=== PATIENT | male | born 1945 | race Caucasian/White ===

== ENCOUNTER 2019-06-22 05:24 | Emergency (ER) | payer MEDICARE, SELFPAY ==
--- NOTE | ~2019-06-22 | XR_ITS ---
EXAMINATION: XR chest 2V DATE: 06/22/2019 06:15 INDICATION: Shortness of breath TECHNIQUE: PA and lateral views of the chest were obtained. COMPARISON: Chest radiograph dated 02/07/2019 FINDINGS: The lungs remain clear with no focal airspace opacities, pulmonary edema, pleural effusion or pneumot horax. The cardiomediastinal silhouette is normal. Thoracic kyphosis with moderate spondylosis and ch ronic mild anterior wedging of a few mid thoracic vertebral bodies. There are bridging osteophytes at multiple levels in the spine, consistent with diffuse idiopathic skeletal hyperostosis (DISH). Sever e osteoarthritis at the left acromioclavicular joint. IMPRESSION: 1. No acute cardiopulmonary disease. Reviewed, dictated and finalized at location A. XML DEVELOPER
[2019-06-22 05:20] VITALS: BP 190/79; PULSE 44; RESP 13; TEMP 36.7; O2SAT 95
--- NOTE | 2019-06-22 05:46 | ECG_ITS ---
Measurements Intervals [place] Rate: 48 P: 40 PA: 218 QRS: 19 QRSD: 178 T: 8 QT: 493 QTc: 443 Interpretive Statements SINUS BRADYCARDIA WITH FIRST DEGREE AV BLOCK ATRIAL PREMATURE COMPLEX RIGHT BUNDLE BRANCH BLOCK ABNORMAL ECG Electronically Signed On 06-22-2019 7:06:24 INTEGRATED MARKETING SPECIALIST by Eric Sanders D.O.
[2019-06-22 05:58] LABS: Basophils Percent Auto 0.3 % (0.2-1.2); Eosinophils Absolute Auto 0.1 K/mm3 (0-0.3); Eosinophils Percent Auto 1.8 % (0-4.4); Hematocrit 45.2 % (42.0-52.0); Hemoglobin 14.3 g/dL (14.0-18.0); Immature Granulocyte Absolute 0.03 K/mm3 (0.00-0.031); Immature Granulocyte Percent A 0.4 % (0-0.5); Lymphocytes Absolute Auto 0.84 K/mm3 (0.9-3.2); Lymphocytes Percent Auto 10.8 % (18.3-44.2); Mean Corpuscular HGB Conc 31.6 g/dl (32-36); Mean Corpuscular Hemoglobin 29.5 pg (26-34); Mean Corpuscular Volume 93.4 fl (80-100); Mean Platelet Volume 10.7 fl (7.4-10.4); Monocytes Absolute Auto 0.6 K/mm3 (0.1-0.6); Monocytes Percent Auto 7.7 % (2.6-8.5); Neutrophils Absolute Auto 6.2 K/mm3 (1.3-6.7); Platelet Count Result 145 k/mm3 (150-375); Red Blood Count 4.84 M/mm3 (4.6-6.20); Red Cell Distribution Width 14.6 % (11.5-14.5); White Blood Count 7.8 K/mm3 (4.5-10.0)
[2019-06-22 06:10] LABS: Blood Urea Nitrogen 11 mg/dL (9-20); Carbon Dioxide 34 mmol/L (22-30); Chloride 99 mmol/L (98-107); Estimated Glomerular Filt Rate > 60; Glucose 90 mg/dL (75-110); Potassium 3.2 mmol/L (3.4-5.0); Sodium 142 mmol/L (137-145)
[2019-06-22] MEDS: ALBUTEROL SULFATE NEB 2.5 MG/0.5 ML INH 5 MG INHALATION (06:46)
[2019-06-22] MEDS: IPRATROPIUM BR 0.02% INH SOLN 0.5 MG/2.5 ML VIAL INHALATION (06:46)
[2019-06-22 06:51] VITALS: PULSE 41; RESP 16
--- NOTE | 2019-06-22 06:52 | ED.SOB ---
HPI - SOB/Dyspnea General Chief Complaint: Shortness of Breath/Dyspnea Stated Complaint: not feeling right Time Seen by Provider: 06/22/19 06:12 History of Present Illness HPI Narrative: Shortness of breath and high blood pressure since about 0430 this morning. Awoke from sleep this morning and wasn't feeling right, so he checked his blood pressure. It was elevated at abot 190/90. He then began checking it obsessively and it was consistently elevated. During this time he also began to feel mildly SOB. He said that this may have just been in his head. Additionally he did feel dizzy. He has significant h/o CAD with multiple stents, most recent last month. He is a long time smoker and reports quitting yesterday. No fever, cough, congestion, nausea. Related Data Home Medications Medication Instructions Recorded Confirmed atorvastatin 20 mg PO HS 06/20/19 06/20/19 budesonide 9 mg PO QAM 06/20/19 06/20/19 bupropion HCl 150 mg PO BID 06/20/19 06/20/19 clopidogrel 75 mg PO DAILY 06/20/19 06/20/19 colestipol 1 g PO BID 06/20/19 06/20/19 dicyclomine 10 mg PO QID 06/20/19 06/20/19 etodolac 300 mg PO TID 06/20/19 06/20/19 famotidine 40 mg PO DAILY 06/20/19 06/20/19 ferrous sulfate 325 mg PO DAILY 06/20/19 06/20/19 furosemide 80 mg PO DAILY 06/20/19 06/20/19 gabapentin 600 mg PO QID 06/20/19 06/20/19 isosorbide mononitrate 60 mg PO DAILY 06/20/19 06/20/19 losartan 100 mg PO DAILY 06/20/19 06/20/19 modafinil 300 mg PO QAM 06/20/19 06/20/19 omega-3 fatty acids 1,000 mg PO DAILY 06/20/19 06/20/19 oxycodone-acetaminophen 1 tablet PO Q4H PRN 06/20/19 06/20/19 pantoprazole 40 mg PO QAM 06/20/19 06/20/19 trazodone 100 mg PO HS 06/20/19 06/20/19 zinc sulfate 220 mg PO DAILY 06/20/19 06/20/19 Allergies Allergy/AdvReac Type Severity Reaction Status Date / Time No Known Allergies Allergy Unknown Unverified 02/07/19 06:38 No Known Allergies Allergy Uncoded 02/07/19 06:38 Review of Systems Review of Systems: All systems reviewed & are unremarkable except as noted in HPI and below Constitutional: Constitutional: Denies chills, Denies fever(s) and Denies weakness Eyes: Eyes: Denies change in vision ENT: Reports dizziness Cardiovascular: Cardiovascular: Denies chest pain and Reports slow heart rate Respiratory: Respiratory: Denies chest congestion, Denies cough and Reports dyspnea Gastrointestinal: Gastrointestinal: Denies abdominal pain and Denies nausea Musculoskeletal: Musculoskeletal: Denies myalgias Neurologic: Denies numbness and Denies weakness Psychiatric: Psychiatric: Reports anxiety PMFSH Past Medical History Medical History (Updated 06/22/19 @ 08:33 by Pradeep Ignacio MD) CAD (coronary artery disease) Surgical History Surgical History Stented coronary artery Family History Family History Father Family history of liver disease Family history of heart disease in male family member before age 55 Sibling Family history of malignant neoplasm Family history of heart disease in male family member before age 55 Other Hypertension Social History Social History Smoking packs per day: 1.5 Smoking cigarettes per day: 30.0 Years smoked: 55 Smoking pack-years: 82.50 Smoking status: Current every day smoker Tobacco type: cigarettes Second hand tobacco smoke exposure: Yes Alcohol intake: current Gender identity (if verbalized by the patient): Female Exam Const: General: healthy appearing and alert Nutritional Appearance: well nourished Orientation/consciousness: patient oriented x3 HENMT: Head: normal to inspection Neck: Neck: normal visual inspection and no lymphadenopathy Chest: Chest palpation & inspection: normal inspection of the chest Resp: Effort & Inspection: normal respiratory effort Auscultation: rhonchi
[2019-06-22 06:56] VITALS: PULSE 43; RESP 14
[2019-06-22] MEDS: hydrALAZINE HCL 20 MG/ML VIAL 10 MG IV PUSH (07:07)
--- NOTE | 2019-06-22 07:50 | PC.NURSE ---
PT REPORTS CHEST PAIN, DR WHITLOCK MADE AWARE AND WILL GO SPEAK WITH PT
[2019-06-22 08:30] VITALS: BP 155/69; PULSE 55; RESP 18; O2SAT 97
[2019-06-22 09:30] LABS: Troponin I < 0.012 ng/mL (0.000-0.034)
[2019-06-22 10:00] VITALS: BP 167/75; PULSE 55; RESP 16; O2SAT 98
== END 2019-06-22 10:00 | disposition home or self-care (01) ==
PROVIDERS: Emergency Medicine; Emergency Provider Emergency Medicine; PCP Family Medicine Adolescent Medicine
DX: R06.02 Shortness of breath (principal); I10 Essential (primary) hypertension; I25.10 Atherosclerotic heart disease of native coronary artery without angina pectoris; Z95.5 Presence of coronary angioplasty implant and graft; F17.210 Nicotine dependence, cigarettes, uncomplicated; R00.1 Bradycardia, unspecified; I44.0 Atrioventricular block, first degree; I45.10 Unspecified right bundle-branch block
CPT/HCPCS: 36415; 71046; 80048; 84484; 85025; 93005; 94640; 96374; 99284; J0360

== ENCOUNTER 2019-06-28 13:33 | Outpatient (CLI) | payer MEDICARE, SELFPAY ==
[2019-06-28 14:47] LABS: Basophils Percent Auto 0.2 % (0.2-1.2); Eosinophils Absolute Auto 0.1 K/mm3 (0-0.3); Eosinophils Percent Auto 1.5 % (0-4.4); Hematocrit 44.5 % (42.0-52.0); Immature Granulocyte Absolute 0.03 K/mm3 (0.00-0.031); Immature Granulocyte Percent A 0.4 % (0-0.5); Immature Platelet Fraction Pct 4.2 % (0.9-11.2); Lymphocytes Absolute Auto 0.75 K/mm3 (0.9-3.2); Lymphocytes Percent Auto 9.2 % (18.3-44.2); Mean Corpuscular HGB Conc 31.5 g/dl (32-36); Mean Corpuscular Hemoglobin 29.5 pg (26-34); Mean Corpuscular Volume 93.9 fl (80-100); Mean Platelet Volume 10.9 fl (7.4-10.4); Monocytes Absolute Auto 0.5 K/mm3 (0.1-0.6); Monocytes Percent Auto 6.3 % (2.6-8.5); Neutrophils Absolute Auto 6.7 K/mm3 (1.3-6.7); Neutrophils Percent Auto 82.4 % (45.5-73.1); Platelet Count Result 132 k/mm3 (150-375); Red Blood Count 4.74 M/mm3 (4.6-6.20); Red Cell Distribution Width 14.1 % (11.5-14.5); White Blood Count 8.1 K/mm3 (4.5-10.0)
[2019-06-28 15:01] LABS: Alanine Aminotransferase 15 U/L (4-50); Albumin Level 3.6 g/dL (3.5-5.1); Alkaline Phosphatase 81 U/L (38-126); Aspartate Amino Transferase 19 U/L (17-59); Bilirubin,Total 0.8 mg/dL (0.2-1.3); Blood Urea Nitrogen 13 mg/dL (9-20); Calcium 9.1 mg/dL (8.4-10.2); Carbon Dioxide 35 mmol/L (22-30); Chloride 98 mmol/L (98-107); Estimated Glomerular Filt Rate > 60; Glucose 88 mg/dL (75-110); Potassium 3.9 mmol/L (3.4-5.0); Sodium 142 mmol/L (137-145)
[2019-07-02 23:22] LABS: Abnormal Protein Band 1 0.6 g/dL; Albumin 3.4 g/dL (3.8-4.8); Alpha 1 Globulin 0.3 g/dL (0.2-0.3); Alpha 2 Globulin 0.7 g/dL (0.5-0.9); Beta 1 Globulin 0.4 g/dL (0.4-0.6); Gamma Globulin 0.8 g/dL (0.8-1.7); Protein, Total 5.7 g/dL (6.1-8.1)
== END 2019-06-28 13:34 | disposition home or self-care (01) ==
PROVIDERS: PCP Family Medicine Adolescent Medicine
DX: K27.9 Peptic ulcer, site unspecified, unspecified as acute or chronic, without hemorrhage or perforation (principal); K52.838 Other microscopic colitis
CPT/HCPCS: 36415; 80053; 84155; 84165; 85025; 85055

== ENCOUNTER 2019-06-30 11:07 | Outpatient (CLI) | payer MEDICARE, SELFPAY ==
[2019-07-03 19:23] LABS: Albumin 24 Hr Urine 100 %; Creatinine, 24 Hr Urine 1.95 g/24 h (0.50-2.15); Total Protein/Creatinine Ratio 115 mg/g creat (<115)
[2019-07-13 10:37] LABS: Kappa & Lambda Quant. Not Indicated
== END 2019-06-30 11:08 | disposition home or self-care (01) ==
PROVIDERS: PCP Family Medicine Adolescent Medicine
DX: K27.9 Peptic ulcer, site unspecified, unspecified as acute or chronic, without hemorrhage or perforation (principal); K52.838 Other microscopic colitis; I25.10 Atherosclerotic heart disease of native coronary artery without angina pectoris
CPT/HCPCS: 36415; 81050; 82570; 83883; 84156; 84166; 86335

== ENCOUNTER 2019-07-03 07:00 | Outpatient (RCR) | payer MEDICARE, SELFPAY ==
[2019-06-20 09:59] VITALS: PULSE 50
--- NOTE | 2019-06-22 13:25 | PCCPR ---
Absent due to ED visit Ivan called states he was not sure if he was eligible to attend today. States he was in the ED last night for high B/P spike. He was taken by ambulance to [facility] ED for x 2 elevated B/P readings and SOB at home during the night. States he was treated and released. Explained he needed to see one of his MD's to obtain a release to resume rehab.
--- NOTE | 2019-06-29 18:29 | PCCPR ---
Called Ivan to check in. Last we heard from he he had went to the ED for elevated BP & SOB. He states he received a release from Dr. Talbot to return but needs to switch class times. He plans to start coming on Wednesday at 0700.
--- NOTE | 2019-07-12 10:00 | PCCPR ---
No call no show-Spoke with Ivan who states he pulled a muscle the last time he was here. He states he went to the doctor and they gave him steroids and told him to use Salonpas patches. He states it is feeling better and he hopes to come back next week.
--- NOTE | 2019-07-19 15:13 | PCCPR ---
Ivan has not returned, called him today and he stated that he did not think that he would be able to exercise anytime soon due to leg pain so will discharge from program.
== END 2019-07-19 18:38 | disposition home or self-care (01) ==
LOC: ANHCPREHAB 07:00
PROVIDERS: PCP Family Medicine Adolescent Medicine
DX: Z95.5 Presence of coronary angioplasty implant and graft (principal)
CPT/HCPCS: 93798

== ENCOUNTER 2020-06-26 13:20 | Emergency (ER) | payer MEDICARE, SELFPAY ==
--- NOTE | ~2020-06-26 | XR_ITS ---
EXAMINATION: XR knee RT 3V DATE: 06/26/2020 14:37 INDICATION: Anterior right knee pain post fall TECHNIQUE: Anteroposterior, oblique and crosstable lateral views of the right knee were obtained COMPARISON: None. FINDINGS: Linear lucency at the medial side of the patella with subtle cortical discontinuity at the articular surface of the medial facet consistent with nondisplaced fracture. Alignment remains essentially gris omic. No other lesions suspicious for acute fracture. Likely old healed fracture at the proximal meta diaphyseal region of the right fibula. At least mild joint space narrowing the medial compartment and tiny marginal osteophytes in the medial and patellofemoral compartments consistent with mild tricomp artmental osteoarthritis. Subtle chondrocalcinosis at the medial and lateral compartments. Enthesophy birgit at the anterior proximal pole of the patella. Very small right knee joint effusion. IMPRESSION: 1. Nondisplaced intra-articular fracture at the medial side of the patella. Reviewed, dictated and finalized at location A. ENT SEWING MACHINE OPERATOR
--- NOTE | ~2020-06-26 | XR_ITS ---
EXAMINATION: XR hand LT min 3V INDICATION: Left hand pain, initial encounter TECHNIQUE: Three views of the left hand are obtained. COMPARISON: None available FINDINGS: There appears to be a nondisplaced oblique fracture of the proximal aspect of the first dis giuseppe phalanx extending into the interphalangeal joint. There is soft tissue swelling of the first fing er. Moderate to severe osteoarthritis is present at the first carpometacarpal joint as well as at the first metacarpophalangeal joint. There is also moderate osteoarthritis in multiple interphalangeal j oints. IMPRESSION: 1. Likely nondisplaced intra-articular fracture at the base of the first distal phalanx. Reviewed, dictated and finalized at location A. T PROMOTER
--- NOTE | ~2020-06-26 | XR_ITS ---
EXAMINATION: XR shoulder RT min 2V INDICATION: Right shoulder pain TECHNIQUE: Four views of the right shoulder are submitted. COMPARISON: 06/22/2019 FINDINGS: The bones are osteopenic which limits the sensitivity for fracture however none is seen. Th ere is advanced osteoarthritis of the acromioclavicular and glenohumeral joints. Soft tissues are unr emarkable. IMPRESSION: 1. No acute osseous abnormality, sensitivity limited by osteopenia. Reviewed, dictated and finalized at location A. NSTONE POLISHER OPERATOR
[2020-06-26 13:33] VITALS: BP 182/75; PULSE 55; RESP 22; TEMP 36.1; O2SAT 97
--- NOTE | 2020-06-26 14:13 | ED.GENADULT ---
HPI - General Adult General Chief complaint: Fall Stated complaint: fall Time Seen by Provider: 06/26/20 13:33 Source: patient Mode of arrival: ambulatory Limitations: no limitations History of Present Illness HPI narrative: Patient is a 74-year-old male who presents to emergency department for evaluation of injuries related to a ground-level fall from 3 days ago patient was ambulating when he tripped over a dog toy falling backwards striking the right shoulder and injuring the right knee as well as the left hand patient notes aching pain of the thumb with bruising and swelling with difficulty with range of motion patient notes mild aching pain to the right shoulder and right knee patient denies other injuries or complaints presents per private vehicle in no distress has been taking his chronic pain medication with some improvement Related Data Home Medications Medication Instructions Recorded Confirmed atorvastatin 20 mg PO HS 06/20/19 06/20/19 budesonide 9 mg PO QAM 06/20/19 06/20/19 bupropion HCl 150 mg PO BID 06/20/19 06/20/19 clopidogrel 75 mg PO DAILY 06/20/19 06/20/19 colestipol 1 g PO BID 06/20/19 06/20/19 dicyclomine 10 mg PO QID 06/20/19 06/20/19 etodolac 300 mg PO TID 06/20/19 06/20/19 famotidine 40 mg PO DAILY 06/20/19 06/20/19 ferrous sulfate 325 mg PO DAILY 06/20/19 06/20/19 furosemide 80 mg PO DAILY 06/20/19 06/20/19 gabapentin 600 mg PO QID 06/20/19 06/20/19 isosorbide mononitrate 60 mg PO DAILY 06/20/19 06/20/19 losartan 100 mg PO DAILY 06/20/19 06/20/19 modafinil 300 mg PO QAM 06/20/19 06/20/19 omega-3 fatty acids 1,000 mg PO DAILY 06/20/19 06/20/19 oxycodone-acetaminophen 1 tablet PO Q4H PRN 06/20/19 06/20/19 pantoprazole 40 mg PO QAM 06/20/19 06/20/19 trazodone 100 mg PO HS 06/20/19 06/20/19 zinc sulfate 220 mg PO DAILY 06/20/19 06/20/19 Allergies Allergy/AdvReac Type Severity Reaction Status Date / Time ticagrelor [From Brilinta] Allergy Anxiety Verified 06/26/20 13:45 Review of Systems Review of Systems: All systems reviewed & are unremarkable except as noted in HPI and below PMFSH Past Medical History Medical History CAD (coronary artery disease) Surgical History Surgical History Stented coronary artery Family History Family History Father Family history of liver disease Family history of heart disease in male family member before age 55 Sibling Family history of malignant neoplasm Family history of heart disease in male family member before age 55 Other Hypertension Social History Social History Smoking packs per day: 1.5 Smoking cigarettes per day: 30.0 Years smoked: 55 Smoking pack-years: 82.50 Smoking status: Current every day smoker Tobacco type: cigarettes Second hand tobacco smoke exposure: Yes Alcohol intake: current Gender identity (if verbalized by the patient): Female Exam Narrative: Exam Narrative: GENERAL: Well-appearing, well-nourished, and in no acute distress. HEAD: Normocephalic, atraumatic. EYES: PERRLA and EOMI. ENT: Nares clear, no rhinorrhea or epistaxis. Mucous membranes moist. CHEST: Clear to auscultation. No respiratory distress. No wheezes rales or rhonchi HEART: Regular rate and rhythm. No murmur heard. Normal peripheral pulses. EXTREMITIES: Tenderness of the right thumb with some bruising. Tenderness to the anterior right knee. Tenderness of the right shoulder. No cervical thoracic or lumbar tenderness SKIN: Warm, dry, no rash. NEURO: No focal deficits. Alert and oriented x3. Neurovascularly intact. Cranial nerves II through XII grossly intact. Normal speech and gait PSYCH: Normal mood and affect. Course Course Emergency Course: Patient in the room no distress aware of case findings treatment plan
== END 2020-06-26 15:41 | disposition home or self-care (01) ==
PROVIDERS: Emergency Provider Emergency Medicine; PCP Family Medicine Adolescent Medicine
DX: S82.091A Other fracture of right patella, initial encounter for closed fracture (principal); S62.525A Nondisplaced fracture of distal phalanx of left thumb, initial encounter for closed fracture; I25.10 Atherosclerotic heart disease of native coronary artery without angina pectoris; Z95.5 Presence of coronary angioplasty implant and graft; F17.210 Nicotine dependence, cigarettes, uncomplicated; M85.811 Other specified disorders of bone density and structure, right shoulder; W18.09XA Striking against other object with subsequent fall, initial encounter
CPT/HCPCS: 29130; 73030; 73130; 73562; 99284

== ENCOUNTER 2021-09-02 10:17 | Outpatient (CLI) | payer MEDICARE, SELFPAY ==
[2021-09-02 11:03] LABS: Basophils Percent Auto 0.5 % (0.2-1.2); Eosinophils Absolute Auto 0.2 K/mm3 (0-0.3); Eosinophils Percent Auto 3.8 % (0-4.4); Hematocrit 38.9 % (42.0-52.0); Hemoglobin 12.1 g/dL (14.0-18.0); Immature Granulocyte Absolute 0.02 K/mm3 (0.00-0.031); Immature Granulocyte Percent A 0.3 % (0-0.5); Immature Platelet Fraction Pct 4.3 % (0.9-11.2); Lymphocytes Absolute Auto 0.96 K/mm3 (0.9-3.2); Lymphocytes Percent Auto 15.9 % (18.3-44.2); Mean Corpuscular HGB Conc 31.1 g/dl (32-36); Mean Corpuscular Hemoglobin 29.4 pg (26-34); Mean Corpuscular Volume 94.6 fl (80-100); Mean Platelet Volume 10.4 fl (7.4-10.4); Monocytes Absolute Auto 0.5 K/mm3 (0.1-0.6); Monocytes Percent Auto 8.9 % (2.6-8.5); Neutrophils Absolute Auto 4.3 K/mm3 (1.3-6.7); Neutrophils Percent Auto 70.6 % (45.5-73.1); Platelet Count Result 142 k/mm3 (150-375); Red Blood Count 4.11 M/mm3 (4.6-6.20); Red Cell Distribution Width 14.2 % (11.5-14.5)
[2021-09-02 11:16] LABS: Creatinine Urine 61.7 mg/dL; Total Protein Urine Random 10 mg/dL; Ur Ttl Prot Creatinine Ratio 0.16 mg/mg (0-0.20)
[2021-09-02 11:19] LABS: Albumin Level 3.7 g/dL (3.5-5.1); Anion Gap 6 mmol/L (8-16); Blood Urea Nitrogen 15 mg/dL (9-20); Calcium 8.8 mg/dL (8.4-10.2); Carbon Dioxide 29 mmol/L (22-30); Chloride 104 mmol/L (98-107); Estimated Glomerular Filt Rate > 60; Glucose 100 mg/dL (65-110); Potassium 3.8 mmol/L (3.4-5.0); Sodium 139 mmol/L (137-145)
[2021-09-02 11:30] LABS: Add Urine Microscopic? YES; Appearance Urine Clear (Clear); Bilirubin Urine Negative (Negative); Blood Urine Negative (Negative); Color Urine Yellow (Yellow); Glucose Urine UA Negative (Negative); Ketones Urine Negative (Negative); Leukocyte Esterase Ur Negative LEU/UL (NEGATIVE); Nitrate Urine Negative (Negative); Protein Urine Negative (Negative); RBC Urine 0-2 /hpf (0-2); Specific Grav Ur 1.012 (1.001-1.035); WBC Urine 0-3 /hpf (0-3)
== END 2021-09-02 10:18 | disposition home or self-care (01) ==
PROVIDERS: PCP Family Medicine Adolescent Medicine
DX: N18.30 Chronic kidney disease, stage 3 unspecified (principal); D63.1 Anemia in chronic kidney disease; R80.0 Isolated proteinuria; N25.0 Renal osteodystrophy
CPT/HCPCS: 36415; 80069; 81001; 82570; 84156; 85025; 85055

== ENCOUNTER → 2021-12-15 15:36 | Outpatient (CLI) | payer MEDICARE, SELFPAY ==
--- NOTE | ~2021-12-15 | MR_ITS ---
EXAMINATION: MR lumbar spine wo con DATE: 12/15/2021 16:19 INDICATION: Back pain. Radiculopathy. TECHNIQUE: Magnetic resonance imaging (MRI) of the lumbar spine was performed without intravenous con trast. Sequences included sagittal T2-weighted FSE, sagittal T2-weighted FS FSE, sagittal T1-weighted FSE, and axial T2-weighted FSE. COMPARISON: CT lumbar spine 02/07/2019 FINDINGS: There is 11 degrees levoscoliosis of thoracolumbar spine. There is 5 mm anterolisthesis of L4 on L5. There is mild chronic height loss of L5 vertebral body posteriorly. There is mildly decreas ed disc height at L4-L5 and moderately decreased disc height at L5-S1. The distal spinal cord signal intensity is normal. The conus medullaris is at T12-L1. There are cysts in left kidney measuring up t o 2.3 cm. There is a 3.7 cm fusiform infrarenal aortic aneurysm. The following disc levels are specif ically discussed: L1-L2: There is a left foraminal protrusion. There is mild bilateral facet joint osteoarthritis. Ther e is mild left neural foraminal stenosis. There is no central canal stenosis. L2-L3: The disc is bulging. There is moderate bilateral facet joint osteoarthritis. There is mild rodriguez ateral neural foraminal stenosis. There is mild central canal stenosis. L3-L4: The disc is bulging and has an annular fissure. There is severe bilateral facet joint osteoart hritis. There is hypertrophy of the ligamentum flavum. There is moderate bilateral neural foraminal s tenosis. There is severe central canal stenosis. L4-L5: The disc is bulging and has an annular fissure. There is severe bilateral facet joint osteoart hritis. There is hypertrophy of the ligamentum flavum. There is moderate right and mild left neural f oraminal stenosis. There is moderate central canal stenosis. L5-S1: The disc is bulging and has an annular fissure. There is severe bilateral facet joint osteoart hritis. There is mild right and moderate left neural foraminal stenosis. There is mild central canal stenosis. IMPRESSION: 1. Severe lumbar spondylosis. 2. 3.7 cm fusiform infrarenal aortic aneurysm. Reviewed, dictated and finalized at location A.
== END ==
PROVIDERS: Visit Provider Nurse Practitioner Family
DX: M54.50 Low back pain, unspecified (principal); M47.816 Spondylosis without myelopathy or radiculopathy, lumbar region; I71.4 Abdominal aortic aneurysm, without rupture
CPT/HCPCS: 72148

== ENCOUNTER 2022-02-04 17:08 | Emergency (ER) | payer MEDICARE, SELFPAY ==
--- NOTE | ~2022-02-04 | XR_ITS ---
EXAMINATION: XR pelvis 1-2V DATE: 02/04/2022 18:56 INDICATION: Fall with bruising to the right hip TECHNIQUE: An anteroposterior view of the pelvis was obtained. COMPARISON: Pelvis radiograph dated 02/07/2019 and abdomen and pelvis CT dated 05/06/2015 FINDINGS: Bone alignment is normal. No fracture. Mild to moderate osteoarthritis at the bilateral hips. Moderat e to severe lumbar spondylosis. Moderate bilateral sacroiliac osteoarthritis. Scattered enthesophytes . Atherosclerotic calcification along the abdominal aorta delineating and approximately 4.8 cm fusifo rm aneurysm. IMPRESSION: 1. Degenerative skeletal changes. No acute osseous abnormality. 2. Abdominal aortic aneurysm. Reviewed, dictated and finalized at location A.
--- NOTE | ~2022-02-04 | XR_ITS ---
EXAMINATION: XR shoulder RT min 2V, XR chest 2V DATE: 02/04/2022 18:56 INDICATION: Right shoulder and chest pain post fall TECHNIQUE: 1. AP internally and externally rotated, AP oblique externally rotated and transscapular Y views of t he right shoulder were obtained. 2. PA and lateral views of the chest were obtained. COMPARISON: Right shoulder radiograph dated 06/26/2020 and chest radiograph dated 06/22/2019 FINDINGS: CHEST: Lungs are clear with no focal airspace opacities, pulmonary edema, pleural effusion or pneumothorax. Cardiomediastinal silhouette is normal. Mild thoracic kyphosis with chronic mild anterior wedging of a couple mid thoracic vertebral bodies. There are bridging osteophytes at multiple levels in the spin e, consistent with diffuse idiopathic skeletal hyperostosis (DISH). Right shoulder: Normal alignment. No fracture. Moderate right glenohumeral osteoarthritis. Severe right acromioclavi cular osteoarthritis. Acromioclavicular joint is normal. Soft tissues are unremarkable. IMPRESSION: 1. No acute cardiopulmonary disease. 2. Moderate right glenohumeral and severe acromioclavicular osteoarthritis. No acute osseous abnormal ity. Reviewed, dictated and finalized at location A. IMPRESSION: 1. No acute cardiopulmonary disease. 2. Moderate right glenohumeral and severe acromioclavicular osteoarthritis. No acute osseous abnormality.
--- NOTE | ~2022-02-04 | CT_ITS ---
EXAMINATION: CTA chest abdomen pelvis DATE: 02/04/2022 20:57 INDICATION: Abdominal aortic aneurysm. Back pain radiating to the groin post fall down stairs 10 days prior. TECHNIQUE: Computed tomographic angiography (CTA) of the chest and abdomen and pelvis was performed w ith 100 cc of Omnipaque-350 intravenous contrast. Additional 3D reconstructions utilizing rotating ma ximum intensity projection (MIP) were performed. Automated exposure control and iterative reconstruct ion technique were employed. The dose-length product was 1271.80 mGy-cm. COMPARISON: 05/06/2015 FINDINGS: Chest: Mild emphysema at the apices of the lungs. Mild discoid atelectasis at the lingula and mild dependent atelectasis in the bilateral lower lobes. No pneumonia, pulmonary edema, pleural effusion or pneumot horax. Mild cardiomegaly. Atherosclerotic coronary artery calcification. No pericardial effusion. Tho racic aorta is normal in caliber with no dissection. No pathologically enlarged thoracic lymphadenopa thy. Mild thoracic kyphosis with chronic mild anterior wedging of a couple mid thoracic vertebral bod ies. Abdomen and pelvis: Cholecystectomy clips the gallbladder fossa. Liver, spleen, pancreas, bilateral adrenal glands are no rmal. Multiple left renal cysts measuring up to 3.5 cm. 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 Bladder is normal. Extensive colonic diverticulosis w ithout adjacent inflammatory change to suggest diverticulitis. No bowel obstruction. The appendix is not visualized and also reportedly surgically absent. Fusiform infrarenal abdominal aortic aneurysm m easuring up to 4.4 cm in maximal diameter. No free intraperitoneal gas or fluid. No pathologically en larged abdominal or pelvic lymphadenopathy. Mild lumbar spondylosis with multilevel severe facet oste oarthritis. 5 mm anterolisthesis L4 on L5. No acute osseous abnormality. IMPRESSION: 1. No evident fracture or acute intrathoracic, abdominal or pelvic process. 2. 4.4 cm fusiform infrarenal abdominal aortic aneurysm. 3. Cardiomegaly. Reviewed, dictated and finalized at location A.
[2022-02-04 17:10] VITALS: BP 161/67; PULSE 62; RESP 16; TEMP 36.8; O2SAT 100
[2022-02-04 18:17] VITALS: BP 156/71; PULSE 57; RESP 21; O2SAT 99
--- NOTE | 2022-02-04 19:19 | ED.GENADULT ---
HPI - General Adult General Chief complaint: Fall Stated complaint: pain r/t fall Time Seen by Provider: 02/04/22 17:36 History of Present Illness HPI narrative: This is a 76-year-old man presenting to the ED with after a fall 10 days ago. Patient says that he was going down some stairs when he lost balance. He hit his shoulder, middle of his back and his hip on the way down. Patient says he also struck the side of his face but he did not lose consciousness, he is not on blood thinners, he is not complaining of headache at this time. He denies any neck pain. He denies numbness tingling or weakness to any extremity. He has been ambulatory since the incident and been taking his oxycodone 10 mg q.4 as instructed. Patient is currently complaining of right shoulder pain, pain in the middle of his back, and right hip pain. Related Data Home Medications Medication Instructions Recorded Confirmed colestipol 1 gram tablet 1 g PO BID 06/20/19 10/08/21 famotidine 40 mg tablet 40 mg PO DAILY 06/20/19 10/08/21 ferrous sulfate 325 mg (65 mg 325 mg PO DAILY 06/20/19 10/08/21 iron) tablet Allergies Allergy/AdvReac Type Severity Reaction Status Date / Time ticagrelor [From Brilinta] Allergy Anxiety Verified 02/04/22 18:19 Review of Systems Review of Systems: CONSTITUTIONAL: Denies night sweats. EYES: No eye pain ENT: Denies rhinorrhea CARDIOVASCULAR: Denies palpitations RESPIRATORY: Denies hemoptysis GASTROINTESTINAL: Denies hematemesis GENITOURINARY: Denies hematuria. SKIN: Denies rash MUSCULOSKELETAL: Denies myalgia. NEUROLOGIC: Denies weakness. PSYCHIATRIC: Denies delusions [facility] Past Medical History Medical History (Updated 02/04/22 @ 21:56 by Edward Moeller MD) Chronic back pain Normal colonoscopy 08/24 Surgical History Surgical History History of cholecystectomy History of foot surgery Left 2005; Right 2010 History of right nephrectomy 2010 History of rotator cuff surgery Left Stented coronary artery Family History Family History Father Hypertension Acute myocardial infarction Sibling Family history of malignant neoplasm Family history of heart disease in male family member before age 55 Social History Social History Smoking packs per day: 1.5 Smoking cigarettes per day: 30.0 Years smoked: 55 Smoking pack-years: 82.50 Smoking status: Current every day smoker Tobacco type: cigarettes Second hand tobacco smoke exposure: Yes Alcohol intake: never Substance use: never Substance use type: marijuana Gender identity (if verbalized by the patient): Female Sexual Orientation (if Verbalized by the Patient): Straight or Heterosexual Spiritual care concerns: No Agree to blood products: Yes Exam Narrative: APPEARANCE: No apparent distress. Head atraumatic. EYES: PERRLA/EOMI, NOSE: Normal no drainage NECK: Supple, Trachea midline RESPIRATORY: CTAB, No increased work of breathing. CARDIOVASCULAR: S1S2 appreciated ABDOMINAL: Soft, nontender, nondistended, MUSCULOSKELETAl: focal exam of the right upper extremity revealed no obvious deformities of the right shoulder. Patient has pain with active range of motion but not passive range of motion. Median ulnar and radial nerve distributions are intact with 5/5 motor strength pulses are +2 in the radial ulnar distribution cap refills less than 2 seconds. Back exam: No ecchymosis, step-offs or midline tenderness. There is some tenderness to the parathoracic muscles at T10-T12. Patient's right knee is essentially locked at 180? all of this is chronic. Patient has no pain in the hips with ranging of the lower extremities. NEURO: Alert. Cranial nerves 2-12 grossly intact. Sensation light touch, motor function cerebellar function intact for 4 extremities. Gai
[2022-02-04] MEDS: methocarbamoL 750 MG TABLET PO (19:47)
[2022-02-04 20:20] LABS: Basophils Percent Auto 0.4 % (0.2-1.2); Eosinophils Absolute Auto 0.2 K/mm3 (0-0.3); Eosinophils Percent Auto 2.2 % (0-4.4); Immature Granulocyte Absolute 0.02 K/mm3 (0.00-0.031); Immature Granulocyte Percent A 0.3 % (0-0.5); Lymphocytes Absolute Auto 1.03 K/mm3 (0.9-3.2); Lymphocytes Percent Auto 14.8 % (18.3-44.2); Mean Corpuscular HGB Conc 31.6 g/dl (32-36); Mean Platelet Volume 10.4 fl (7.4-10.4); Monocytes Absolute Auto 0.5 K/mm3 (0.1-0.6); Monocytes Percent Auto 6.5 % (2.6-8.5); Neutrophils Absolute Auto 5.3 K/mm3 (1.3-6.7); Neutrophils Percent Auto 75.8 % (45.5-73.1); Platelet Count Result 162 k/mm3 (150-375); Red Cell Distribution Width 14.1 % (11.5-14.5)
[2022-02-04 20:33] LABS: Prothrombin Time 13.1 Seconds (11.1-14.7)
[2022-02-04 20:34] LABS: Alanine Aminotransferase 16 U/L (6-50); Albumin Level 3.6 g/dL (3.5-5.1); Alkaline Phosphatase 89 U/L (38-126); Anion Gap 6 mmol/L (8-16); Aspartate Amino Transferase 23 U/L (17-59); Bilirubin,Total 0.4 mg/dL (0.2-1.3); Blood Urea Nitrogen 14 mg/dL (9-20); Calcium 8.9 mg/dL (8.4-10.2); Carbon Dioxide 32 mmol/L (22-30); Chloride 104 mmol/L (98-107); Estimated CRCL calculation 50 ml/min; Estimated Glomerular Filt Rate 59; Glucose 97 mg/dL (65-110); Potassium 3.8 mmol/L (3.4-5.0); Sodium 142 mmol/L (137-145)
[2022-02-04 21:00] VITALS: BP 161/86; PULSE 58; RESP 16; O2SAT 97
[2022-02-04 22:46] VITALS: BP 148/86; PULSE 66; RESP 16; O2SAT 99
== END 2022-02-04 22:15 | disposition home or self-care (01) ==
PROVIDERS: Emergency Provider Emergency Medicine; PCP Family Medicine Adolescent Medicine
DX: M54.50 Low back pain, unspecified (principal); I71.4 Abdominal aortic aneurysm, without rupture; M25.511 Pain in right shoulder; M54.6 Pain in thoracic spine; R07.9 Chest pain, unspecified; F17.210 Nicotine dependence, cigarettes, uncomplicated; Z90.5 Acquired absence of kidney
CPT/HCPCS: 36415; 71046; 71275; 72170; 73030; 74174; 80053; 83735; 85025; 85610; 85730; 99284; A9270; Q9967

== ENCOUNTER 2022-03-15 15:07 | Inpatient (IN) | payer MEDICARE, SELFPAY ==
[2022-03-15] VITALS (15 sets, daily range): BP systolic 100–133; BP diastolic 43–75; PULSE 57–84; RESP 14–24; TEMP 36.8–38; O2SAT 93–100
--- NOTE | ~2022-03-15 | MR_ITS ---
EXAMINATION: MR brain/brain stem wo/w con DATE: 03/17/2022 16:10 INDICATION: Altered mental status. TECHNIQUE: Magnetic resonance imaging (MRI) of the brain and brainstem was performed without and with 19 mL MultiHance intravenous contrast. COMPARISON: Head CT 03/15/2022 FINDINGS: There are scattered areas of nonspecific increased T2-weighted signal intensity in the cere bral white matter and jovon. 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 There is no intracranial hemorrhage, acute infarction, or abnormal intracranial mass lesion. The ventricles are n ormal in size. There are likely changes of ocular lens replacement surgeries. There is mild mucosal t hickening in the paranasal sinuses. The mastoid air cells are normal. IMPRESSION: 1. 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 2. Mild nonspecific cerebral white matter disease and pontine disease, which likely represents chroni c small vessel ischemic disease. Reviewed, dictated and finalized at location A. CIATE PROFESSOR OF SOCIOLOGY IMPRESSION: 1. 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 2. Mild nonspecific cerebral white matter disease and pontine disease, which hector coleman represents chronic small vessel ischemic disease.
--- NOTE | ~2022-03-15 | XR_ITS ---
EXAMINATION: XR chest 1V portable DATE: 03/17/2022 07:20 INDICATION: Shortness of breath TECHNIQUE: frontal view of the chest was obtained. COMPARISON: Chest radiograph dated 03/17/2022 at 6:05 AM FINDINGS: No significant interval change in patchy airspace opacities throughout the left lung sparing the apex and in the right midlung zone. More streaky atelectasis at the right lung base. No pneumothorax. No pneumothorax or right-sided pleural effusion. Left pleural effusion not excludable. Cardiomegaly. IMPRESSION: 1. No significant interval change in patchy airspace opacities throughout the left lung relatively sp aring the apex and in the right midlung zone which could represent multifocal pneumonia, asymmetric p ulmonary edema and left pleural effusion not excludable. 2. Cardiomegaly. Reviewed, dictated and finalized at location A. NTIFIC WRITER IMPRESSION: 1. No significant interval change in patchy airspace opacities throughout the l eft lung relatively sparing the apex and in the right midlung zone which could represent multifocal pneumonia, asymmetric pulmonary edema and left pleural eff usion not excludable. 2. Cardiomegaly.
--- NOTE | ~2022-03-15 | XR_ITS ---
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 RESULT: Lines, tubes, and devices: None. Lungs and pleura: Diffuse left and patchy right lung groundglass opacities. Left mid and lower lung consolidation. Moderate left costophrenic angle blunting. Cardiomediastinal silhouette: Stable. Other: No acute osseous or upper abdominal finding. IMPRESSION: Pulmonary opacities may reflect pneumonia or asymmetric edema. Small-moderate left pleural effusion. Reviewed, dictated and finalized at location K. INE CHAIN MAKER IMPRESSION: Pulmonary opacities may reflect pneumonia or asymmetric edema. Small-moderate l eft pleural effusion.
--- NOTE | ~2022-03-15 | XR_ITS ---
EXAMINATION: XR chest 1V portable DATE: 03/24/2022 09:40 INDICATION: Pneumonia. TECHNIQUE: A single frontal view of the chest was obtained. COMPARISON: Chest 2 views 03/21/2022, chest CT 02/04/2022 FINDINGS: There are airspace opacities in left mid and lower lung zones. There is a small left pleura l effusion. No pneumothorax. The heart size is normal. IMPRESSION: 1. Airspace opacities in left mid and lower lung zones with interval improvement, consistent with ate lectasis versus pneumonia. 2. Stable small left pleural effusion. Reviewed, dictated and finalized at location A. IALIST PHYSICIANS IMPRESSION: 1. Airspace opacities in left mid and lower lung zones with interval improvemen t, consistent with atelectasis versus pneumonia. 2. Stable small left pleural effusion.
--- NOTE | ~2022-03-15 | CT_ITS ---
EXAMINATION: CT brain wo con DATE: 03/15/2022 17:49 INDICATION: AMS, confusion . TECHNIQUE: Computed tomography (CT) of the head was performed without intravenous contrast. The mA wa s adjusted according to patient size. Iterative reconstruction technique was employed. The dose-lengt h product was 605.33 mGy-cm. COMPARISON: 02/07/2019 FINDINGS: No acute intracranial hemorrhage or extra-axial fluid collection. No hydrocephalus, mass, or herniation. No acute ischemic infarct. Unremarkable dural venous sinus attenuation. No acute osseous abnormality. The aerated spaces are clear. Mild atrophy and chronic white matter change. Atherosclerotic intracranial calcification. Bilateral l ens replacements. IMPRESSION: No acute intracranial process. Reviewed, dictated and finalized at location K. NICAL IMPLEMENTATION LEAD
--- NOTE | ~2022-03-15 | XR_ITS ---
EXAMINATION: XR chest 1V portable INDICATION: Shortness of breath, pneumonia TECHNIQUE: Portable AP chest at 0534 hours COMPARISON: 03/17/2022 FINDINGS: Diffuse opacities persist throughout all lung zones with interval worsening. There is no pn eumothorax. Cardiomegaly is noted. There appears to be a small left pleural effusion. IMPRESSION: 1. Diffuse lung disease with interval worsening, consistent with pneumonia and/or pulmonary edema. 2. Cardiomegaly. Reviewed, dictated and finalized at location B. ATOR DISPATCHER IMPRESSION: 1. Diffuse lung disease with interval worsening, consistent with pneumonia and/ or pulmonary edema. 2. Cardiomegaly.
--- NOTE | ~2022-03-15 | XR_ITS ---
EXAMINATION: XR lumbar puncture diagnostic DATE: 03/19/2022 14:44 INDICATION: Altered mental status. Concern for encephalitis/meningitis TECHNIQUE: Prior lumbar spine MRI dated 12/15/[address] abdomen and pelvis dated 01/27/2022 were revie wed. The tip of the conus was noted to be at the level of T12-L1. Given the severe facet osteoarthrit is and hypertrophic change along the spinous processes in the mid to lower lumbar spine and the sever e central canal stenosis at L3-L4 and L4-L5 was elected to access the central canal at the level of L 1-L2. The procedure including the risks and benefits was discussed with the patient's . Risks dis cussed included spinal headache, cerebrospinal fluid leak, bleeding, and infection. She understood th e risks and agreed to proceed. A timeout was performed to verify the patient's name, date of , and procedure to be performed. The skin overlying the L1-L2 level was prepped and draped in usual sterile fashion. Subcutaneous 1% lidocaine was used for local anesthesia. A 20 gauge spinal needle was advanced under fluoroscopic guidance. The needle was removed and the entry site was cleaned and d ressed. There were no immediate complications. A total of 2 AP fluoroscopic image(s) 1 lateral radio graph were obtained. The amount of fluoroscopy time used during this procedure was 0.2 minutes. The p atient was taken to return to the floor in the company of his nurse. FINDINGS: Real-time fluoroscopy demonstrates the needle at the L1-L2 level. Opening pressure was 13 c m water. (Normal range is variably defined as 6-20 cm water and up to 25 cm water in obese patients. Pressure >25 cm water is one of the modified Dandy criteria for idiopathic intracranial hypertension) . 14 mL of clear, colorless fluid was collected in 4 tubes. IMPRESSION: 1. Successful fluoro-guided lumbar puncture. Reviewed, dictated and finalized at location A. OR RUBY DEVELOPER
--- NOTE | ~2022-03-15 | XR_ITS ---
EXAMINATION: XR chest 1V portable DATE: 03/17/2022 06:20 INDICATION: Hypoxia TECHNIQUE: frontal view of the chest was obtained. COMPARISON: Chest radiograph dated 03/16/2022 FINDINGS: Airspace opacities in the left mid to lower lung zone in the right midlung zone. No pneumothorax or d efinitive pleural effusion. Mild cardiomegaly. Moderate degenerative skeletal changes in the spine an d both shoulders. Chronic midthoracic compression fracture. IMPRESSION: 1. Airspace opacities in the left mid to lower and right mid lung zones most consistent with multifoc al pneumonia with differential including asymmetric pulmonary edema. 2. Cardiomegaly. Reviewed, dictated and finalized at location A. FABRIC CUTTER IMPRESSION: 1. Airspace opacities in the left mid to lower and right mid lung zones most co nsistent with multifocal pneumonia with differential including asymmetric pulmo nary edema. 2. Cardiomegaly.
--- NOTE | ~2022-03-15 | XR_ITS ---
EXAMINATION: XR chest 2V DATE: 03/21/2022 09:32 INDICATION: Pneumonia and shortness of breath TECHNIQUE: AP and lateral views of the chest are obtained. COMPARISON: 03/19/2022 FINDINGS: Previously described airspace opacities on the right have nearly completely resolved with m inimal persistent airspace opacity seen in the right lung base. Diffuse opacities of the left lung martinez ve improved but persist in the mid and lower lung zones. There are small pleural effusions. No pneumo thorax is identified. The cardiomediastinal silhouette is normal. There is severe thoracic spondylosi s. IMPRESSION: 1. Diffuse lung disease with interval improvement, consistent with resolving pneumonia and/or pulmona ry edema. 2. Small pleural effusions. Reviewed, dictated and finalized at location A. ING PRINTER IMPRESSION: 1. Diffuse lung disease with interval improvement, consistent with resolving pn eumonia and/or pulmonary edema. 2. Small pleural effusions.
--- NOTE | ~2022-03-15 | XR_ITS ---
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 RESULT: Lines, tubes, and devices: None. Lungs and pleura: Ill-defined subsegmental and peripheral opacities in the left mid and lower lung. Mild left costophrenic angle blunting. Senescent change. Cardiomediastinal silhouette: Stable. Other: No acute osseous or upper abdominal finding. IMPRESSION: Findings suspicious for left lower lobe pneumonia. Reviewed, dictated and finalized at location K. WORKER
--- NOTE | ~2022-03-15 | CT_ITS ---
EXAMINATION: CTA brain carotid DATE: 03/18/2022 14:14 INDICATION: Aphasia. Altered mental status. TECHNIQUE: Computed tomographic angiography (CTA) of the head was performed without and with 100 mL O mnipaque-350 intravenous contrast. CTA of the neck was performed with intravenous contrast. Automated exposure control and iterative reconstruction technique were employed. The dose-length product was 2 126.98 mGy-cm. Maximum intensity projection and volume rendered 3D-reconstructions were created by britney quigley technologist on a separate workstation. COMPARISON: Head CT 03/15/2022, brain MRI 03/17/2022 FINDINGS: HEAD CTA: There are scattered areas of low attenuation in the cerebral white matter. There is no intr acranial hemorrhage, acute infarction, or abnormal intracranial mass lesion. The ventricles are bj l in size. There are likely changes of ocular lens replacement surgeries. The mastoid air cells are n ormal. There is mild mucosal thickening in the paranasal sinuses. There is cerumen in left external a uditory canal. Left vertebral artery is dominant. There is no significant stenosis of basilar artery or the posterior cerebral arteries. There is no significant stenosis of the intracranial internal car otid arteries or anterior or middle cerebral arteries. Anterior communicating artery is normal. Poste rior communicating arteries are not identified. There is no aneurysm. NECK CTA: There is mild emphysema. There are airspace opacities in left upper lobe, consistent with p neumonia. There are no pathologically enlarged lymph nodes. There is no significant stenosis of the v ertebral arteries. There is plaque in the proximal internal carotid arteries. There is 0% stenosis of the proximal right internal carotid artery relative to normal distal artery lumen diameter (NASCET c riteria). There is 0% stenosis of the proximal left internal carotid artery relative to normal distal artery lumen diameter. There is moderate cervical spondylosis. IMPRESSION: 1. Mild nonspecific cerebral white matter disease, which likely represents chronic small vessel ische jsaon disease. 2. No aneurysm or significant intracranial arterial stenosis. 3. 0% stenosis of the proximal internal carotid arteries relative to normal distal artery lumen diame ters (NASCET criteria). 4. Left upper lobe pneumonia. 5. Mild emphysema. Reviewed, dictated and finalized at location A. ERY INTERN IMPRESSION: 1. Mild nonspecific cerebral white matter disease, which likely represents chronic care nurse julian small vessel ischemic disease. 2. No aneurysm or significant intracranial arterial stenosis. 3. 0% stenosis of the proximal internal carotid arteries relative to normal dis giuseppe artery lumen diameters (NASCET criteria). 4. Left upper lobe pneumonia. 5. Mild emphysema.
--- NOTE | 2022-03-15 15:16 | ECG_ITS ---
Measurements Intervals [place] Rate: 57 P: -51 [place]: 160 QRS: 32 QRSD: 177 T: 35 QT: 468 QTc: 456 Interpretive Statements SINUS BRADYCARDIA BORDERLINE AV CONDUCTION DELAY RIGHT BUNDLE BRANCH BLOCK MINIMAL Q WAVES- INFERIOR LEADS ABNORMAL ECG COMPARED TO ECG 06/22/2019 05:31:24 NO SIGNIFICANT CHANGES Electronically Signed On 03-15-2022 17:32:57 DIRECTOR EXECUTIVE COMMUNICATIONS by Eric Sanders D.O.
[2022-03-15 15:26] LABS: Basophils Percent Auto 0.1 % (0.2-1.2); Eosinophils Percent Auto 0.1 % (0-4.4); Hemoglobin 10.8 g/dL (14.0-18.0); Immature Granulocyte Absolute 0.15 K/mm3 (0.00-0.031); Immature Granulocyte Percent A 1.3 % (0-0.5); Immature Platelet Fraction Pct 7.8 % (0.9-11.2); Lymphocytes Absolute Auto 0.23 K/mm3 (0.9-3.2); Lymphocytes Percent Auto 2.1 % (18.3-44.2); Mean Corpuscular HGB Conc 31.8 g/dl (32-36); Mean Corpuscular Volume 91.4 fl (80-100); Monocytes Absolute Auto 0.7 K/mm3 (0.1-0.6); Monocytes Percent Auto 5.9 % (2.6-8.5); Neutrophils Absolute Auto 10.1 K/mm3 (1.3-6.7); Neutrophils Percent Auto 90.5 % (45.5-73.1); Platelet Count Result 124 k/mm3 (150-375); Red Blood Count 3.72 M/mm3 (4.6-6.20); Red Cell Distribution Width 13.9 % (11.5-14.5); White Blood Count 11.2 K/mm3 (4.5-10.0)
[2022-03-15 15:35] LABS: Alanine Aminotransferase 18 U/L (6-50); Albumin Level 3.4 g/dL (3.5-5.1); Alkaline Phosphatase 90 U/L (38-126); Anion Gap 9 mmol/L (8-16); Aspartate Amino Transferase 22 U/L (17-59); Blood Urea Nitrogen 23 mg/dL (9-20); Calcium 8.6 mg/dL (8.4-10.2); Carbon Dioxide 27 mmol/L (22-30); Chloride 100 mmol/L (98-107); Estimated CRCL calculation 36 ml/min; Estimated Glomerular Filt Rate 39; Glucose 93 mg/dL (65-110); Potassium 3.6 mmol/L (3.4-5.0); Sodium 136 mmol/L (137-145)
[2022-03-15 15:39] LABS: Ovalocytes 1+ (NORMAL); Platelet Estimate Decreased (Adequate); Schistocytes None Seen (NORMAL)
--- NOTE | 2022-03-15 16:28 | ED.WEAKNESS ---
HPI - Weakness General Chief complaint: Weakness <CATHI Aguilar Last Filed: 03/15/22 18:45> Stated complaint: increased weakness x 1-2 days <CATHI Aguilar Last Filed: 03/15/22 18:45> Time Seen by Provider: 03/15/22 16:24 <CATHI Aguilar Last Filed: 03/15/22 18:45> Source: patient <CATHI Aguilar Last Filed: 03/15/22 18:45> Mode of arrival: EMS <CATHI Aguilar Last Filed: 03/15/22 18:45> Limitations: no limitations <CATHI Aguilar Last Filed: 03/15/22 18:45> History of Present Illness HPI Narrative: Patient is a 76-year-old male who presents the ED via EMS with report of weakness. Patient reports he has felt unwell for the last several days. He reports having generalized weakness, fatigue, fevers, chills, productive cough, decreased appetite, R sided chest pain, occasional SOB. Today, his blood pressure was noted to be 76 over 40s at home. EMS was then called. Upon EMS arrival, BP was 90s systolic. Per patient's at bedside, patient is somewhat confused and having trouble finding words as well. Patient denies have any focal weakness. Denies nausea, vomiting, abdominal pain. <CATHI Aguilar Last Filed: 03/15/22 18:45> Related Data Home medications: Home Medications Medication Instructions Recorded Confirmed colestipol 1 gram tablet 2 g PO BID 06/20/19 03/26/22 famotidine 40 mg tablet 40 mg PO BID 06/20/19 03/26/22 modafinil 200 mg tablet 300 mg PO QAM 03/15/22 03/26/22 omega-3 fatty acids 1,000 mg 1,000 mg PO BID 03/15/22 03/26/22 capsule testosterone 20.25 mg/1.25 gram 1.5 pump topical DAILY 03/15/22 03/26/22 (1.62 %) transdermal gel pump <CATHI Aguliar Last Filed: 03/15/22 18:45> Allergies/Adverse reactions: Allergies Allergy/AdvReac Type Severity Reaction Status Date / Time ticagrelor [From Brilinta] Allergy Anxiety Verified 03/26/22 08:20 <CATHI Aguilar Last Filed: 03/15/22 18:45> Review of Systems Review of Systems: CONSTITUTIONAL: Reports generalized weakness, fever, chills, decreased appetite. CARDIOVASCULAR: Reports right-sided chest pain. RESPIRATORY: Reports cough and dyspnea. GASTROINTESTINAL: Denies abdominal pain, nausea, vomiting. NEUROLOGIC: Denies headache, numbness, or focal weakness. <CATHI Aguilar Last Filed: 03/15/22 18:45> All systems reviewed & are unremarkable except as noted in HPI and below <CATHI Aguilar Last Filed: 03/15/22 18:45> PMFSH Past Medical History Medical History: Medical History Abdominal aortic aneurysm, without rupture Being monitored. Most recent measurement was 5.5 centimeters per patient report. Atherosclerotic heart disease of [place] coronary artery with other forms of angina pectoris Chronic back pain Essential (primary) hypertension Gastro-esophageal reflux disease without esophagitis Normal colonoscopy 08/24 Obstructive sleep apnea (adult) (pediatric) Pure hypercholesterolemia, unspecified Tobacco dependence <CATHI Aguilar Last Filed: 03/15/22 18:45> Surgical History Surgical History: Surgical History History of cholecystectomy History of foot surgery Left 2005; Right 2010 History of right nephrectomy 2010 History of rotator cuff surgery Left Stented coronary artery <CATHI Aguilar Last Filed: 03/15/22 18:45> Family History Family History: Family History Father Hypertension Acute myocardial infarction Sibling Family history of malignant neoplasm Family history of heart disease in male family member before age 55 <CATHI Aguilar Last Filed: 03/15/22 18:45> Social History Social History: Social His
[2022-03-15 16:59] LABS: Appearance Urine Slightly Cloudy (Clear); Bilirubin Urine 3+ (Negative); Blood Urine Negative (Negative); Color Urine Yellow (Yellow); Glucose Urine UA Negative (Negative); Ketones Urine Negative (Negative); Leukocyte Esterase Ur Negative LEU/UL (Negative); Nitrate Urine Negative (Negative); Protein Urine Negative (Negative); Specific Grav Ur 1.015 (1.001-1.035); Urobilinogen Urine 0.2 mg/dL (<2.0)
[2022-03-15 17:05] LABS: Mucus Urine Rare /lpf; RBC Urine 0-2 /hpf (0-2); Squamous Epithelial Cell Urine Moderate /hpf (Few); WBC Urine 0-3 /hpf
[2022-03-15 17:08] LABS: Lactic Acid Reflex 1.5 mmol/L (0.7-2.0)
[2022-03-15 17:12] LABS: Add Urine Microscopic? YES
[2022-03-15 17:30] LABS: Influenza A QL RT-PCR Negative (Negative); Influenza B QL RT-PCR Negative (Negative); SARS-CoV-2 RNA PCR Negative
[2022-03-15 18:11] LABS: Alveolar/Arterial O2 Gradient 45.7 mmHg; Base Excess ABG 2.8 mEq/l (+/-2.0); Carboxyhemoglobin 3.5 % THb (0-2.0); Fractional Inspired Oxygen 21 %; HCO3 ABG 26.8 mEq/l (22.0-26.0); Methemoglobin ABG 0.3 %THb (0-1.5); Oxygen Content ABG 14.5 %vol (16.0-22.0); PCO2 ABG 39.3 mmHg (35.0-45.0); PO2 FiO2 Ratio Arterial Blood 2.71 %; Reduced Hemoglobin 9.7 %THb (0-5.0); Total Hemoglobin 11.9 g/dL (12.0-18.0); pH ABG 7.452 (7.350-7.450)
[2022-03-15 18:12] LABS: Device ROOM AIR; Modified Allen's Test Pass; Oxyhemoglobin 86.5 % THb (90.0-100.0); Site Drawn RIGHT RADIAL
[2022-03-15] MEDS: SODIUM CHLORIDE 0.9% IV 1,000 ML 999 ML IV CONT (18:21)
[2022-03-15 18:50] LABS: Troponin I < 0.012 ng/mL (0.000-0.034)
--- NOTE | 2022-03-15 19:30 | PM.IMHP ---
H&P: HPI History of Present Illness Date/Time: 03/15/22 19:30 Chief Complaint: Weakness. Narrative: This is a pleasant 76-year-old male smoker with history of coronary artery disease, hypertension, abdominal aortic aneurysm, and sleep apnea who presented to the emergency department via EMS from home for evaluation of weakness. He is alert and oriented but seems to be mildly confused and as such some of the following history is supplemented via a review of his electronic medical records as well as discussions with his who was at bedside. He has not been feeling well since Wednesday with symptoms to include subjective fever, cough productive of mostly clear phlegm, mild shortness of breath, decreased appetite with poor oral intake, fatigue, progressive weakness, and myalgias. He has been taking Tylenol at home for his symptoms. notes today that he seemed to be little confused and more weak. This morning he was unsteady on his feet so his checked his blood pressure and EMS was summoned after was found to be 76/40. His blood pressure was 100/52 on arrival to the ER and it has improved with a liter of IV fluids. He has been afebrile since arrival. Workup was significant for white blood cell count of 11.2, normocytic anemia with a hemoglobin and hematocrit a bit lower than baseline, and elevated BUN and creatinine. Brain CT done for reports of confusion showed no acute intracranial process. Chest x-ray showed findings of left lower lobe pneumonia and he is being admitted in this setting for IV antibiotics. [facility] Past Medical History Medical History (Updated 03/15/22 @ 23:30 by Sherry Rodriguez PA-C) Abdominal aortic aneurysm, without rupture Being monitored. Most recent measurement was 5.5 centimeters per patient report. Atherosclerotic heart disease of [place] coronary artery with other forms of angina pectoris Chronic back pain Essential (primary) hypertension Gastro-esophageal reflux disease without esophagitis Normal colonoscopy 08/24 Obstructive sleep apnea (adult) (pediatric) Pure hypercholesterolemia, unspecified Tobacco dependence Surgical History Surgical History History of cholecystectomy History of foot surgery Left 2005; Right 2010 History of right nephrectomy 2009 History of rotator cuff surgery Left Stented coronary artery Family History Family History Father Hypertension Acute myocardial infarction Sibling Family history of malignant neoplasm Family history of heart disease in male family member before age 55 Social History Social History (Updated 03/15/22 @ 23:24 by Sherry Rodriguez PA-C) Social History: Surrogate medical decision maker: Lida Márquez, spouse. Code status: Full code. Smoking packs per day: 2 Smoking cigarettes per day: 40.0 Years smoked: 60 Smoking pack-years: 120.00 Smoking status: Current every day smoker Tobacco type: cigarettes Second hand tobacco smoke exposure: Yes Alcohol intake: never Substance use: never Substance use type: marijuana Has the Lack of Transportation Kept You From Medical Appointments or From Getting Medications?: No Within the Past 12 Months, Were You Worried Whether Your Food Would Run Out Before You Got Money to Buy More?: Never True What is Your Housing Situation Today?: I Have Housing Are You Worried That in the Next 2 Months, You May Not Have Your Own Housing to Live In?: No Do You Have Trouble Paying Your Heating Or Electricity Bill?: No Do You Have Trouble Paying For Medicines?: No Are You Currently Unemployed and Looking for Work?: No Highest Level of Education Completed: High School Diploma/GED Do You Have Trouble With Childcare or the Care of a Family Member?: No Additional living arrangements comments: The patient lives with his in [place]. Additional occupation/education comments: Re
--- NOTE | 2022-03-15 20:01 | PC.NURSE ---
spoke with floor for patient report. Attempting new IV access prior to going to floor.
--- NOTE | 2022-03-15 23:40 | ADMGEN ---
This patient, Ivan Márquez, was admitted to [facility] Surg Room 307-01. Patient/family oriented to hospital policies and general routines including ID bracelet, bed and alarms, visiting hours, pain management, procedures, bathroom and other care routines, personal items, smoking policy, room service/diet, and visiting hours. Information on how to activate the Rapid Response Team has been discussed. Patient/Family are encouraged to report perceived risks to care and to ask questions if they do not understand what they are told or what they should do.
[2022-03-16] VITALS (16 sets, daily range): BP systolic 142–212; BP diastolic 70–128; PULSE 72–93; RESP 18–24; TEMP 36.7–39.6; O2SAT 90–96; BMI 27.9
[2022-03-16] MEDS: SODIUM CHLORIDE 0.9% IV 1,000 ML 100 ML IV CONT (00:15)
[2022-03-16] MEDS: ACETAMINOPHEN 500 MG TABLET 1000 MG PO (06:34)
[2022-03-16 06:37] LABS: Hematocrit 33.1 % (42.0-52.0); Hemoglobin 10.5 g/dL (14.0-18.0); Immature Platelet Fraction Pct 8.4 % (0.9-11.2); Mean Corpuscular HGB Conc 31.7 g/dl (32-36); Mean Corpuscular Hemoglobin 29.7 pg (26-34); Mean Corpuscular Volume 93.5 fl (80-100); Mean Platelet Volume 11.9 fl (7.4-10.4); Platelet Count Result 122 k/mm3 (150-375); Red Blood Count 3.54 M/mm3 (4.6-6.20); White Blood Count 7.2 K/mm3 (4.5-10.0)
[2022-03-16 06:38] LABS: Alanine Aminotransferase 17 U/L (6-50); Albumin Level 3.1 g/dL (3.5-5.1); Alkaline Phosphatase 79 U/L (38-126); Anion Gap 10 mmol/L (8-16); Aspartate Amino Transferase 26 U/L (17-59); Bilirubin,Total 0.7 mg/dL (0.2-1.3); Blood Urea Nitrogen 20 mg/dL (9-20); Calcium 8.3 mg/dL (8.4-10.2); Carbon Dioxide 26 mmol/L (22-30); Chloride 97 mmol/L (98-107); Estimated CRCL calculation 41 ml/min; Estimated Glomerular Filt Rate 45; Glucose 97 mg/dL (65-110); Potassium 3.5 mmol/L (3.4-5.0); Sodium 133 mmol/L (137-145)
[2022-03-16 06:48] LABS: Iron 20 ug/dL (49-181)
[2022-03-16 06:58] LABS: Percent Iron Saturation 11 % (20-50)
[2022-03-16 07:17] LABS: Thyroid Stimulating Hormone Reflex 0.285 uIU/mL (0.465-4.68)
[2022-03-16 07:40] LABS: Folic Acid 14.9 ng/mL (2.76->20)
[2022-03-16 08:05] LABS: Ferritin > 2000.00 ng/mL (11.1-264)
[2022-03-16 08:10] LABS: Free T4 Free Thyroxine Reflex 1.46 ng/dL (0.78-2.19)
[2022-03-16] MEDS: buPROPion HCL SR (12 HR) 150 MG TAB PO (09:01)
[2022-03-16] MEDS: OMEGA 3 POLYUNSAT FATTY ACIDS 1 GM CAP PO ×2 (09:01→16:59)
[2022-03-16] MEDS: BUDESONIDE 3 MG CAP.SR.24H 9 MG PO (09:01)
[2022-03-16] MEDS: GABAPENTIN 300 MG CAPSULE 600 MG PO ×3 (09:01→16:59)
[2022-03-16] MEDS: FAMOTIDINE 20 MG TABLET 40 MG PO (09:01)
[2022-03-16] MEDS: COLESTIPOL HCL 1 GM TABLET 2 GM PO (09:01)
[2022-03-16] MEDS: ENOXAPARIN 40 MG/0.4 ML SYRINGE SUB-Q (09:05)
--- NOTE | 2022-03-16 12:07 | PM.IMPN ---
Progress Note: A&P Assessment and Plan (1) Left lower lobe pneumonia: Qualifiers: Pneumonia type: due to unspecified organism Qualified Code(s): J18.9 - Pneumonia, unspecified organism Code(s): J18.9 - Pneumonia, unspecified organism Status: Acute Assessment and Plan: Patient presented to the emergency room with complaints of increasing weakness. ABG shows PaO2 of 57 an oxyhemoglobin of 86% on room air, WBC 11.2 with left shift, temp 100.8? F max, and chest x-ray consistent with left lower lobe infiltrates. Patient treated with Rocephin 1 g IV and azithromycin 500 mg IV in the ED. Continue IV antibiotics as above. Add DuoNebs scheduled. 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 He may need initiation of IV steroids however we will trial short-acting bronchodilators. P.r.n. acetaminophen for fevers. Influenza a and B negative, SARS-CoV-2 negative, urine Legionella, mycoplasma, and pneumococcal antigen all pending Sputum pending (2) Acute metabolic encephalopathy: Code(s): G93.41 - Metabolic encephalopathy Status: Acute Assessment and Plan: Secondary to acute infection, hypoxemia, and acute dehydration. Reoriented as needed. Continue management with IV fluids and IV antibiotics as above. B12 945 and within normal limits, folate 14.9 and normal, TSH 0.285 with normal free T4 1.46 and total T3 0.60 unlikely cause of acute confusion. Head CT on admission is negative for acute pathology. If no improvement at mental status will obtain MRI brain for further evaluation although no focal deficits are noted at this time (3) Elevated ferritin: Code(s): R79.89 - Other specified abnormal findings of blood chemistry Status: Acute Assessment and Plan: Ferritin level greater than 2000. Transferrin low 114, serum iron 20, TIBC low 175 and iron saturation 11%. Hemoglobin 10.5. Patient is noted to have discoloration to upper chest that is longstanding. Ferritin is an acute phase reactant and may be elevated secondary to acute infection however given that this is a severely elevated we will proceed with hemochromatosis workup Will check hemochromatosis PCR. Echocardiogram ordered for evaluation of cardiomegaly and dyspnea as well. (4) Dehydration: Code(s): E86.0 - Dehydration Status: Acute Assessment and Plan: Upon admission patient noted to have a BUN 23, creatinine 1.7, GFR 39. His renal function was within normal limits in January of this year. Continue IV fluids. Hold furosemide. Monitor strict intake and output (5) Renal insufficiency: Code(s): N28.9 - Disorder of kidney and ureter, unspecified Status: Acute Assessment and Plan: Secondary to acute infection and dehydration as above. Continue IV fluids and monitor renal function daily. Avoid nephrotoxic agents. Hold losartan and furosemide (6) Tobacco dependence: Code(s): F17.200 - Nicotine dependence, unspecified, uncomplicated Status: Chronic Assessment and Plan: Patient is a long-term smoker with 122 pack-year smoking history and is still a current everyday smoker. Patient is confused at this time but smoking cessation counseling to be done prior to discharge when patient returns to baseline cognition. (7) Essential (primary) hypertension: Code(s): I10 - Essential (primary) hypertension Status: Chronic Assessment and Plan: Chronic, stable. A BP 148/73, HR 84. Holding losartan and furosemide due to GREGORIO Continue Imdur. (8) Generalized weakness: Code(s): R53.1 - Weakness Status: Acute Assessment and Plan: Secondary to acute infection. PT OT consulted. (9) Iron deficiency anemia: Qualifiers: Iron deficiency anemia type: unspecified iron deficiency Qualified Code(s): D50.9 - Iron deficiency anemia, unspecified Code(s):
[2022-03-16 12:46] LABS: Transferrin 114 mg/dL (206-381)
[2022-03-16 12:49] LABS: NT Pro B Type Natriuretic Pept 4160 pg/mL (5-100)
[2022-03-16] MEDS: oxyCODONE/ACETAMINOPHEN (*CRX) 10-325 MG TABLET 1 TAB PO (17:03)
[2022-03-16] MEDS: ALBUTEROL SULFATE NEB 2.5 MG/3 ML INH INHALATION (20:35)
[2022-03-16] MEDS: IPRATROPIUM BR 0.02% INH SOLN 0.5 MG/2.5 ML VIAL INHALATION (20:36)
--- NOTE | 2022-03-16 21:17 | ECG_ITS ---
Measurements Intervals [place] Rate: 81 P: -35 TX: 162 QRS: 9 QRSD: 175 T: -3 QT: 389 QTc: 454 Interpretive Statements SINUS RHYTHM ATRIAL PREMATURE COMPLEX RIGHT BUNDLE BRANCH BLOCK MINIMAL Q WAVES- INFERIOR LEADS BASELINE ARTIFACT- II, III, AVR, AVL,A VF ABNORMAL ECG COMPARED TO ECG 03/15/2022 15:12:38 SINUS RHYTHM NOW PRESENT Electronically Signed On 03-17-2022 6:49:06 PRE BILLING SPECIALIST by Eric Sanders D.O.
[2022-03-16 21:24] LABS: Alveolar/Arterial O2 Gradient 483.6 mmHg; Base Excess ABG -0.4 mEq/l (+/-2.0); Carboxyhemoglobin 0.3 % THb (0-2.0); Fractional Inspired Oxygen 100 %; HCO3 ABG 22.7 mEq/l (22.0-26.0); Methemoglobin ABG 0.3 %THb (0-1.5); Modified Allen's Test Pass; Oxygen Content ABG 14.9 %vol (16.0-22.0); Oxygen Saturation ABG 99.4 % (95.0-100.0); Oxyhemoglobin 97.8 % THb (90.0-100.0); PCO2 ABG 31.7 mmHg (35.0-45.0); PO2 ABG 197.7 mmHg (80.0-100.0); PO2 FiO2 Ratio Arterial Blood 1.98 %; Reduced Hemoglobin 1.6 %THb (0-5.0); Site Drawn LEFT RADIAL; Total Hemoglobin 10.5 g/dL (12.0-18.0); pH ABG 7.473 (7.350-7.450)
[2022-03-16 21:25] LABS: Device NON-REBREATHER MASK
--- NOTE | 2022-03-16 21:30 | P.PNCROSS_ITS ---
Event Note Event Note Event Note: Rapid response called at approximately 21:10. Patient had just finished a nebul izer treatment and he appeared short of breath and was reportedly hypoxic into the 70s however nurse tells me that his SpO2 was in the 70s on a finger on his right hand and in the 90s on a finger on his left hand. He was placed on a non- rebreather and stat ABG and chest x-ray were ordered. ABG showed pH of 7.473, pCO2 31.7, PO2 197.7, and bicarb 22.7. Chest x-ray showed pulmonary opacities reflecting pneumonia or asymmetric edema and a small to moderate left pleural effusion. He had been receiving IV fluids in those were discontinued and he was given IV Lasix 20 milligrams x 1. Shortly thereafter the patient spiked a temperature to above 103? Fahrenheit and he became increasingly confused. He was given acetaminophen 1000 milligrams IV times once and cooling packs were placed with improvement in his temperature is and somewhat in his mentation. No gross focal deficits were noted on exam. He was alert and oriented initially but seemed to be confused with the fever. Generally weak without focal findings. He was tachycardic. Lung sounds were coarse throughout and diminished at the left base. No significant edema noted. Stat labs were ordered and his initial troponin was only mildly elevated. Lactic acid level was within normal limits. For now will continue to monitor neurologic checks closely and vital signs. Repeat blood cultures have been ordered and are pending. Continue antibiotics as scheduled. Critical Care Time Critical Care Time: Yes Total Critical Care Time: 35 Attestation: Due to a high probability of clinically significant, life threatening deterioration, the patient required my highest level of preparedness to intervene emergently and I personally spent this critical care time directly and personally managing the patient. This critical care time included obtaining a history; examining the patient; pulse oximetry; ordering and review of studies; arranging urgent treatment with development of a management plan; evaluation of patient's response to treatment; frequent reassessment; and discussions with other providers. It was exclusive of separately billable procedures and treating other patients and teaching time. Please see Assessment and Plan section and the rest of the note for further information on patient assessment and treatment
[2022-03-16 21:48] LABS: Hematocrit 32.4 % (42.0-52.0); Hemoglobin 10.4 g/dL (14.0-18.0); Mean Corpuscular HGB Conc 32.1 g/dl (32-36); Mean Corpuscular Hemoglobin 29.1 pg (26-34); Mean Corpuscular Volume 90.8 fl (80-100); Mean Platelet Volume 11.2 fl (7.4-10.4); Platelet Count Result 114 k/mm3 (150-375); Red Blood Count 3.57 M/mm3 (4.6-6.20); Red Cell Distribution Width 14.3 % (11.5-14.5); White Blood Count 4.2 K/mm3 (4.5-10.0)
[2022-03-16] MEDS: FUROSEMIDE INJ 40 MG/4 ML VIAL (21:53)
[2022-03-16 22:03] LABS: Anion Gap 9 mmol/L (8-16); Blood Urea Nitrogen 20 mg/dL (9-20); Calcium 8.2 mg/dL (8.4-10.2); Carbon Dioxide 27 mmol/L (22-30); Chloride 96 mmol/L (98-107); Estimated CRCL calculation 50 ml/min; Estimated Glomerular Filt Rate 59; Glucose 104 mg/dL (65-110); Lactic Acid Reflex 1.2 mmol/L (0.7-2.0); Potassium 3.5 mmol/L (3.4-5.0); Sodium 132 mmol/L (137-145)
[2022-03-16 22:21] LABS: NT Pro B Type Natriuretic Pept 5540 pg/mL (5-100); Troponin I 0.042 ng/mL (0.000-0.034)
[2022-03-16] MEDS: FUROSEMIDE INJ 40 MG/4 ML VIAL 20 MG IV PUSH (22:52)
[2022-03-16 22:55] LABS: Creatine Kinase 121 U/L (55-170); Lactate Dehydrogenase 173 U/L (120-246)
[2022-03-16 23:02] LABS: Transferrin 102 mg/dL (206-381)
[2022-03-16 23:32] LABS: CRP 37.4 mg/dL (<1.0)
[2022-03-17] VITALS (21 sets, daily range): BP systolic 132–176; BP diastolic 60–119; PULSE 66–89; RESP 12–22; TEMP 36.6–37.9; O2SAT 89–99
--- NOTE | 2022-03-17 | ECHO_ITS ---
Patient Info Name: Ivan Márquez Age: 76 years : 1945 Gender: Male Ht: 72 in Wt: 205 lbs BSA: 2.19 m2 HR: 82 bpm BP: 176 / 82 mmHg Technical Quality: Fair Exam Date: 03/17/2022 10:22 AM Exam Location: [facility] Pulmonary Patient Status: Inpatient Admit Date: 03/16/2022 Staff Ordering Physician: Luz Craven APRN Floor Broker: Nayely Sheldon RDCS Attending Provider: Vishal Garcia MD Referring Physician: Merissa URBINA; Exam Type: CA echo doppler color flow Study Info Indications R06.00 - Dyspnea, unspecified Complete two-dimensional, color flow and Doppler transthoracic echocardiogram is performed. Summary 1. Complete two-dimensional, color flow and Doppler transthoracic echocardiogram is performed. 2. Left ventricular chamber dimension is normal. 3. Left ventricular systolic function is normal, estimated at 55-60%. 4. Left ventricular septal wall motion is abnormal with septal motion related to bundle branch block. 5. The left ventricular diastolic function is grade I diastolic dysfunction. 6. E/e' 9 is minimally elevated. 7. Left atrial chamber dimension is mildly enlarged. 8. There is trace mitral valve regurgitation. Left Ventricle E/e' 9 is minimally elevated. Left ventricular chamber dimension is normal. Left ventricular systolic function is normal, estimated at 55-60%. Left ventricular septal wall motion is abnormal with septal motion related to bundle branch block. The left ventricular diastolic function is grade I diastolic dysfunction. Right Ventricle Right ventricular systolic function is normal and with normal TAPSE 2.2 cm. Right ventricular chamber dimension is normal. Left Atria Left atrial chamber dimension is mildly enlarged. Right Atria Right atrial chamber dimension is normal. Aortic Valve The aortic valve is trileaflet. There is no aortic valve stenosis. There is no aortic valve regurgitation. Pulmonic Valve There is no pulmonic regurgitation. Mitral Valve There is no mitral valve stenosis. There is trace mitral valve regurgitation. Tricuspid Valve There is no tricuspid valve regurgitation. Pericardium/Pleural There is no pericardial effusion. Inferior Vena Cava Normal inferior vena cava with >50% collapse upon inspiration consistent with normal right atrial pressure, 5 mmHg. Aorta The aortic root size at the sinus of Valsalva is normal. Left Ventricular Outflow Tract Name Value Normal LVOT 2D LVOT Diameter 2.0 cm LVOT Doppler LVOT Peak Gradient 5 mmHg LVOT Mean Gradient 3 mmHg LVOT VTI 20 cm LVOT VTI/AV VTI Ratio 0.7 LVOT Stroke Volume 63 ml LVOT CO 5.0 l/min LVOT CI 2.3 l/min/m2 Mitral Valve Name Value Normal DARIEL Hammonds
[2022-03-17 00:20] LABS: Ferritin > 2000.00 ng/mL (11.1-264)
--- NOTE | 2022-03-17 02:17 | PC.NURSE ---
Pt had rapid response called this shift. Pt was desaturating and not making sense when he was talking. Pt had a 102.8 fever that spiked to 103.3. Pt BP was elevated. Pt has elevated troponin of 0.042 that increased to 0.057, provider notified. Provider ordered to have a corrigan placed. Pt seems less agitated since having corrigan placed. Pt fever is coming down. Pt is unable to participate and contribute in plan of care. Pt has no complaints at this time. Will continue to monitor.
[2022-03-17 02:22] LABS: Troponin I 0.057 ng/mL (0.000-0.034)
[2022-03-17] MEDS: IPRATROPIUM BR 0.02% INH SOLN 0.5 MG/2.5 ML VIAL INHALATION ×4 (02:38→19:27)
[2022-03-17] MEDS: ALBUTEROL SULFATE NEB 2.5 MG/3 ML INH INHALATION ×4 (02:38→19:27)
[2022-03-17 05:56] LABS: Anion Gap 8 mmol/L (8-16); Blood Urea Nitrogen 19 mg/dL (9-20); Calcium 8.3 mg/dL (8.4-10.2); Carbon Dioxide 27 mmol/L (22-30); Chloride 98 mmol/L (98-107); Estimated CRCL calculation 50 ml/min; Estimated Glomerular Filt Rate 59; Glucose 100 mg/dL (65-110); Potassium 3.5 mmol/L (3.4-5.0); Sodium 133 mmol/L (137-145)
[2022-03-17 05:57] LABS: Alanine Aminotransferase 21 U/L (6-50); Albumin Level 3.1 g/dL (3.5-5.1); Alkaline Phosphatase 82 U/L (38-126); Anion Gap 10 mmol/L (8-16); Aspartate Amino Transferase 35 U/L (17-59); Bilirubin,Total 0.7 mg/dL (0.2-1.3); Blood Urea Nitrogen 19 mg/dL (9-20); Calcium 8.2 mg/dL (8.4-10.2); Carbon Dioxide 27 mmol/L (22-30); Chloride 98 mmol/L (98-107); Estimated CRCL calculation 50 ml/min; Estimated Glomerular Filt Rate 59; Glucose 100 mg/dL (65-110); Hematocrit 34.2 % (42.0-52.0); Immature Granulocyte Absolute 0.02 K/mm3 (0.00-0.031); Immature Granulocyte Percent A 0.5 % (0-0.5); Lymphocytes Absolute Auto 0.23 K/mm3 (0.9-3.2); Lymphocytes Percent Auto 5.6 % (18.3-44.2); Mean Corpuscular HGB Conc 32.2 g/dl (32-36); Mean Corpuscular Hemoglobin 29.2 pg (26-34); Mean Corpuscular Volume 90.7 fl (80-100); Monocytes Absolute Auto 0.3 K/mm3 (0.1-0.6); Monocytes Percent Auto 7.8 % (2.6-8.5); Neutrophils Absolute Auto 3.5 K/mm3 (1.3-6.7); Neutrophils Percent Auto 86.1 % (45.5-73.1); Platelet Count Result 112 k/mm3 (150-375); Potassium 3.5 mmol/L (3.4-5.0); Red Blood Count 3.77 M/mm3 (4.6-6.20); Red Cell Distribution Width 14.3 % (11.5-14.5); Sodium 135 mmol/L (137-145); White Blood Count 4.1 K/mm3 (4.5-10.0)
[2022-03-17 06:18] LABS: Lactic Acid Reflex 1.6 mmol/L (0.7-2.0)
[2022-03-17 06:45] LABS: Influenza Control Positive
--- NOTE | 2022-03-17 06:45 | PC.NURSE ---
This patient, Ivan Márquez, was received from [facility][note 3] on 03/17/22 at 0645. Patient/family oriented to unit policies and routines.
--- NOTE | 2022-03-17 06:57 | PC.NURSE ---
At 0453 Dr. Groves was notified that pts vitals were getting worse after getting better. Pts vitals were as follows 153/113, O2 89-92 dipping into the 70's, temp of 100.3f, respirations of 21. Dr. Groves said that there were things we could do with the blood pressure if we need to. She ordered labs and a chest Xray, but we werent doing anything else at this time. I reported this to the charge nurse, Stephanie, because I did not agree with this decision. Stephanie called Dr. Groves and discussed this with her and Dr. Groves decided to transfer pt to IMU. Pt was transferred down at 0625.
[2022-03-17] MEDS: FUROSEMIDE INJ 40 MG/4 ML VIAL IV PUSH ×2 (06:59→17:03)
--- NOTE | 2022-03-17 07:10 | PM.IMPN ---
Progress Note: A&P Assessment and Plan (1) Left lower lobe pneumonia: Qualifiers: Pneumonia type: due to unspecified organism Qualified Code(s): J18.9 - Pneumonia, unspecified organism Code(s): J18.9 - Pneumonia, unspecified organism Status: Acute Assessment and Plan: Patient presented to the emergency room with complaints of increasing weakness. ABG shows PaO2 of 57 an oxyhemoglobin of 86% on room air, WBC 11.2 with left shift, temp 100.8? F max, and chest x-ray consistent with left lower lobe infiltrates. Patient treated with Rocephin 1 g IV and azithromycin 500 mg IV in the ED. He was continued on Rocephin and Azithromycin upon admission -03/16/22. 03/17/22 Patient still febrile 100.3-103.3F overnight. HR and BP stable. Repeat chest x-ray with pulmonary opacities suggestive of pneumonia left mid and lower lung, as well as right mid lung, or asymmetric edema and small-moderate pleural effusion. Broaden antibiotic coverage to Cefepime 2 gram IV Q12 hours, Azithromycin 500 mg IV Q24 and Vancomycin IV pharmacy to dose (started 03/17/22) x 7 days. WBC 4.1, neutrophil count 86.1% Blood cultures and sputum cultures pending. Add DuoNebs scheduled. Patient is a fdc smoker of 2 packs per day since the age of 15 and likely has underlying COPD. He may need initiation of IV steroids however we will trial short-acting bronchodilators. P.r.n. acetaminophen for fevers. Influenza a and B negative, SARS-CoV-2 negative, urine Legionella, mycoplasma, and pneumococcal antigen all pending He is currently on 6L NC. (2) Acute metabolic encephalopathy: Code(s): G93.41 - Metabolic encephalopathy Status: Acute Assessment and Plan: Secondary to acute infection, hypoxemia, and acute dehydration. Reoriented as needed. B12 945 and within normal limits, folate 14.9 and normal, TSH 0.285 with normal free T4 1.46 and total T3 0.60 unlikely cause of acute confusion. Head CT on admission is negative for acute pathology. 03/17/22 Patient still confused will order MRI brain to rule out intracranial pathology. check Ammonia level. Repeat ABG shows PaO2 197, PaCO2 31 on non-rebreather (3) Elevated ferritin: Code(s): R79.89 - Other specified abnormal findings of blood chemistry Status: Acute Assessment and Plan: Ferritin level greater than 2000. Transferrin low 114, serum iron 20, TIBC low 175 and iron saturation 11%. Hemoglobin 10.5. Patient is noted to have discoloration to upper chest that is longstanding. Ferritin is an acute phase reactant and may be elevated secondary to acute infection however given that this is a severely elevated we will proceed with hemochromatosis workup hemochromatosis PCR pending (4) Dehydration: Code(s): E86.0 - Dehydration Status: Acute Assessment and Plan: Upon admission patient noted to have a BUN 23, creatinine 1.7, GFR 39. His renal function was within normal limits in January of this year. Continue IV fluids. Hold furosemide. Monitor strict intake and output 03/17/22 CXR with pulmonary edema and left pleural effusion. IV fluids stopped. Lasix started. (5) Renal insufficiency: Code(s): N28.9 - Disorder of kidney and ureter, unspecified Status: Acute Assessment and Plan: Secondary to acute infection and dehydration as above. Continue IV fluids and monitor renal function daily. Avoid nephrotoxic agents. Hold losartan and furosemide Further evaluation of medical records show patient has had Oncology evaluation for MGUS. (6) Pulmonary edema: Qualifiers: Chronicity: acute Qualified Code(s): J81.0 - Acute pulmonary edema Code(s): J81.1 - Chronic pulmonary edema Status: Acute Assessment and Plan: CXR with Airspace opacities in the left mid to lower and right mid lung zones, multifocal pneumonia versus asymmetric pulmonary edema, and Cardiomegaly. Patient with -1600 mL ur
[2022-03-17] MEDS: guaiFENesin 12 HR 600 MG TABCR PO ×2 (09:32→20:36)
[2022-03-17] MEDS: PANTOPRAZOLE 40 MG TABLET PO (09:32)
[2022-03-17] MEDS: OMEGA 3 POLYUNSAT FATTY ACIDS 1 GM CAP PO ×2 (09:32→17:03)
[2022-03-17] MEDS: COLESTIPOL HCL 1 GM TABLET 2 GM PO ×2 (09:33→20:37)
[2022-03-17] MEDS: GABAPENTIN 300 MG CAPSULE 600 MG PO ×2 (09:34→15:21)
[2022-03-17] MEDS: ENOXAPARIN 40 MG/0.4 ML SYRINGE SUB-Q (09:34)
[2022-03-17] MEDS: modafiniL (*CRX) 200 MG TABLET PO (09:34)
[2022-03-17] MEDS: modafiniL (*CRX) 100 MG TABLET PO (09:34)
[2022-03-17] MEDS: ISOSORBIDE MONONITRATE 60 MG TAB.ER.24H PO (09:35)
[2022-03-17] MEDS: buPROPion HCL SR (12 HR) 150 MG TAB PO ×2 (09:35→20:37)
[2022-03-17] MEDS: BUDESONIDE 3 MG CAP.SR.24H 9 MG PO (09:36)
[2022-03-17] MEDS: oxyCODONE/ACETAMINOPHEN (*CRX) 10-325 MG TABLET 1 TAB PO ×3 (09:45→20:40)
[2022-03-17] MEDS: POTASSIUM CHLORIDE 20 MEQ TABLET 60 MEQ PO (11:53)
--- NOTE | 2022-03-17 12:57 | PCOTNOTE ---
Per RN, patient to get MRI. Stated hold therapy until tomorrow. Will continue OT plan of care.
--- NOTE | 2022-03-17 13:01 | PCPTNOTE ---
Attempted to see patient for physical therapy, Per RN: pt is to get a brain MRI. Will see pt once test is completed and results are read. Will Follow.
[2022-03-17 15:17] LABS: Potassium 3.3 mmol/L (3.4-5.0)
[2022-03-17 15:20] LABS: Ammonia 13 umol/L (9-30)
[2022-03-17 15:37] LABS: Troponin I 0.099 ng/mL (0.000-0.034)
[2022-03-17] MEDS: LIDOCAINE 5% PATCH 2 PATCH TRANSDERM (17:04)
[2022-03-17] MEDS: POTASSIUM CHLORIDE 20 MEQ TABLET 40 MEQ PO (17:15)
[2022-03-17] MEDS: FAMOTIDINE 20 MG TABLET 40 MG PO (20:37)
[2022-03-17] MEDS: traZODone HCL 50 MG TABLET 100 MG PO (20:38)
[2022-03-17] MEDS: ATORVASTATIN 20 MG TABLET PO (20:38)
[2022-03-18] VITALS (23 sets, daily range): BP systolic 128–174; BP diastolic 61–83; PULSE 66–98; RESP 16–28; TEMP 36.3–37.2; O2SAT 91–100
[2022-03-18] MEDS: ALBUTEROL SULFATE NEB 2.5 MG/3 ML INH INHALATION ×4 (02:36→21:21)
[2022-03-18] MEDS: IPRATROPIUM BR 0.02% INH SOLN 0.5 MG/2.5 ML VIAL INHALATION ×4 (02:36→21:21)
[2022-03-18 05:22] LABS: Basophils Percent Auto 0.3 % (0.2-1.2); Eosinophils Percent Auto 0.3 % (0-4.4); Hematocrit 31.4 % (42.0-52.0); Hemoglobin 10.2 g/dL (14.0-18.0); Immature Granulocyte Absolute 0.02 K/mm3 (0.00-0.031); Immature Granulocyte Percent A 0.6 % (0-0.5); Immature Platelet Fraction Pct 6.8 % (0.9-11.2); Lymphocytes Absolute Auto 0.24 K/mm3 (0.9-3.2); Lymphocytes Percent Auto 7.3 % (18.3-44.2); Mean Corpuscular HGB Conc 32.5 g/dl (32-36); Mean Corpuscular Hemoglobin 29.2 pg (26-34); Mean Platelet Volume 11.3 fl (7.4-10.4); Monocytes Absolute Auto 0.4 K/mm3 (0.1-0.6); Monocytes Percent Auto 13.3 % (2.6-8.5); Neutrophils Absolute Auto 2.6 K/mm3 (1.3-6.7); Neutrophils Percent Auto 78.2 % (45.5-73.1); Platelet Count Result 120 k/mm3 (150-375); Red Blood Count 3.49 M/mm3 (4.6-6.20); Red Cell Distribution Width 14.5 % (11.5-14.5); White Blood Count 3.3 K/mm3 (4.5-10.0)
[2022-03-18 05:35] LABS: Alanine Aminotransferase 21 U/L (6-50); Albumin Level 2.7 g/dL (3.5-5.1); Alkaline Phosphatase 65 U/L (38-126); Anion Gap 8 mmol/L (8-16); Aspartate Amino Transferase 38 U/L (17-59); Bilirubin,Total 0.6 mg/dL (0.2-1.3); Blood Urea Nitrogen 18 mg/dL (9-20); Calcium 7.9 mg/dL (8.4-10.2); Carbon Dioxide 28 mmol/L (22-30); Chloride 96 mmol/L (98-107); Cholesterol 68 mg/dL (0-200); Estimated CRCL calculation 55 ml/min; Estimated Glomerular Filt Rate > 60; Glucose 104 mg/dL (65-110); HDL Direct 16 mg/dL; Potassium 3.9 mmol/L (3.4-5.0); Sodium 132 mmol/L (137-145); Triglycerides 170 mg/dL (<150)
[2022-03-18 05:49] LABS: Troponin I 0.057 ng/mL (0.000-0.034)
[2022-03-18 05:52] LABS: LDL Cholesterol Direct < 30 mg/dL
[2022-03-18] MEDS: LIDOCAINE 5% PATCH 2 PATCH TRANSDERM (11:22)
[2022-03-18] MEDS: FUROSEMIDE INJ 40 MG/4 ML VIAL IV PUSH ×2 (11:22→17:31)
[2022-03-18] MEDS: ENOXAPARIN 40 MG/0.4 ML SYRINGE SUB-Q (11:22)
[2022-03-18] MEDS: ISOSORBIDE MONONITRATE 60 MG TAB.ER.24H PO (11:27)
[2022-03-18] MEDS: BUDESONIDE 3 MG CAP.SR.24H 9 MG PO (11:32)
[2022-03-18] MEDS: OMEGA 3 POLYUNSAT FATTY ACIDS 1 GM CAP PO ×2 (11:32→17:31)
[2022-03-18] MEDS: ASPIRIN 81 MG ENTERIC TABLET PO (11:32)
[2022-03-18] MEDS: guaiFENesin 12 HR 600 MG TABCR PO ×2 (11:33→20:41)
[2022-03-18] MEDS: COLESTIPOL HCL 1 GM TABLET 2 GM PO ×2 (11:33→20:40)
[2022-03-18] MEDS: GABAPENTIN 300 MG CAPSULE 600 MG PO ×2 (11:33→17:31)
[2022-03-18] MEDS: buPROPion HCL SR (12 HR) 150 MG TAB PO ×2 (11:33→20:41)
[2022-03-18] MEDS: LOSARTAN POTASSIUM 50 MG TABLET PO (11:34)
[2022-03-18] MEDS: PANTOPRAZOLE 40 MG TABLET PO (11:34)
[2022-03-18] MEDS: oxyCODONE/ACETAMINOPHEN (*CRX) 10-325 MG TABLET 1 TAB PO ×3 (11:40→20:41)
[2022-03-18] MEDS: POTASSIUM CHLORIDE 20 MEQ TABLET.ER 40 MEQ PO (11:40)
[2022-03-18] MEDS: modafiniL (*CRX) 200 MG TABLET PO (11:41)
[2022-03-18] MEDS: modafiniL (*CRX) 100 MG TABLET PO (11:41)
--- NOTE | 2022-03-18 11:46 | PCSTNOTE ---
Please refer to the Bedside Swallow Evaluation in the EMR. Please note, silent aspiration cannot be ruled out at bedside.
[2022-03-18 13:28] LABS: Pneumococcal Antigen Urine Not Detected (Not Detected)
[2022-03-18 14:21] LABS: Glucose Point of Care 169 mg/dl (65-105)
--- NOTE | 2022-03-18 14:29 | PCPTNOTE ---
Attempted to see patient for PT, per RN patient is having increase confusing and advised not to see patient for PT at this time.
--- NOTE | 2022-03-18 15:25 | WPDNEURCNPN ---
Assessment and Plan Assessment and plan (1) Acute metabolic encephalopathy: Code(s): G93.41 - Metabolic encephalopathy Status: Acute (2) Left lower lobe pneumonia: Qualifiers: Pneumonia type: due to unspecified organism Qualified Code(s): J18.9 - Pneumonia, unspecified organism Code(s): J18.9 - Pneumonia, unspecified organism Status: Acute Plan Mr. Márquez is a 76 year old male with a history of aortic abdominal anuerysm, CAD, HTN, HLD, STAN, CAD presenting with altered mental status. He was found to have pneumonia, and is currently being treated for it. Mental status seems to be fluctuating throughout admission with confabulations. 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 Occult seizures are a possibility but no obvious seizure-like activity has been reported. Another consideration would be meningitis/encephalitis. - Obtain routine EEG and lumbar puncture - Will check thiamine level Consult date: 03/19/22 Reason for consult: Altered mental status HPI: Ivan Márquez is a 76 year old male with ahistory of abdominal aortic aneurysm, CAD, HTN, HLD, obstructive sleep apnea who presented on 03/15 due to complaints of generalized weakness, cough. BP at home was in 70s/40s so EMS was called. He was brought to [facility] where he appeared confused and was having word-finding difficulties. CT head was negative. CXR was concerning for left lower lobe pneumonia. Labs were significant for low TSH (0.285) and normal T4. He did have elevated ferritin (>2000). Other labs including B12, folate, and UA were within normal limits. Patient was started on antibiotics and was hypoxic, so he was admitted with O2 as well. Since admission, patient's mental status has been fluctuating. At baseline he is AOx4, but he is having episodes of non-sensical speech and confusion. MRI brain was obtained yesterday which showed old infarct in the right frontoparietal region. CTA brain/neck was obtained today which was normal. Per patient is still not at baseline. He has been mentioning things such as a history of a cancer, but is not aware of any prior cancer diagnosis. No history of chronic alcohol use. Review of Systems Review of Systems: ROS unobtainable: Yes unobtainable due to mental status PMFSH Past Medical History Medical History Abdominal aortic aneurysm, without rupture Being monitored. Most recent measurement was 5.5 centimeters per patient report. Atherosclerotic heart disease of [place] coronary artery with other forms of angina pectoris Chronic back pain Essential (primary) hypertension Gastro-esophageal reflux disease without esophagitis Normal colonoscopy 08/24 Obstructive sleep apnea (adult) (pediatric) Pure hypercholesterolemia, unspecified Tobacco dependence Surgical History Surgical History History of cholecystectomy History of foot surgery Left 2005; Right 2010 History of right nephrectomy 2009 History of rotator cuff surgery Left Stented coronary artery Family History Family History Father Hypertension Acute myocardial infarction Sibling Family history of malignant neoplasm Family history of heart disease in male family member before age 55 Social History Social History Social History: Surrogate medical decision maker: Lida Márquez, spouse. Code status: Full code. Smoking packs per day: 2 Smoking cigarettes per day: 40.0 Years smoked: 60 Smoking pack-years: 120.00 Smoking status: Current every day smoker Tobacco type: cigarettes Second hand tobacco smoke exposure: Yes Alcohol intake: never Substance use: never Substance use type: does not use and marijuana Lack of Transportation: No Lack of Food: N
--- NOTE | 2022-03-18 17:15 | PM.IMPN ---
Progress Note: A&P Assessment and Plan (1) Left lower lobe pneumonia: Qualifiers: Pneumonia type: due to unspecified organism Qualified Code(s): J18.9 - Pneumonia, unspecified organism Code(s): J18.9 - Pneumonia, unspecified organism Status: Acute Assessment and Plan: Pt treated forLL pneumonia Influenza a and B negative, SARS-CoV-2 negative, urine Legionella, mycoplasma, and pneumococcal antigen all pending He is currently on 3L NC. Pt currently on IV vancomycin, cefepime and zithromax Pt having thick wet cough today Sp swallow evaluation today which he passed (2) Acute metabolic encephalopathy: Code(s): G93.41 - Metabolic encephalopathy Status: Acute Assessment and Plan: Secondary to acute infection, hypoxemia, and acute dehydration. Pt had rpt CTA head and neck today Neurology consulted Pt to have MRI brain and EEG tomorrow and possible LP (3) Elevated ferritin: Code(s): R79.89 - Other specified abnormal findings of blood chemistry Status: Acute Assessment and Plan: . Ferritin is an acute phase reactant and may be elevated secondary to acute infection however given that this is a severely elevated we will proceed with hemochromatosis workup hemochromatosis PCR pending (4) Dehydration: Code(s): E86.0 - Dehydration Status: Acute Assessment and Plan: 03/17/22 CXR with pulmonary edema and left pleural effusion. Lasix IV started. and continued watch BMP (5) Renal insufficiency: Code(s): N28.9 - Disorder of kidney and ureter, unspecified Status: Acute Assessment and Plan: watch bmp. Further evaluation of medical records show patient has had Oncology evaluation for MGUS. (6) Pulmonary edema: Qualifiers: Chronicity: acute Qualified Code(s): J81.0 - Acute pulmonary edema Code(s): J81.1 - Chronic pulmonary edema Status: Acute Assessment and Plan: CXR with Airspace opacities in the left mid to lower and right mid lung zones, multifocal pneumonia versus asymmetric pulmonary edema. PT currently on iv lasix watch bmp and rpt CXR [place] AM (7) Elevated troponin: Code(s): R77.8 - Other specified abnormalities of plasma proteins Status: Acute Assessment and Plan: Troponin 0.042 to 0.057 Secondary to CHF exacerbation (8) Generalized weakness: Code(s): R53.1 - Weakness Status: Acute Assessment and Plan: Secondary to acute infection. PT OT consulted. (9) Tobacco dependence: Code(s): F17.200 - Nicotine dependence, unspecified, uncomplicated Status: Chronic Assessment and Plan: Patient is a long-term smoker with 122 pack-year smoking history and is still a current everyday smoker. (10) Essential (primary) hypertension: Code(s): I10 - Essential (primary) hypertension Status: Chronic Assessment and Plan: Bp is 150/72 Continue Imdur. Furosemide 40 mg IV BID initiated 03/17/22 (11) Iron deficiency anemia: Qualifiers: Iron deficiency anemia type: unspecified iron deficiency Qualified Code(s): D50.9 - Iron deficiency anemia, unspecified Code(s): D50.9 - Iron deficiency anemia, unspecified Status: Acute Assessment and Plan: Transferrin low 114, serum iron 20, TIBC low 175 and iron saturation 11%. Hemoglobin 10.5. Given patient has significantly elevated ferritin level will hold supplementation at this time. (12) Obstructive sleep apnea (adult) (pediatric): Code(s): G47.33 - Obstructive sleep apnea (adult) (pediatric) Status: Chronic Assessment and Plan: Intolerant of CPAP (13) Gastro-esophageal reflux disease without esophagitis: Code(s): K21.9 - Gastro-esophageal reflux disease without esophagitis Status: Chronic Assessment and Plan: Continue famotidine. (14) Chronic back pain: Qualifiers: B
[2022-03-18] MEDS: ATORVASTATIN 20 MG TABLET PO (20:41)
[2022-03-18] MEDS: FAMOTIDINE 20 MG TABLET 40 MG PO (20:41)
[2022-03-18] MEDS: traZODone HCL 50 MG TABLET 100 MG PO (20:41)
[2022-03-19] VITALS (20 sets, daily range): BP systolic 101–157; BP diastolic 62–100; PULSE 59–92; RESP 12–20; TEMP 36.2–38.7; O2SAT 88–100
[2022-03-19] MEDS: ALBUTEROL SULFATE NEB 2.5 MG/3 ML INH INHALATION ×3 (02:04→21:37)
[2022-03-19] MEDS: IPRATROPIUM BR 0.02% INH SOLN 0.5 MG/2.5 ML VIAL INHALATION ×3 (02:05→21:37)
[2022-03-19 05:09] LABS: Basophils Percent Auto 0.4 % (0.2-1.2); Eosinophils Percent Auto 0.6 % (0-4.4); Hematocrit 30.4 % (42.0-52.0); Hemoglobin 9.9 g/dL (14.0-18.0); Immature Granulocyte Absolute 0.04 K/mm3 (0.00-0.031); Immature Granulocyte Percent A 0.8 % (0-0.5); Immature Platelet Fraction Pct 7.7 % (0.9-11.2); Lymphocytes Absolute Auto 0.31 K/mm3 (0.9-3.2); Lymphocytes Percent Auto 6.3 % (18.3-44.2); Mean Corpuscular HGB Conc 32.6 g/dl (32-36); Mean Corpuscular Volume 89.1 fl (80-100); Monocytes Absolute Auto 0.6 K/mm3 (0.1-0.6); Monocytes Percent Auto 11.7 % (2.6-8.5); Neutrophils Percent Auto 80.2 % (45.5-73.1); Platelet Count Result 119 k/mm3 (150-375); Red Blood Count 3.41 M/mm3 (4.6-6.20); Red Cell Distribution Width 14.6 % (11.5-14.5)
[2022-03-19 05:18] LABS: Alanine Aminotransferase 23 U/L (6-50); Albumin Level 2.8 g/dL (3.5-5.1); Alkaline Phosphatase 69 U/L (38-126); Anion Gap 9 mmol/L (8-16); Aspartate Amino Transferase 43 U/L (17-59); Bilirubin,Total 0.6 mg/dL (0.2-1.3); Blood Urea Nitrogen 15 mg/dL (9-20); Carbon Dioxide 29 mmol/L (22-30); Chloride 94 mmol/L (98-107); Estimated CRCL calculation 60 ml/min; Estimated Glomerular Filt Rate > 60; Glucose 109 mg/dL (65-110); Potassium 3.9 mmol/L (3.4-5.0); Sodium 132 mmol/L (137-145)
[2022-03-19] MEDS: POTASSIUM CHLORIDE 20 MEQ TABLET.ER 40 MEQ PO (10:35)
[2022-03-19] MEDS: COLESTIPOL HCL 1 GM TABLET 2 GM PO ×2 (10:35→19:47)
[2022-03-19] MEDS: PANTOPRAZOLE 40 MG TABLET PO (10:36)
[2022-03-19] MEDS: ENOXAPARIN 40 MG/0.4 ML SYRINGE SUB-Q (10:37)
[2022-03-19] MEDS: OMEGA 3 POLYUNSAT FATTY ACIDS 1 GM CAP PO ×2 (10:37→18:37)
[2022-03-19] MEDS: buPROPion HCL SR (12 HR) 150 MG TAB PO ×2 (10:38→19:47)
[2022-03-19] MEDS: guaiFENesin 12 HR 600 MG TABCR PO ×2 (10:39→19:47)
[2022-03-19] MEDS: GABAPENTIN 300 MG CAPSULE 600 MG PO ×2 (10:39→18:37)
[2022-03-19] MEDS: LIDOCAINE 5% PATCH 2 PATCH TRANSDERM (10:40)
[2022-03-19] MEDS: ISOSORBIDE MONONITRATE 60 MG TAB.ER.24H PO (10:40)
[2022-03-19] MEDS: modafiniL (*CRX) 100 MG TABLET PO (10:41)
[2022-03-19] MEDS: modafiniL (*CRX) 200 MG TABLET PO (10:41)
[2022-03-19] MEDS: FUROSEMIDE INJ 40 MG/4 ML VIAL IV PUSH ×2 (10:43→18:37)
[2022-03-19] MEDS: ASPIRIN 81 MG ENTERIC TABLET PO (10:44)
[2022-03-19] MEDS: LOSARTAN POTASSIUM 50 MG TABLET PO (10:44)
[2022-03-19] MEDS: oxyCODONE/ACETAMINOPHEN (*CRX) 10-325 MG TABLET 1 TAB PO ×3 (10:44→19:50)
--- NOTE | 2022-03-19 12:00 | PM.IMPN ---
Progress Note: A&P Assessment and Plan (1) Left lower lobe pneumonia: Qualifiers: Pneumonia type: due to unspecified organism Qualified Code(s): J18.9 - Pneumonia, unspecified organism Code(s): J18.9 - Pneumonia, unspecified organism Status: Acute Assessment and Plan: Pt treated forLL pneumonia Influenza a and B negative, SARS-CoV-2 negative, urine Legionella, mycoplasma, and pneumococcal antigen all pending He is currently on 3L NC. Pt currently on IV vancomycin, cefepime and zithromax (2) Acute metabolic encephalopathy: Code(s): G93.41 - Metabolic encephalopathy Status: Acute Assessment and Plan: Secondary to acute infection, hypoxemia, and acute dehydration. CTA head and neck, MRI, echo normal Neurology consulted Pt to have EEG and possible LP continue vancomycin for possible meningitis (3) Elevated ferritin: Code(s): R79.89 - Other specified abnormal findings of blood chemistry Status: Acute Assessment and Plan: . Ferritin is an acute phase reactant and may be elevated secondary to acute infection however given that this is a severely elevated we will proceed with hemochromatosis workup hemochromatosis PCR pending (4) Dehydration: Code(s): E86.0 - Dehydration Status: Acute Assessment and Plan: 03/17/22 CXR with pulmonary edema and left pleural effusion. Lasix IV started. and continued watch BMP (5) Renal insufficiency: Code(s): N28.9 - Disorder of kidney and ureter, unspecified Status: Acute Assessment and Plan: watch bmp. Further evaluation of medical records show patient has had Oncology evaluation for MGUS. (6) Pulmonary edema: Qualifiers: Chronicity: acute Qualified Code(s): J81.0 - Acute pulmonary edema Code(s): J81.1 - Chronic pulmonary edema Status: Acute Assessment and Plan: CXR with Airspace opacities in the left mid to lower and right mid lung zones, multifocal pneumonia versus asymmetric pulmonary edema. PT currently on iv lasix watch bmp and rpt CXR [place] AM (7) Elevated troponin: Code(s): R77.8 - Other specified abnormalities of plasma proteins Status: Acute Assessment and Plan: Troponin 0.042 to 0.057 Secondary to CHF exacerbation (8) Iron deficiency anemia: Qualifiers: Iron deficiency anemia type: unspecified iron deficiency Qualified Code(s): D50.9 - Iron deficiency anemia, unspecified Code(s): D50.9 - Iron deficiency anemia, unspecified Status: Acute Assessment and Plan: Transferrin low 114, serum iron 20, TIBC low 175 and iron saturation 11%. Hemoglobin 10.5. Given patient has significantly elevated ferritin level will hold supplementation at this time. (9) Gastro-esophageal reflux disease without esophagitis: Code(s): K21.9 - Gastro-esophageal reflux disease without esophagitis Status: Chronic Assessment and Plan: Continue famotidine. Plan Code status: Full code Disposition: Undetermined. Patient lives with his and will likely discharge home however he may need home health versus SNF depending on hospital course Subjective Date/time seen: 03/19/22 12:00 patient is awake alert oriented at this time but according to the nursing staff his mental status waxes and wanes and he gets confused often Review of Systems Review of Systems: Confusion which fluctuates negative otherwise Exam Narrative: General: ill-appearing, orientedx3 this morning Respiratory: decreased BS at both bases Cardiovascular: Regular rate and rhythm with S1-S2. Gastrointestinal: Abdomen is soft, protuberant, nontender, and nondistended with positive bowel sounds. No guarding Skin: Warm and dry. Extremities: No cyanosis, clubbing, or edema. Radial and pedal pulses intact bilaterally. Grossly normal range of motion with generalized weakness. Neurological
[2022-03-19 13:06] LABS: INR 1.4; Prothrombin Time 16.3 Seconds (11.1-14.7)
[2022-03-19 13:07] LABS: Partial Thromboplastin Time 40.4 SECONDS (22.3-36.8)
[2022-03-19 15:30] LABS: Glucose CSF 66 mg/dL (40-70); Total Protein CSF 55 mg/dL (12-60)
[2022-03-19 15:51] LABS: Appearance CSF Clear (Clear); CSF source CSF; Color CSF Colorless (Colorless); Lymphocytes CSF 32 % (40-80); Monocytes CSF 64 % (15-45); Neutrophils CSF 4 % (0-6); Nucleated Cell CSF 8 /uL (0-5); Red Blood Cell CSF 0 (0-2)
[2022-03-19 17:15] LABS: Mycoplasma IgM Antibody Titer 13 U/mL (<770)
[2022-03-19 19:40] LABS: Vancomycin Trough 8.1 ug/mL (10.0-20.0)
[2022-03-19] MEDS: ATORVASTATIN 20 MG TABLET PO (19:47)
[2022-03-19] MEDS: traZODone HCL 50 MG TABLET 100 MG PO (19:47)
[2022-03-19] MEDS: FAMOTIDINE 20 MG TABLET 40 MG PO (19:48)
[2022-03-20] VITALS (20 sets, daily range): BP systolic 102–159; BP diastolic 69–91; PULSE 58–89; RESP 18–28; TEMP 36–37.1; O2SAT 90–100
[2022-03-20] MEDS: ALBUTEROL SULFATE NEB 2.5 MG/3 ML INH INHALATION ×4 (03:03→19:42)
[2022-03-20] MEDS: IPRATROPIUM BR 0.02% INH SOLN 0.5 MG/2.5 ML VIAL INHALATION ×4 (03:03→19:46)
[2022-03-20] MEDS: POTASSIUM CHLORIDE 20 MEQ TABLET.ER 40 MEQ PO (09:08)
[2022-03-20] MEDS: modafiniL (*CRX) 200 MG TABLET PO (09:08)
[2022-03-20] MEDS: oxyCODONE/ACETAMINOPHEN (*CRX) 10-325 MG TABLET 1 TAB PO ×4 (09:09→22:12)
[2022-03-20] MEDS: PANTOPRAZOLE 40 MG TABLET PO (09:09)
[2022-03-20] MEDS: modafiniL (*CRX) 100 MG TABLET PO (09:09)
[2022-03-20] MEDS: GABAPENTIN 300 MG CAPSULE 600 MG PO ×3 (09:09→17:41)
[2022-03-20] MEDS: LOSARTAN POTASSIUM 50 MG TABLET PO (09:10)
[2022-03-20] MEDS: guaiFENesin 12 HR 600 MG TABCR PO ×2 (09:10→22:12)
[2022-03-20] MEDS: ISOSORBIDE MONONITRATE 60 MG TAB.ER.24H PO (09:10)
[2022-03-20] MEDS: ASPIRIN 81 MG ENTERIC TABLET PO (09:10)
[2022-03-20] MEDS: OMEGA 3 POLYUNSAT FATTY ACIDS 1 GM CAP PO ×2 (09:10→17:41)
[2022-03-20] MEDS: buPROPion HCL SR (12 HR) 150 MG TAB PO ×2 (09:10→22:12)
[2022-03-20] MEDS: COLESTIPOL HCL 1 GM TABLET 2 GM PO ×2 (09:10→22:12)
[2022-03-20] MEDS: LIDOCAINE 5% PATCH 2 PATCH TRANSDERM (09:12)
[2022-03-20] MEDS: FUROSEMIDE INJ 40 MG/4 ML VIAL IV PUSH ×2 (09:12→17:38)
[2022-03-20] MEDS: ENOXAPARIN 40 MG/0.4 ML SYRINGE SUB-Q (09:12)
--- NOTE | 2022-03-20 09:26 | PCPTNOTE ---
Attempted to see patient for PT, however patient reported he wanted his to be here when he works with therapy. Will check back when is present.
--- NOTE | 2022-03-20 09:49 | WPDNEUROPN ---
Progress Note: A&P Assessment and Plan (1) Acute metabolic encephalopathy: Code(s): G93.41 - Metabolic encephalopathy Status: Acute (2) Left lower lobe pneumonia: Qualifiers: Pneumonia type: due to unspecified organism Qualified Code(s): J18.9 - Pneumonia, unspecified organism Code(s): J18.9 - Pneumonia, unspecified organism Status: Acute Plan Mr. Márquez is a 76 year old male with a history of aortic abdominal aneurysm, CAD, HTN, HLD, STAN presenting with altered mental status. He was found to have pneumonia, which he is currently being treated for. Mental status seems to be fluctuating throughout admission with confabulations. 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 Occult seizures are a possibility but no obvious seizure-like activity has been reported and EEG was normal. Considering meningitis/encephalitis given elevated cell count on CSF, although only mildly elevated. Overall, mental status seems to have improved since yesterday. - Continue antibiotics and acyclovir until bacterial cultures/HSV PCR has resulted - Consider repeating MRI with and without contrast and sending autoimmune encephalitis panel if no improvement Subjective Date/time seen: 03/20/22 09:50 Interval history: Ivan Márquez is a 76 year old male with ahistory of abdominal aortic aneurysm, CAD, HTN, HLD, obstructive sleep apnea who presented on 03/15 due to complaints of generalized weakness, cough. BP at home was in 70s/40s so EMS was called. He was brought to [place] ED where he appeared confused and was having word-finding difficulties. CT head was negative. CXR was concerning for left lower lobe pneumonia. Labs were significant for low TSH (0.285) and normal T4. He did have elevated ferritin (>2000). Other labs including B12, folate, and UA were within normal limits. Patient was started on antibiotics and was hypoxic, so he was admitted with O2 as well. Since admission, patient's mental status has been fluctuating. At baseline he is AOx4, but he is having episodes of non-sensical speech and confusion. MRI brain was obtained which showed old infarct in the right frontoparietal region. CTA brain/neck was obtained which was normal. Lumbar puncture was done yesterday. Cell count 8 (64% monocytes), with normal protein and glucose. Started on acyclovir and continued on antibiotics for meningitic coverage. Routine EEG done this morning which was normal. feels that he has improved from yesterday, but is still having some memory lapses. Review of Systems Constitutional: Constitutional: Reports no additional constitutional complaints Eyes: Eyes: Reports no additional eye complaints ENT: Reports system reviewed and no additional complaints, except as documented Cardiovascular: Cardiovascular: Reports no additional cardiovascular complaints Respiratory: Respiratory: Reports no additional respiratory complaints Gastrointestinal: Gastrointestinal: Reports no additional gastrointestinal complaints Genitourinary: Genitourinary: Reports no additional male genitourinary complaints Musculoskeletal: Comments: R shoulder pain Integumentary/Breasts: Skin/Breast: Reports system reviewed and no additional complaints, except as docu Neurologic: Reports as per HPI Psychiatric: Psychiatric: Reports confusion Exam Const: General: comfortable and no acute distress Eyes: General: appearance normal, both eyes and all related structures EOM: EOMs intact bilaterally Resp: Effort & Inspection: normal respiratory effort Skin: General skin exam: normal color Neuro: Other: Patient alert and oriented x 3. Still some tangential speech at times, but more coherent than yesterday. Moving all extremities equally against gravity. Extrem: General: normal to inspection Psych: Mental Status: mental status grossly normal Objective Data Vital Signs Vital Signs: Vital Signs - 2
--- NOTE | 2022-03-20 10:19 | WPDNEUROLOGY ---
Neurology EEG Report General Information Date of Study: 03/20/22 TEST Routine EEG DIAGNOSIS Altered mental status CONDITION OF RECORDING Awake and drowsy EEG NUMBER [id number] CLINICAL HISTORY Patient presented with altered mental status and respiratory symptoms. Found to have pneumonia, that is being treated. Continues to have fluctuation in mental status. EEG DESCRIPTION During the awake state with eyes closed the background consists of 8 Hz posterior dominant rhythm which attenuates appropriately with eye opening. The recording is continuous. There is a well developed anterior-posterior gradient. No significant asymmetries of background activities are noted. With drowsiness there is was waxing and waning of the dominant rhythm with eventual replacement by a mixture of alpha, and theta activity. Patient does not enter stage II sleep. There are no epileptiform discharges or seizures during this recording. Hyperventilation and photic stimulation were not performed. IMPRESSION This is a normal routine EEG recorded in awake and drowsy states. There are no electrographic seizures identified, nor are there any epileptiform discharges. Please note that a normal EEG cannot exclude a seizure disorder. Clinical correlation is recommended.
--- NOTE | 2022-03-20 11:36 | PM.IMPN ---
Progress Note: A&P Assessment and Plan (1) Left lower lobe pneumonia: Qualifiers: Pneumonia type: due to unspecified organism Qualified Code(s): J18.9 - Pneumonia, unspecified organism Code(s): J18.9 - Pneumonia, unspecified organism Status: Acute Assessment and Plan: Pt treated forLL pneumonia Influenza a and B negative, SARS-CoV-2 negative, urine Legionella, mycoplasma, and pneumococcal antigen all pending He is currently on 3L NC. Pt currently on IV vancomycin, cefepime and zithromax (2) Acute metabolic encephalopathy: Code(s): G93.41 - Metabolic encephalopathy Status: Acute Assessment and Plan: Secondary to acute infection, hypoxemia, and acute dehydration. CTA head and neck, MRI, echo normal Neurology consulted Pt to have EEG and possible LP continue vancomycin for possible meningitis (3) Elevated ferritin: Code(s): R79.89 - Other specified abnormal findings of blood chemistry Status: Acute Assessment and Plan: . Ferritin is an acute phase reactant and may be elevated secondary to acute infection however given that this is a severely elevated we will proceed with hemochromatosis workup hemochromatosis PCR pending (4) Dehydration: Code(s): E86.0 - Dehydration Status: Acute Assessment and Plan: 03/17/22 CXR with pulmonary edema and left pleural effusion. Lasix IV started. and continued watch BMP (5) Renal insufficiency: Code(s): N28.9 - Disorder of kidney and ureter, unspecified Status: Acute Assessment and Plan: watch bmp. Further evaluation of medical records show patient has had Oncology evaluation for MGUS. (6) Pulmonary edema: Qualifiers: Chronicity: acute Qualified Code(s): J81.0 - Acute pulmonary edema Code(s): J81.1 - Chronic pulmonary edema Status: Acute Assessment and Plan: CXR with Airspace opacities in the left mid to lower and right mid lung zones, multifocal pneumonia versus asymmetric pulmonary edema. PT currently on iv lasix watch bmp and rpt CXR [place] AM (7) Elevated troponin: Code(s): R77.8 - Other specified abnormalities of plasma proteins Status: Acute Assessment and Plan: Troponin 0.042 to 0.057 Secondary to CHF exacerbation (8) Iron deficiency anemia: Qualifiers: Iron deficiency anemia type: unspecified iron deficiency Qualified Code(s): D50.9 - Iron deficiency anemia, unspecified Code(s): D50.9 - Iron deficiency anemia, unspecified Status: Acute Assessment and Plan: Transferrin low 114, serum iron 20, TIBC low 175 and iron saturation 11%. Hemoglobin 10.5. Given patient has significantly elevated ferritin level will hold supplementation at this time. (9) Gastro-esophageal reflux disease without esophagitis: Code(s): K21.9 - Gastro-esophageal reflux disease without esophagitis Status: Chronic Assessment and Plan: Continue famotidine. Plan Code status: Full code Disposition: Undetermined. Patient lives with his and will likely discharge home however he may need home health versus SNF depending on hospital course Subjective Date/time seen: 03/20/2022 Interval history: Ivan Márquez is a 76 year old male with ahistory of abdominal aortic aneurysm, CAD, HTN, HLD, obstructive sleep apnea who presented on 03/15 due to complaints of generalized weakness, cough. BP at home was in 70s/40s so EMS was called. He was brought to [place] ED where he appeared confused and was having word-finding difficulties. CT head was negative. CXR was concerning for left lower lobe pneumonia. Labs were significant for low TSH (0.285) and normal T4. He did have elevated ferritin (>2000). Other labs including B12, folate, and UA were within normal limits. Patient was started on antibiotics and was hypoxic, so he was admitted with O2 as well. Since admission, patient's mental
[2022-03-20] MEDS: traZODone HCL 50 MG TABLET 100 MG PO (22:12)
[2022-03-20] MEDS: FAMOTIDINE 20 MG TABLET 40 MG PO (22:15)
[2022-03-20] MEDS: ATORVASTATIN 20 MG TABLET PO (22:15)
[2022-03-21] VITALS (23 sets, daily range): BP systolic 90–142; BP diastolic 53–80; PULSE 60–95; RESP 16–24; TEMP 36.3–37.5; O2SAT 92–98
[2022-03-21] MEDS: ALBUTEROL SULFATE NEB 2.5 MG/3 ML INH INHALATION ×4 (01:45→21:19)
[2022-03-21] MEDS: IPRATROPIUM BR 0.02% INH SOLN 0.5 MG/2.5 ML VIAL INHALATION ×4 (01:46→21:19)
[2022-03-21 05:28] LABS: Hematocrit 28.4 % (42.0-52.0); Hemoglobin 9.3 g/dL (14.0-18.0); Mean Corpuscular HGB Conc 32.7 g/dl (32-36); Mean Corpuscular Hemoglobin 28.5 pg (26-34); Mean Corpuscular Volume 87.1 fl (80-100); Mean Platelet Volume 11.8 fl (7.4-10.4); Platelet Count Result 171 k/mm3 (150-375); Red Blood Count 3.26 M/mm3 (4.6-6.20); Red Cell Distribution Width 14.5 % (11.5-14.5); White Blood Count 6.8 K/mm3 (4.5-10.0)
[2022-03-21 05:38] LABS: Vancomycin Trough 21.6 ug/mL (10.0-20.0)
[2022-03-21 05:39] LABS: Alanine Aminotransferase 31 U/L (6-50); Albumin Level 2.7 g/dL (3.5-5.1); Alkaline Phosphatase 76 U/L (38-126); Anion Gap 8 mmol/L (8-16); Aspartate Amino Transferase 47 U/L (17-59); Bilirubin,Total 0.7 mg/dL (0.2-1.3); Blood Urea Nitrogen 18 mg/dL (9-20); Carbon Dioxide 31 mmol/L (22-30); Chloride 92 mmol/L (98-107); Estimated CRCL calculation 50 ml/min; Estimated Glomerular Filt Rate 59; Glucose 105 mg/dL (65-110); Potassium 3.7 mmol/L (3.4-5.0); Sodium 131 mmol/L (137-145)
[2022-03-21] MEDS: ENOXAPARIN 40 MG/0.4 ML SYRINGE SUB-Q (10:00)
[2022-03-21] MEDS: GABAPENTIN 300 MG CAPSULE 600 MG PO ×3 (10:00→17:50)
[2022-03-21] MEDS: guaiFENesin 12 HR 600 MG TABCR PO ×2 (10:01→20:51)
[2022-03-21] MEDS: POTASSIUM CHLORIDE 20 MEQ TABLET.ER 40 MEQ PO (10:01)
[2022-03-21] MEDS: OMEGA 3 POLYUNSAT FATTY ACIDS 1 GM CAP PO ×2 (10:01→17:51)
[2022-03-21] MEDS: ASPIRIN 81 MG ENTERIC TABLET PO (10:01)
[2022-03-21] MEDS: ISOSORBIDE MONONITRATE 60 MG TAB.ER.24H PO (10:01)
[2022-03-21] MEDS: LOSARTAN POTASSIUM 50 MG TABLET PO (10:02)
[2022-03-21] MEDS: PANTOPRAZOLE 40 MG TABLET PO (10:02)
[2022-03-21] MEDS: FUROSEMIDE INJ 40 MG/4 ML VIAL IV PUSH ×2 (10:03→16:54)
[2022-03-21] MEDS: COLESTIPOL HCL 1 GM TABLET 2 GM PO ×2 (10:03→20:50)
[2022-03-21] MEDS: LIDOCAINE 5% PATCH 2 PATCH TRANSDERM (10:03)
[2022-03-21] MEDS: buPROPion HCL SR (12 HR) 150 MG TAB PO ×2 (10:04→20:49)
[2022-03-21] MEDS: oxyCODONE/ACETAMINOPHEN (*CRX) 10-325 MG TABLET 1 TAB PO ×4 (10:25→20:51)
[2022-03-21] MEDS: modafiniL (*CRX) 200 MG TABLET PO (10:25)
[2022-03-21] MEDS: modafiniL (*CRX) 100 MG TABLET PO (10:25)
--- NOTE | 2022-03-21 11:50 | WPDNEUROPN ---
Progress Note: A&P Assessment and Plan (1) Acute metabolic encephalopathy: Code(s): G93.41 - Metabolic encephalopathy Status: Acute (2) Left lower lobe pneumonia: Qualifiers: Pneumonia type: due to unspecified organism Qualified Code(s): J18.9 - Pneumonia, unspecified organism Code(s): J18.9 - Pneumonia, unspecified organism Status: Acute Plan Mr. Márquez is a 76 year old male with a history of aortic abdominal aneurysm, CAD, HTN, HLD, STAN presenting with altered mental status. He was found to have pneumonia, which he is currently being treated for. Mental status seems to be fluctuating throughout admission with confabulations. 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 Occult seizures are a possibility but no obvious seizure-like activity has been reported and EEG was normal. Considering meningitis/encephalitis given elevated cell count on CSF, although only mildly elevated. Overall, mental status seems to have improved over the past few days. - Continue antibiotics and acyclovir until bacterial cultures/HSV PCR has resulted - Consider repeating MRI with and without contrast and sending autoimmune encephalitis panel if mental status declines or continues to fluctuate Subjective Date/time seen: 03/21/22 11:50 Interval history: Ivan Márquez is a 76 year old male with ahistory of abdominal aortic aneurysm, CAD, HTN, HLD, obstructive sleep apnea who presented on 03/15 due to complaints of generalized weakness, cough. BP at home was in 70s/40s so EMS was called. He was brought to [place] ED where he appeared confused and was having word-finding difficulties. CT head was negative. CXR was concerning for left lower lobe pneumonia. Labs were significant for low TSH (0.285) and normal T4. He did have elevated ferritin (>2000). Other labs including B12, folate, and UA were within normal limits. Patient was started on antibiotics and was hypoxic, so he was admitted with O2 as well. Since admission, patient's mental status had been fluctuating. At baseline he is AOx4, but during admission, he was having episodes of non-sensical speech and confusion. MRI brain was obtained which showed old infarct in the right frontoparietal region. CTA brain/neck was obtained which was normal. Lumbar puncture completed which showed count 8 (64% monocytes), with normal protein and glucose. Started on acyclovir and continued on antibiotics for meningitic coverage. CSF culture negative so far. HSV PCR pending. Routine EEG normal. Patient reports he feels better today. Daughter at bedside. Review of Systems Constitutional: Constitutional: Reports no additional constitutional complaints Eyes: Eyes: Reports no additional eye complaints ENT: Reports system reviewed and no additional complaints, except as documented Cardiovascular: Cardiovascular: Reports no additional cardiovascular complaints Respiratory: Respiratory: Reports cough Gastrointestinal: Gastrointestinal: Reports no additional gastrointestinal complaints Genitourinary: Genitourinary: Reports no additional male genitourinary complaints Musculoskeletal: Musculoskeletal: Reports no additional musculoskeletal complaints Integumentary/Breasts: Skin/Breast: Reports system reviewed and no additional complaints, except as docu Neurologic: Reports as per HPI Psychiatric: Psychiatric: Reports no additional psychiatric complaints Exam Const: General: comfortable and no acute distress Eyes: General: appearance normal, both eyes and all related structures EOM: EOMs intact bilaterally Resp: Effort & Inspection: normal respiratory effort Skin: General skin exam: normal color Neuro: Other: Patient alert and oriented x 3. EOMI, face symmetric. Still some tangential speech at times, but may be baseline. Moving all extremities equally against gravity. Extrem: General: normal to inspection Psych: Mental Status: me
--- NOTE | 2022-03-21 15:14 | PM.IMPN ---
Progress Note: A&P Assessment and Plan (1) Left lower lobe pneumonia: Qualifiers: Pneumonia type: due to unspecified organism Qualified Code(s): J18.9 - Pneumonia, unspecified organism Code(s): J18.9 - Pneumonia, unspecified organism Status: Acute Assessment and Plan: Pt treated forLL pneumonia Influenza a and B negative, SARS-CoV-2 negative, urine Legionella, mycoplasma, and pneumococcal antigen all pending He is currently on 3L NC. Pt currently on IV vancomycin, cefepime and zithromax 03/21/2022 interval history: Patient was seen during the morning rounds today. Patient more awake and alert. sitting on the side of the bed is feeling much better compared to when he arrived, reviewed patient chest x-ray shows improvement patient being treated with azithromycin, Cefepime and vancomycin, patient with acute mental status change there was concerned that patient had a seizure, MRI of the brain negative for any acute injury patient had a EEG negative for seizures, patient had a spinal tap and the fluid concerning for meningitis seen by neurologist recommending continue antibiotics and acyclovir, patient remains clinically stage is more appropriate answering and his is present in the room will continue to monitor will have a PT OT evaluate the patient. (2) Acute metabolic encephalopathy: Code(s): G93.41 - Metabolic encephalopathy Status: Acute Assessment and Plan: Secondary to acute infection, hypoxemia, and acute dehydration. CTA head and neck, MRI, echo normal Neurology consulted Pt to have EEG and possible LP continue vancomycin for possible meningitis (3) Elevated ferritin: Code(s): R79.89 - Other specified abnormal findings of blood chemistry Status: Acute Assessment and Plan: . Ferritin is an acute phase reactant and may be elevated secondary to acute infection however given that this is a severely elevated we will proceed with hemochromatosis workup hemochromatosis PCR pending (4) Dehydration: Code(s): E86.0 - Dehydration Status: Acute Assessment and Plan: 03/17/22 CXR with pulmonary edema and left pleural effusion. Lasix IV started. and continued watch BMP (5) Renal insufficiency: Code(s): N28.9 - Disorder of kidney and ureter, unspecified Status: Acute Assessment and Plan: watch bmp. Further evaluation of medical records show patient has had Oncology evaluation for MGUS. (6) Pulmonary edema: Qualifiers: Chronicity: acute Qualified Code(s): J81.0 - Acute pulmonary edema Code(s): J81.1 - Chronic pulmonary edema Status: Acute Assessment and Plan: CXR with Airspace opacities in the left mid to lower and right mid lung zones, multifocal pneumonia versus asymmetric pulmonary edema. PT currently on iv lasix watch bmp and rpt CXR [place] AM (7) Elevated troponin: Code(s): R77.8 - Other specified abnormalities of plasma proteins Status: Acute Assessment and Plan: Troponin 0.042 to 0.057 Secondary to CHF exacerbation (8) Iron deficiency anemia: Qualifiers: Iron deficiency anemia type: unspecified iron deficiency Qualified Code(s): D50.9 - Iron deficiency anemia, unspecified Code(s): D50.9 - Iron deficiency anemia, unspecified Status: Acute Assessment and Plan: Transferrin low 114, serum iron 20, TIBC low 175 and iron saturation 11%. Hemoglobin 10.5. Given patient has significantly elevated ferritin level will hold supplementation at this time. (9) Gastro-esophageal reflux disease without esophagitis: Code(s): K21.9 - Gastro-esophageal reflux disease without esophagitis Status: Chronic Assessment and Plan: Continue famotidine. Plan Code status: Full code Disposition: Undetermined. Patient lives with his and will likely discharge home however he may need home health versus
[2022-03-21 15:56] LABS: Herpes Simplex Type 1 DNA PCR Not Detected (Not Detected); Herpes Simplex Type 2 DNA PCR Not Detected (Not Detected)
[2022-03-21 20:10] LABS: Legionella pneumophila Ag Ur Detected (Not Detected)
[2022-03-21] MEDS: ATORVASTATIN 20 MG TABLET PO (20:49)
[2022-03-21] MEDS: FAMOTIDINE 20 MG TABLET 40 MG PO (20:51)
[2022-03-21] MEDS: traZODone HCL 50 MG TABLET 100 MG PO (20:52)
[2022-03-22] VITALS (21 sets, daily range): BP systolic 115–135; BP diastolic 61–93; PULSE 58–80; RESP 14–20; TEMP 36.2–37; O2SAT 91–97
[2022-03-22] MEDS: ALBUTEROL SULFATE NEB 2.5 MG/3 ML INH INHALATION ×4 (01:38→22:07)
[2022-03-22] MEDS: IPRATROPIUM BR 0.02% INH SOLN 0.5 MG/2.5 ML VIAL INHALATION ×4 (01:38→22:06)
--- NOTE | 2022-03-22 02:30 | PC.NURSE ---
Care of patient transferred to Ebonie Mckay RN at 0145 on 03/22/22.
[2022-03-22] MEDS: POTASSIUM CHLORIDE 20 MEQ TABLET.ER 40 MEQ PO (09:13)
[2022-03-22] MEDS: ENOXAPARIN 40 MG/0.4 ML SYRINGE SUB-Q (09:13)
[2022-03-22] MEDS: guaiFENesin 12 HR 600 MG TABCR PO ×2 (09:14→20:44)
[2022-03-22] MEDS: LOSARTAN POTASSIUM 50 MG TABLET PO (09:14)
[2022-03-22] MEDS: OMEGA 3 POLYUNSAT FATTY ACIDS 1 GM CAP PO ×2 (09:14→16:55)
[2022-03-22] MEDS: GABAPENTIN 300 MG CAPSULE 600 MG PO ×3 (09:14→16:54)
[2022-03-22] MEDS: FUROSEMIDE INJ 40 MG/4 ML VIAL IV PUSH ×2 (09:14→16:55)
[2022-03-22] MEDS: ISOSORBIDE MONONITRATE 60 MG TAB.ER.24H PO (09:14)
[2022-03-22] MEDS: PANTOPRAZOLE 40 MG TABLET PO (09:14)
[2022-03-22] MEDS: buPROPion HCL SR (12 HR) 150 MG TAB PO ×2 (09:14→20:44)
[2022-03-22] MEDS: LIDOCAINE 5% PATCH 2 PATCH TRANSDERM (09:15)
[2022-03-22] MEDS: modafiniL (*CRX) 100 MG TABLET PO (09:18)
[2022-03-22] MEDS: oxyCODONE/ACETAMINOPHEN (*CRX) 10-325 MG TABLET 1 TAB PO ×4 (09:18→20:44)
[2022-03-22] MEDS: modafiniL (*CRX) 200 MG TABLET PO (09:18)
[2022-03-22] MEDS: ASPIRIN 81 MG ENTERIC TABLET PO (10:09)
[2022-03-22] MEDS: COLESTIPOL HCL 1 GM TABLET 2 GM PO ×2 (10:09→20:45)
--- NOTE | 2022-03-22 11:44 | PCOTNOTE ---
Attempted patient at 11:44am, currently eating lunch.
--- NOTE | 2022-03-22 14:42 | PM.IMPN ---
Progress Note: A&P Assessment and Plan (1) Left lower lobe pneumonia: Qualifiers: Pneumonia type: due to unspecified organism Qualified Code(s): J18.9 - Pneumonia, unspecified organism Code(s): J18.9 - Pneumonia, unspecified organism Status: Acute Assessment and Plan: Pt treated forLL pneumonia Influenza a and B negative, SARS-CoV-2 negative, urine Legionella, mycoplasma, and pneumococcal antigen all pending He is currently on 3L NC. Pt currently on IV vancomycin, cefepime and zithromax 03/22/2022 interval history: Patient was seen during the morning rounds today. Patient more awake and alert. sitting on the side of the bed is feeling much better compared to when he arrived, reviewed patient chest x-ray taken on 03/21 showed improvement patient being treated with azithromycin, Cefepime and vancomycin, patient with acute mental status change there was concerned that patient had a seizure, MRI of the brain negative for any acute injury patient had a EEG negative for seizures, patient had a spinal tap and the fluid concerning for meningitis seen by neurologist recommending continue antibiotics and acyclovir, patient remains clinically stable is more appropriate answering and will continue to monitor will have a PT OT evaluate the patient. (2) Acute metabolic encephalopathy: Code(s): G93.41 - Metabolic encephalopathy Status: Acute Assessment and Plan: Secondary to acute infection, hypoxemia, and acute dehydration. CTA head and neck, MRI, echo normal Neurology consulted Pt to have EEG and possible LP continue vancomycin for possible meningitis (3) Elevated ferritin: Code(s): R79.89 - Other specified abnormal findings of blood chemistry Status: Acute Assessment and Plan: . Ferritin is an acute phase reactant and may be elevated secondary to acute infection however given that this is a severely elevated we will proceed with hemochromatosis workup hemochromatosis PCR pending (4) Dehydration: Code(s): E86.0 - Dehydration Status: Acute Assessment and Plan: 03/17/22 CXR with pulmonary edema and left pleural effusion. Lasix IV started. and continued watch BMP (5) Renal insufficiency: Code(s): N28.9 - Disorder of kidney and ureter, unspecified Status: Acute Assessment and Plan: watch bmp. Further evaluation of medical records show patient has had Oncology evaluation for MGUS. (6) Pulmonary edema: Qualifiers: Chronicity: acute Qualified Code(s): J81.0 - Acute pulmonary edema Code(s): J81.1 - Chronic pulmonary edema Status: Acute Assessment and Plan: CXR with Airspace opacities in the left mid to lower and right mid lung zones, multifocal pneumonia versus asymmetric pulmonary edema. PT currently on iv lasix watch bmp and rpt CXR [place] AM (7) Elevated troponin: Code(s): R77.8 - Other specified abnormalities of plasma proteins Status: Acute Assessment and Plan: Troponin 0.042 to 0.057 Secondary to CHF exacerbation (8) Iron deficiency anemia: Qualifiers: Iron deficiency anemia type: unspecified iron deficiency Qualified Code(s): D50.9 - Iron deficiency anemia, unspecified Code(s): D50.9 - Iron deficiency anemia, unspecified Status: Acute Assessment and Plan: Transferrin low 114, serum iron 20, TIBC low 175 and iron saturation 11%. Hemoglobin 10.5. Given patient has significantly elevated ferritin level will hold supplementation at this time. (9) Gastro-esophageal reflux disease without esophagitis: Code(s): K21.9 - Gastro-esophageal reflux disease without esophagitis Status: Chronic Assessment and Plan: Continue famotidine. Plan Code status: Full code Disposition: Undetermined. Patient lives with his and will likely discharge home however he may need home health versus SNF depending
[2022-03-22] MEDS: ATORVASTATIN 20 MG TABLET PO (20:44)
[2022-03-22] MEDS: traZODone HCL 50 MG TABLET 100 MG PO (20:44)
[2022-03-22] MEDS: FAMOTIDINE 20 MG TABLET 40 MG PO (20:45)
[2022-03-23] VITALS (12 sets, daily range): BP systolic 103–135; BP diastolic 55–66; PULSE 58–78; RESP 14–20; TEMP 36.4–37.3; O2SAT 92–100
[2022-03-23] MEDS: ALBUTEROL SULFATE NEB 2.5 MG/3 ML INH INHALATION ×2 (01:36→07:58)
[2022-03-23] MEDS: IPRATROPIUM BR 0.02% INH SOLN 0.5 MG/2.5 ML VIAL INHALATION ×2 (01:36→08:00)
[2022-03-23 09:36] LABS: Vancomycin Trough 33.6 ug/mL (10.0-20.0)
--- NOTE | 2022-03-23 10:05 | PCNWS ---
Weekly nutritional screen. Patient is tolerating current regular diet with adequate intake at 50-100%. No weight loss reported. No nutritional needs at this time.
[2022-03-23] MEDS: POTASSIUM CHLORIDE 20 MEQ TABLET.ER 40 MEQ PO (10:11)
[2022-03-23] MEDS: oxyCODONE/ACETAMINOPHEN (*CRX) 10-325 MG TABLET 1 TAB PO ×4 (10:12→20:37)
[2022-03-23] MEDS: modafiniL (*CRX) 100 MG TABLET PO (10:12)
[2022-03-23] MEDS: modafiniL (*CRX) 200 MG TABLET PO (10:12)
[2022-03-23] MEDS: LIDOCAINE 5% PATCH 2 PATCH TRANSDERM (10:12)
[2022-03-23] MEDS: guaiFENesin 12 HR 600 MG TABCR PO ×2 (10:13→20:35)
[2022-03-23] MEDS: ISOSORBIDE MONONITRATE 60 MG TAB.ER.24H PO (10:13)
[2022-03-23] MEDS: GABAPENTIN 300 MG CAPSULE 600 MG PO ×3 (10:13→17:24)
[2022-03-23] MEDS: buPROPion HCL SR (12 HR) 150 MG TAB PO ×2 (10:13→20:36)
[2022-03-23] MEDS: FUROSEMIDE INJ 40 MG/4 ML VIAL IV PUSH ×2 (10:14→17:24)
[2022-03-23] MEDS: PANTOPRAZOLE 40 MG TABLET PO (10:14)
[2022-03-23] MEDS: ENOXAPARIN 40 MG/0.4 ML SYRINGE SUB-Q (10:14)
[2022-03-23] MEDS: OMEGA 3 POLYUNSAT FATTY ACIDS 1 GM CAP PO ×2 (10:15→17:24)
[2022-03-23] MEDS: ASPIRIN 81 MG ENTERIC TABLET PO (10:15)
[2022-03-23] MEDS: LOSARTAN POTASSIUM 50 MG TABLET PO (10:15)
[2022-03-23] MEDS: COLESTIPOL HCL 1 GM TABLET 2 GM PO ×2 (10:16→20:36)
--- NOTE | 2022-03-23 11:47 | PC.NURSE ---
This patient, Ivan Márquez, was transferred to [facility] on 03/23/22 at 1146. Personal belongings sent with patient. Report given to Marcela FINCH. Appropriate documentation sent with patient.
[2022-03-23 13:21] LABS: Basophils Absolute Auto 0.1 K/mm3 (0.0-0.1); Basophils Percent Auto 0.6 % (0.2-1.2); Eosinophils Absolute Auto 0.3 K/mm3 (0-0.3); Eosinophils Percent Auto 3.4 % (0-4.4); Hematocrit 34.4 % (42.0-52.0); Hemoglobin 10.4 g/dL (14.0-18.0); Immature Granulocyte Absolute 0.11 K/mm3 (0.00-0.031); Immature Granulocyte Percent A 1.4 % (0-0.5); Lymphocytes Absolute Auto 0.78 K/mm3 (0.9-3.2); Lymphocytes Percent Auto 9.8 % (18.3-44.2); Mean Corpuscular HGB Conc 30.2 g/dl (32-36); Mean Corpuscular Hemoglobin 28.5 pg (26-34); Mean Corpuscular Volume 94.2 fl (80-100); Mean Platelet Volume 11.1 fl (7.4-10.4); Monocytes Absolute Auto 0.6 K/mm3 (0.1-0.6); Monocytes Percent Auto 7.2 % (2.6-8.5); Neutrophils Absolute Auto 6.1 K/mm3 (1.3-6.7); Neutrophils Percent Auto 77.6 % (45.5-73.1); Platelet Count Result 350 k/mm3 (150-375); Red Blood Count 3.65 M/mm3 (4.6-6.20); Red Cell Distribution Width 14.7 % (11.5-14.5); White Blood Count 7.9 K/mm3 (4.5-10.0)
[2022-03-23 13:32] LABS: INR 1.3; Prothrombin Time 15.6 Seconds (11.1-14.7)
[2022-03-23 13:38] LABS: Alanine Aminotransferase 48 U/L (6-50); Albumin Level 3.2 g/dL (3.5-5.1); Alkaline Phosphatase 91 U/L (38-126); Anion Gap 7 mmol/L (8-16); Aspartate Amino Transferase 55 U/L (17-59); Bilirubin,Total 0.7 mg/dL (0.2-1.3); Blood Urea Nitrogen 23 mg/dL (9-20); Calcium 8.5 mg/dL (8.4-10.2); Carbon Dioxide 29 mmol/L (22-30); Chloride 99 mmol/L (98-107); Estimated CRCL calculation 44 ml/min; Estimated Glomerular Filt Rate 49; Glucose 126 mg/dL (65-110); Magnesium 2.4 mg/dL (1.6-2.3); Potassium 4.7 mmol/L (3.4-5.0); Sodium 135 mmol/L (137-145)
--- NOTE | 2022-03-23 17:55 | P.PNIM_ITS ---
Progress Note: A&P Assessment and Plan (1) Left lower lobe pneumonia: Qualifiers: Pneumonia type: due to unspecified organism Qualified Code(s): J18.9 - Pneumonia, unspecified organism Code(s): J18.9 - Pneumonia, unspecified organism Status: Acute Assessment and Plan: Pt treated forLL pneumonia Influenza a and B negative, SARS-CoV-2 negative, urine Legionella, mycoplasma, and pneumococcal antigen all pending He is currently on 3L NC. Pt currently on IV vancomycin, cefepime and zithromax 03/23/2022 interval history: Patient was seen during the morning rounds today. Patient more awake and alert. sitting on the side of the bed is feeling much better compared to when he arrived, reviewed patient chest x-ray taken on 03/21 showed improvement patient being treated with azithromycin, Cefepime and vancomycin, blood culture no growth so far patient with acute mental status change there was concerned that patient had a seizure, MRI of the brain negative for any acute injury patient had a EEG negative for seizures, patient had a spinal tap and the fluid concerning for meningitis seen by neurologist recommending continue antibiotics and today discussed with pharmacy id HSV culture is negative will stop acyclovir, patient remains clinically stable is more appropriate answering and will continue to monitor will have a PT OT evaluate the patient. (2) Acute metabolic encephalopathy: Code(s): G93.41 - Metabolic encephalopathy Status: Acute Assessment and Plan: Secondary to acute infection, hypoxemia, and acute dehydration. CTA head and neck, MRI, echo normal Neurology consulted Pt to have EEG and possible LP continue vancomycin for possible meningitis (3) Elevated ferritin: Code(s): R79.89 - Other specified abnormal findings of blood chemistry Status: Acute Assessment and Plan: . Ferritin is an acute phase reactant and may be elevated secondary to acute infection however given that this is a severely elevated we will proceed with hemochromatosis workup hemochromatosis PCR pending (4) Dehydration: Code(s): E86.0 - Dehydration Status: Acute Assessment and Plan: 03/17/22 CXR with pulmonary edema and left pleural effusion. Lasix IV started. and continued watch BMP (5) Renal insufficiency: Code(s): N28.9 - Disorder of kidney and ureter, unspecified Status: Acute Assessment and Plan: watch bmp. Further evaluation of medical records show patient has had Oncology evaluation for MGUS. (6) Pulmonary edema: Qualifiers: Chronicity: acute Qualified Code(s): J81.0 - Acute pulmonary edema Code(s): J81.1 - Chronic pulmonary edema Status: Acute Assessment and Plan: CXR with Airspace opacities in the left mid to lower and right mid lung zones, multifocal pneumonia versus asymmetric pulmonary edema. PT currently on iv lasix watch bmp and rpt CXR [place]ina AM (7) Elevated troponin: Code(s): R77.8 - Other specified abnormalities of plasma proteins Status: Acute Assessment and Plan: Troponin 0.042 to 0.057 Secondary to CHF exacerbation (8) Iron deficiency anemia: Qualifiers: Iron deficiency anemia type: unspecified iron deficiency Qualified Code(s): D50.9 - Iron deficiency anemia, unspecified Code(s): D50.9 - Iron deficiency anemia, unspecified Status: Acute Assessment and Plan: Transferrin low 114, serum iron 20, TIBC low 175 and iron saturation 11%. Hemoglobin 10.5. Given patient martinez
[2022-03-23] MEDS: FAMOTIDINE 20 MG TABLET 40 MG PO (20:35)
[2022-03-23] MEDS: traZODone HCL 50 MG TABLET 100 MG PO (20:36)
[2022-03-23] MEDS: ATORVASTATIN 20 MG TABLET PO (20:38)
--- NOTE | 2022-03-23 22:31 | PCRCNOTE ---
Window of time for administration has passed. See next scheduled administration.
--- NOTE | 2022-03-24 03:47 | PC.NURSE ---
Pt cooperative with care. Pt participated and contributed to plan of care for the shift. Pt resting comfortably. Pt given IV antibiotics. Pt has no complaints and expresses no needs at this time. Will continue to monitor pt.
[2022-03-24 06:00] VITALS: BP 125/70; PULSE 87; RESP 20; TEMP 36.4; O2SAT 93
[2022-03-24 06:47] LABS: Estimated CRCL calculation 41 ml/min; Estimated Glomerular Filt Rate 45
[2022-03-24 07:00] LABS: Vancomycin Trough 22.1 ug/mL (10.0-20.0)
[2022-03-24 07:59] LABS: Varicella IgM Antibody <=0.90 (<=0.90)
[2022-03-24 08:31] LABS: Hematocrit 33.9 % (42.0-52.0); Hemoglobin 10.5 g/dL (14.0-18.0); Mean Corpuscular Hemoglobin 28.8 pg (26-34); Mean Corpuscular Volume 93.1 fl (80-100); Mean Platelet Volume 11.3 fl (7.4-10.4); Platelet Count Result 433 k/mm3 (150-375); Red Blood Count 3.64 M/mm3 (4.6-6.20); Red Cell Distribution Width 14.6 % (11.5-14.5); White Blood Count 8.1 K/mm3 (4.5-10.0)
[2022-03-24 09:00] VITALS: PULSE 85; RESP 16
[2022-03-24] MEDS: IPRATROPIUM BR 0.02% INH SOLN 0.5 MG/2.5 ML VIAL INHALATION ×2 (09:00→14:04)
[2022-03-24] MEDS: ALBUTEROL SULFATE NEB 2.5 MG/3 ML INH INHALATION ×2 (09:00→14:04)
[2022-03-24 09:06] VITALS: O2SAT 92
[2022-03-24 09:11] VITALS: PULSE 90; RESP 16
[2022-03-24 09:11] LABS: Magnesium 2.4 mg/dL (1.6-2.3)
[2022-03-24] MEDS: guaiFENesin 12 HR 600 MG TABCR PO (09:48)
[2022-03-24] MEDS: buPROPion HCL SR (12 HR) 150 MG TAB PO (09:48)
[2022-03-24] MEDS: OMEGA 3 POLYUNSAT FATTY ACIDS 1 GM CAP PO (09:49)
[2022-03-24] MEDS: PANTOPRAZOLE 40 MG TABLET PO (09:49)
[2022-03-24] MEDS: LOSARTAN POTASSIUM 50 MG TABLET PO (09:49)
[2022-03-24] MEDS: COLESTIPOL HCL 1 GM TABLET 2 GM PO (09:49)
[2022-03-24] MEDS: GABAPENTIN 300 MG CAPSULE 600 MG PO ×2 (09:49→13:04)
[2022-03-24] MEDS: ENOXAPARIN 40 MG/0.4 ML SYRINGE SUB-Q (09:49)
[2022-03-24] MEDS: FUROSEMIDE INJ 40 MG/4 ML VIAL IV PUSH (09:49)
[2022-03-24] MEDS: POTASSIUM CHLORIDE 20 MEQ TABLET.ER 40 MEQ PO (09:50)
[2022-03-24] MEDS: ISOSORBIDE MONONITRATE 60 MG TAB.ER.24H PO (09:50)
[2022-03-24] MEDS: ASPIRIN 81 MG ENTERIC TABLET PO (09:50)
[2022-03-24] MEDS: modafiniL (*CRX) 200 MG TABLET PO (10:02)
[2022-03-24] MEDS: modafiniL (*CRX) 100 MG TABLET PO (10:02)
[2022-03-24] MEDS: oxyCODONE/ACETAMINOPHEN (*CRX) 10-325 MG TABLET 1 TAB PO ×2 (10:02→13:04)
[2022-03-24 10:39] LABS: Anion Gap 11 mmol/L (8-16); Blood Urea Nitrogen 24 mg/dL (9-20); Carbon Dioxide 30 mmol/L (22-30); Chloride 95 mmol/L (98-107); Estimated CRCL calculation 41 ml/min; Estimated Glomerular Filt Rate 45; Glucose 96 mg/dL (65-110); Potassium 4.8 mmol/L (3.4-5.0); Sodium 136 mmol/L (137-145)
[2022-03-24 14:05] VITALS: PULSE 87; RESP 16
[2022-03-24 14:11] VITALS: PULSE 81; RESP 16
--- NOTE | 2022-03-24 14:25 | PM.DS ---
DS: Admitting Diagnosis Discharge Date 03/24/2022 Admitting Diagnosis weakness DS: Discharge Diagnosis Discharge Diagnosis (1) Left lower lobe pneumonia: Qualifiers: Pneumonia type: due to unspecified organism Qualified Code(s): J18.9 - Pneumonia, unspecified organism Code(s): J18.9 - Pneumonia, unspecified organism Status: Acute Assessment and Plan: Pt treated forLL pneumonia Influenza a and B negative, SARS-CoV-2 negative, urine Legionella, mycoplasma, and pneumococcal antigen all pending He is currently on 3L NC. Pt currently on IV vancomycin, cefepime and zithromax 03/23/2022 interval history: Patient was seen during the morning rounds today. Patient more awake and alert. sitting on the side of the bed is feeling much better compared to when he arrived, reviewed patient chest x-ray taken on 03/21 showed improvement patient being treated with azithromycin, Cefepime and vancomycin, blood culture no growth so far patient with acute mental status change there was concerned that patient had a seizure, MRI of the brain negative for any acute injury patient had a EEG negative for seizures, patient had a spinal tap and the fluid concerning for meningitis seen by neurologist recommending continue antibiotics and today discussed with pharmacy id HSV culture is negative will stop acyclovir, patient remains clinically stable is more appropriate answering and will continue to monitor will have a PT OT evaluate the patient. (2) Acute metabolic encephalopathy: Code(s): G93.41 - Metabolic encephalopathy Status: Acute Assessment and Plan: Secondary to acute infection, hypoxemia, and acute dehydration. CTA head and neck, MRI, echo normal Neurology consulted Pt to have EEG and possible LP continue vancomycin for possible meningitis (3) Elevated ferritin: Code(s): R79.89 - Other specified abnormal findings of blood chemistry Status: Acute Assessment and Plan: . Ferritin is an acute phase reactant and may be elevated secondary to acute infection however given that this is a severely elevated we will proceed with hemochromatosis workup hemochromatosis PCR pending (4) Dehydration: Code(s): E86.0 - Dehydration Status: Acute Assessment and Plan: 03/17/22 CXR with pulmonary edema and left pleural effusion. Lasix IV started. and continued watch BMP (5) Renal insufficiency: Code(s): N28.9 - Disorder of kidney and ureter, unspecified Status: Acute Assessment and Plan: watch bmp. Further evaluation of medical records show patient has had Oncology evaluation for MGUS. (6) Pulmonary edema: Qualifiers: Chronicity: acute Qualified Code(s): J81.0 - Acute pulmonary edema Code(s): J81.1 - Chronic pulmonary edema Status: Acute Assessment and Plan: CXR with Airspace opacities in the left mid to lower and right mid lung zones, multifocal pneumonia versus asymmetric pulmonary edema. PT currently on iv lasix watch bmp and rpt CXR [place] AM (7) Elevated troponin: Code(s): R77.8 - Other specified abnormalities of plasma proteins Status: Acute Assessment and Plan: Troponin 0.042 to 0.057 Secondary to CHF exacerbation (8) Iron deficiency anemia: Qualifiers: Iron deficiency anemia type: unspecified iron deficiency Qualified Code(s): D50.9 - Iron deficiency anemia, unspecified Code(s): D50.9 - Iron deficiency anemia, unspecified Status: Acute Assessment and Plan: Transferrin low 114, serum iron 20, TIBC low 175 and iron saturation 11%. Hemoglobin 10.5. Given patient has significantly elevated ferritin level will hold supplementation at this time. (9) Gastro-esophageal reflux disease without esophagitis: Code(s): K21.9 - Gastro-esophageal reflux disease without esophagitis Status: Chronic Assessment and Plan: Continue fa
== END 2022-03-24 15:25 | disposition home health service (06) | DRG 177 ==
LOC: ANHED 18:45 → ANH3MEDSUR 19:40 → ANHIMU 03-17 06:06 → ANH3MEDSUR 03-25 09:51 → ANHIMU 03-25 09:51
PROVIDERS: Emergency Medicine; Hospitalist; Internal Medicine; Nurse Practitioner Family; Physician Assistant; Student in an Organized Health Care Education/Training Program; Admitting Provider Internal Medicine; Emergency Provider Emergency Medicine; PCP Family Medicine Adolescent Medicine; Visit Provider Family Medicine
DX: A48.1 Legionnaires' disease (principal); G93.41 Metabolic encephalopathy; I50.33 Acute on chronic diastolic (congestive) heart failure; J81.1 Chronic pulmonary edema; I11.0 Hypertensive heart disease with heart failure; I71.40 Abdominal aortic aneurysm, without rupture, unspecified; I25.119 Atherosclerotic heart disease of native coronary artery with unspecified angina pectoris; D50.9 Iron deficiency anemia, unspecified; K21.9 Gastro-esophageal reflux disease without esophagitis; E86.0 Dehydration; E78.00 Pure hypercholesterolemia, unspecified; N28.9 Disorder of kidney and ureter, unspecified; R09.02 Hypoxemia; R77.8 Other specified abnormalities of plasma proteins; G47.33 Obstructive sleep apnea (adult) (pediatric); G89.29 Other chronic pain; M54.9 Dorsalgia, unspecified; F17.210 Nicotine dependence, cigarettes, uncomplicated; Z20.822 Contact with and (suspected) exposure to COVID-19; Z90.49 Acquired absence of other specified parts of digestive tract; Z90.5 Acquired absence of kidney; Z95.5 Presence of coronary angioplasty implant and graft
CPT/HCPCS: 36415; 36600; 62328; 70450; 70496; 70498; 70553; 71045; 71046; 80048; 80053; 80061; 80202; 81001; 81256; 82140; 82375; 82550; 82553; 82565; 82607; 82728; 82746; 82805; 82945; 82948; 83050; 83540; 83550; 83605; 83615; 83735; 83880; 84132; 84157; 84425; 84439; 84443; 84466; 84480; 84484; 85025; 85027; 85055; 85610; 85730; 86140; 86738; 86787; 87040; 87070; 87081; 87102; 87205; 87206; 87449; 87529; 87636; 87804; 87899; 89051; 92610; 93005; 93306; 94640; 95816; 96365; 96368; 97110; 97116; 97161; 97166; 97530; 97535; 99285; A9270; A9577; J0131; J0133; J0456; J0692; J0696; J1650; J1940; J3370; J7030; J7060; Q9967

== ENCOUNTER 2023-12-27 14:34 | Outpatient (CLI) | payer MEDICARE, SELFPAY ==
--- NOTE | ~2023-12-27 | CT_ITS ---
EXAMINATION: CT abdomen pelvis wo con DATE: 12/27/2023 15:06 INDICATION: Abdominal aortic aneurysm without rupture. TECHNIQUE: Computed tomography (CT) of the abdomen and pelvis was performed without intravenous contr ast. Automated exposure control and iterative reconstruction technique were employed. The dose-length product was 915.77 mGy-cm. COMPARISON: CT abdomen and pelvis 02/04/2022 FINDINGS: The visualized portions of the lung bases demonstrate mild atelectasis. No pleural effusion . The heart size is normal. There are coronary artery calcifications. No pericardial effusion. The li aaron, spleen, pancreas, and adrenal glands are normal. There are changes of cholecystectomy. Right kid baltazar is absent. There are cysts in left kidney measuring up to 3.4 cm. There is no urolithiasis. There are scattered diverticula in the colon. There is mild wall thickening of sigmoid colon, likely chron ic diverticulitis. There is calcified atherosclerosis of the aorta and many of the other arteries. 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 There is a supraumbilical ventral hernia conta ining fat. There are bilateral inguinal hernias containing fat. There are no pathologically enlarged lymph nodes. There is no free intraperitoneal fluid. There are bridging endplate osteophytes at multi ple levels in the spine, consistent with diffuse idiopathic skeletal hyperostosis (DISH). There is mo derate lumbar spondylosis. IMPRESSION: 1. 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 Reviewed, dictated and finalized at location A.
== END 2023-12-27 14:35 | disposition home or self-care (01) ==
PROVIDERS: PCP Family Medicine Adolescent Medicine; Visit Provider Family Medicine Adolescent Medicine
DX: I71.43 Infrarenal abdominal aortic aneurysm, without rupture (principal)
CPT/HCPCS: 74176

== ENCOUNTER 2024-01-03 09:35 | Outpatient (CLI) | payer MEDICARE, SELFPAY ==
[2024-01-03 10:18] LABS: Add Urine Microscopic? NO; Appearance Urine Clear (Clear); Bilirubin Urine Negative (Negative); Blood Urine Negative (Negative); Color Urine Yellow (Yellow); Glucose Urine UA Negative (Negative); Ketones Urine Negative (Negative); Leukocyte Esterase Ur Negative LEU/UL (Negative); Nitrate Urine Negative (Negative); Protein Urine Negative (Negative); Urobilinogen Urine 0.2 mg/dL (<2.0); pH Urine 5.5 (5.0-9.0)
[2024-01-03 10:40] LABS: Albumin Level 3.7 g/dL (3.5-5.1); Anion Gap 8 mmol/L (4-12); Blood Urea Nitrogen 24 mg/dL (9-20); Carbon Dioxide 28 mmol/L (22-30); Chloride 103 mmol/L (98-107); Estimated Glomerular Filt Rate 37; Glucose 115 mg/dL (65-110); Phosphorus 3.5 mg/dL (2.5-4.5); Potassium 4.4 mmol/L (3.4-5.0); Sodium 139 mmol/L (137-145)
[2024-01-03 10:42] LABS: Creatinine Urine 40.8 mg/dL; Total Protein Urine Random 7 mg/dL; Ur Ttl Prot Creatinine Ratio 0.17 mg/mg (0-0.20)
== END 2024-01-03 09:36 | disposition home or self-care (01) ==
PROVIDERS: PCP Family Medicine Adolescent Medicine
DX: Z13.89 Encounter for screening for other disorder (principal); N17.9 Acute kidney failure, unspecified; N18.30 Chronic kidney disease, stage 3 unspecified
CPT/HCPCS: 36415; 80069; 81003; 82570; 84156

== ENCOUNTER 2024-04-22 10:30 | Outpatient (CLI) | payer MEDICARE, SELFPAY ==
--- NOTE | ~2024-04-22 | MR_ITS ---
EXAMINATION: MR knee LT wo con DATE: 04/22/2024 11:29 INDICATION: generalized left knee pain x2yrs, no trauma/ca TECHNIQUE: Magnetic resonance imaging (MRI) of the left knee was performed without intravenous contra st. Sequences included axial PD-weighted FS FSE, coronal PD-weighted FSE and PD-weighted FS FSE, sagi ttal PD-weighted FSE, and sagittal T2-weighted FS FSE. COMPARISON: 10/09/2015 FINDINGS: Medial compartment: Complex tear of the body of the medial meniscus. Apical tear of the posterior horn. Extensive degener ative signal change in the meniscus. Full-thickness extensive cartilage loss in the medial compartmen t. Moderate osteophytosis. Lateral compartment: Vertically oriented signal of the root of the meniscus with an adjacent meniscal ossification. Modera te diffuse cartilage thinning. Moderate osteophytosis. Patellofemoral compartment: Mild diffuse cartilage thinning and signal abnormality. Moderate osteophytosis. Quadriceps and patell ar enthesopathy. Ligaments and tendons: The ACL is torn. Thickening of the MCL. The LCL and PCL are intact. High signal within portions of th e PCL. Fluid: Large joint joint effusion. Small Galeas's cyst which contains a loose body. 15 mm loose body in the j oint recess posterior to the femur, adjacent to a large likely cystic structure, likely synovial cyst . Osseous/other: No suspicious focal or diffuse marrow signal. IMPRESSION: Tears of the body and posterior horn of the medial meniscus. Likely vertically oriented meniscal root ligament tear of the lateral meniscus. Full-thickness ACL tear. Chronic MCL tear. Chronic partial PCL tear. Tricompartmental osteoarthritis, severe in the medial compartment. Large joint effusion with loose bodies. Reviewed, dictated and finalized at location K. 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
== END 2024-04-22 10:31 | disposition home or self-care (01) ==
LOC: MICIMG 10:30
PROVIDERS: Visit Provider Nurse Practitioner Family
DX: M25.462 Effusion, left knee (principal); M17.12 Unilateral primary osteoarthritis, left knee; S83.512A Sprain of anterior cruciate ligament of left knee, initial encounter; S83.242A Other tear of medial meniscus, current injury, left knee, initial encounter; X58.XXXA Exposure to other specified factors, initial encounter
CPT/HCPCS: 73721

== ENCOUNTER 2024-06-13 12:27 | Outpatient (CLI) | payer MEDICARE, SELFPAY ==
--- NOTE | ~2024-06-13 | XR_ITS ---
EXAMINATION: XR chest 2V DATE: 06/13/2024 12:40 INDICATION: Dyspnea TECHNIQUE: frontal and lateral views of the chest were obtained. COMPARISON: Chest radiograph dated 03/24/2022 and 03/21/2022 FINDINGS: Persistent mild elevation of the posterior left hemidiaphragm. No airspace opacities, pulmonary edema , pleural effusion or pneumothorax. The cardiomediastinal silhouette is normal. Mild thoracic spondyl osis with chronic mild anterior wedging of a few mid thoracic vertebral bodies. IMPRESSION: 1. Chronic mild elevation the left hemidiaphragm. No acute cardiopulmonary disease. Reviewed, dictated and finalized at location A. TIFICATION AND RECORDS COMMANDER IMPRESSION: 1. Chronic mild elevation the left hemidiaphragm. No acute cardiopulmonary dise ase.
== END 2024-06-13 12:28 | disposition home or self-care (01) ==
LOC: MICIMG 12:29
PROVIDERS: PCP Internal Medicine Interventional Cardiology; Visit Provider Family Medicine Adolescent Medicine
DX: J98.6 Disorders of diaphragm (principal)
CPT/HCPCS: 71046

== ENCOUNTER 2024-12-16 07:43 | Emergency (ER) | payer MEDICARE, SELFPAY ==
--- OUTSIDE RECORDS SUMMARY | 2024-12-16 07:46 | XMS_ITS | Clinical Summary ---
Author Organization [facility] [employer] Address [address] [place] [address] Care Team Providers Care Site Promotion Agent Name Role Phone Unavailable Primary Care Provider Unavailabl e Source Comments [facility] [employer],non-owned Affiliates and Associated Physician Practices is amultiple site organization consisting of ambulatory clinics and hospital sitesin [place], [place], [place] and [place]. This disclosure is being madepursuant to the Care Everywhere program and may not contain all information available regarding this patient. Last updated 18.[employer] Allergies No known active allergies Medications * Be aware that medications may not be up to date on this document. Alwaysverify current medications with the patient. 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 Gender Identity Not on file Sexual Orientation Not on file Last Filed Vital Signs Vital Sign Reading Time Taken Comments Blood Pressure 171/75 03/26/2017 11:00 PM VB NET PROGRAMMER Pulse 49 03/26/2017 11:00 PM VB NET PROGRAMMER Temperature 36.7 C (98.1 F) 03/26/2017 8:45 PM VB NET PROGRAMMER Respiratory Rate 16 03/26/2017 11:00 PM VB NET PROGRAMMER Oxygen Saturation 95% 03/26/2017 11:00 PM VB NET PROGRAMMER Inhaled Oxygen Concentration - - Weight 90.9 kg (200 lb 6.4 oz) 03/26/2017 8:45 P M VB NET PROGRAMMER Height 182.9 cm (6') 03/26/2017 8:45 PM VB NET PROGRAMMER Body Mass Index 27.18 03/26/2017 8:45 PM VB NET PROGRAMMER Plan of Treatment Health Maintenance Due Date Last Done Comments DTAP/TDAP/TD VACCINES (1 - Tdap) 08/29/1963 PNEUMOCOCCAL VACCINE 50+ (1 of 1 - PCV) 1994 ZOSTER VACCINE (1 of 2) 1994 Respiratory Syncytial Virus (RSV) Vaccine Pt: or over 60 yrs (1 - 1-dose 75+ series) 08/29/2019 COVID-19 VACCINE (1 - 2023-2 5 season) 2024 DEPRESSION SCREENING 05/10/2024 INFLUENZA VACCINE (#1) 2025 HEPATITIS B VACCINE Aged Out No longe r eligible based on patient's age to complete this topic HIB VACCINE Aged Out No longer eligi ble based on patient's age to complete this topic HPV VACCINE Aged Out No longer eligi ble based on patient's age to complete this topic MENINGOCOCCAL (Group B) VACC INE SHARED DECISION-MAKING Aged Out No longer eligibl e based on patient's age to complete this topic MENINGOCOCCAL GROUPS A/C/Y/W VACCINE Aged Out No longer eligible b ased on patient's age to complete this topic Insurance [place] [address] [place] [phone]
--- OUTSIDE RECORDS SUMMARY | 2024-12-16 07:46 | XMS_ITS | Encounter Summary ---
Author Organization [facility] Address [address] 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
--- OUTSIDE RECORDS SUMMARY | 2024-12-16 07:46 | XMS_ITS | Encounter Summary ---
Author Organization [facility] Address [address] [place] [address] Phone Care Team Providers Care Sales Program Coordinator Name Role Phone Jacob Bowen MD Primary Care Prov ider Shahid Khan MD Unavailable Encounter Details Date Type Department Care Team (Late st Contact Info) Description 04/05/2019 Orders Only [facility] Scanning, Provider Social History Tobacco Use Types Packs/Day Years Used Date Smoking Tobacco: Every Day Cigarettes Smokeless Tobacco: Never Alcohol Use Standard Drinks/Week Comments No 0 (1 standard drink = 0.6 oz pur e alcohol) Sex and Gender Information Value Date Recorded Sex Assigned at Not on file Legal Sex Male 2:02 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 Gender Identity Male 05/20/2020 4:45 PM AIRCRAFT 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 Sexual Orientation Straight 09/11/2019 5: 16 PM CDT documented as of this encounter Plan of Treatment Not on file documented as of this encounter Procedures Procedure Name Priority Date/Time Associated Diagnosis Comments SCAN - LABS 04/05/2019 documented in this encounter Results * SCAN - LABS (04/05/2019) us Provider Scanning Final Result documented in this encounter Visit Diagnoses Not on filedocumented in this encounter Care Teams Sales Program Coordinator Relationship Specialty Start Date End Date Jacob Bowen MD [address] [place] [address] PCP - General 01/14/17 Shahid Khan MD [address] [place] [address] Referring Physician Cardiovascular Disease 02/05/20 TIFFANIE PEÑA III, [address] [address] Referring Physician Emergency Medicine 02/07/19 documented as of this encounter
--- OUTSIDE RECORDS SUMMARY | 2024-12-16 07:46 | XMS_ITS | Encounter Summary ---
Author Organization [facility] Address [address] [place] [address] Phone Care Team Providers Care Machinist Bench Name Role Phone Jacob Bowen MD Primary Care Prov ider Shahid Khan MD Unavailable Encounter Details Date Type Department Care Team (Latest Contact Info) Description 01/03/2024 Orders Only [facility] Scanning, Provider Social History Tobacco Use Types Packs/Day Years Used Date Smoking Tobacco: Former Cigarettes Q uit: 02/05/2020 Smokeless Tobacco: Never Alcohol Use Standard Drinks/Week Comments Not Currently 0 (1 standard drink = 0.6 oz pur e alcohol) rare Sex and Gender Information Value Date Recorded Sex Assigned at Not on file Legal Sex Male 2:02 AM COMPUTER EDUCATION TEACHER Gender Identity Male 05/20/2020 4:45 PM COMPUTER EDUCATION TEACHER Sexual Orientation Straight 09/11/2019 5: 16 PM CDT documented as of this encounter Plan of Treatment Not on file documented as of this encounter Procedures Procedure Name Priority Date/Time Associated Diagnosis Comments SCAN - LABS 01/03/2024 documented in this encounter Results * SCAN - LABS (01/03/2024) us Provider Scanning Edited Result - Final documented in this encounter Visit Diagnoses Not on filedocumented in this encounter Care Teams Machinist Bench Relationship Specialty Start Date End Date Jacob Bowen MD [address] [place] [address] PCP - General 01/14/17 Shahid Khan MD [address] [place] [address] Referring Physician Cardiovascular Disease 02/05/20 documented as of this encounter
--- OUTSIDE RECORDS SUMMARY | 2024-12-16 07:46 | XMS_ITS | Encounter Summary ---
Author Organization [facility] Address [address] [address] Care Team Providers Care Delivery Tech Name Role Phone Jacob Bowen MD Primary Care Prov ider Jacob Bowen MD Primary Care Prov ider Veronica Jackson Primary Care Provider Jacob Tilley MD Primary Care Prov ider Shahid Khan MD Unavailable Encounter Details Date Type Department Care Team (Late st Contact Info) Description 03/23/2016 Orders Only [facility] ProviderGlenn MD [address] [place] [id number] Social History Tobacco Use Types Packs/Day Years Used Date Smoking Tobacco: Never Assessed Sex and Gender Information Value Date Recorded Sex Assigned at Not on file 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 Historical Provider [facility] MICHELE MICHAELS Final Result documented in this encounter Visit Diagnoses Not on filedocumented in this encounter Care Teams Delivery Tech Relationship Specialty Start Date End Date Jacob Bowen MD [address] [place] [address] PCP - General 08/07/16 09/20/16 Jacob Bowen MD [address] [place] [id number] PCP - General 12/19/15 08/06/16 Veronica Jackson [address] [place] [id number] PCP - General 09/21/16 01/13/17 Jacob Bowen MD [address] [place] [id number] PCP - General 01/14/17 Shahid Khan MD [address] [place] [id number] Referring Physician Cardiovascular Disease 02/05/20 TIFFANIE PEÑA III, [address] [address] Referring Physician Emergency Medicine 02/07/19 documented as of this encounter
--- OUTSIDE RECORDS SUMMARY | 2024-12-16 07:46 | XMS_ITS | Clinical Summary ---
Author Organization [facility] Address [address] 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
--- OUTSIDE RECORDS SUMMARY | 2024-12-16 07:46 | XMS_ITS | Clinical Summary ---
Author Organization [facility] Address [address] [place] [address] Care Team Providers [employer] Supervisor Name Role Phone Jacob Bowen MD Primary Care Prov ider Shahid Khan MD Unavailable Allergies Active Allergy Reactions Criticality Noted Date Comments Ticagrelor Shortness of breath High 03/13/2019 Medications omega-3 fatty acids (LOVAZA) 1 gram capsuleIndicatio ns:hypertriglyce ridemia Take 1 capsule (1 g total) by mouth 2 (two) times a day 8 Active atorvastatin (LIPITOR) 20 mg tabletIndication s:hyperlipidemia Take 1 tablet (20 mg total) by mouth nightly Active gabapentin (NEURONTIN) 600 mg tabletIndication s:Neuropathic Pain Take 1 tablet (600 mg total) by mouth 4 (four) times a day Active isosorbide mononitrate ER (IMDUR) 60 mg 24 hr tabletIndication s:prevention of anginal pain in coronary artery disease Take 1 tablet (60 mg total) by mouth every morning Active modafinil (PROVIGIL) 200 mg tabletIndication s:Sleepiness Due To Obstructive Sleep Apnea Take 0.5 tablets (100 mg total) by mouth 2 (two) times a day Active traZODone (DESYREL) 100 mg tablet Take 0.5 tablets (50 mg total) by mouth nightly as needed for sleep May give in addition to scheduled 50 mg dose, if needed for sleep Active aspirin 81 mg enteric coated tabletIndication s:cardiovascular disease Take 1 tablet (81 mg total) by mouth daily 30 tablet 9 04/03/20 48 Active buPROPion SR (WELLBUTRIN SR) 150 mg 12 hr tablet Take 1 tablet (150 mg total) by mouth 2 (two) times a day 0 Active etodolac (LODINE) 300 mg capsule Take 1 capsule (300 mg total) by mouth every 8 (eight) hours 0 Active testosterone 20.25 mg/1.25 gram (1.62 %) gel in metered-dose pump Apply topically every morning 0 Active multivitamin capsule Take 1 capsule by mouth every morning Active glucosamine/alcira dr armstrong A sod (glucosamine-cho ndroitin) 167-133 mg capsule Take by mouth 2 (two) times a day Active losartan (COZAAR) 100 mg tabletIndication s:hypertension Take 1 tablet (100 mg total) by mouth every morning Active oxyCODONE-acetam inophen (PERCOCET) 10-325 mg per tablet [address] (PROTONIX) 40 mg EC tablet Take 1 tablet (40 mg total) by mouth daily 30 tablet 2 1 06/19/19 99 Active colestipoL (COLESTID) 1 gram tablet TAKE 2 TABLETS BY MOUTH TWICE DAILY 360 tablet 2 2 Active sildenafiL (VIAGRA) 100 mg tablet 2 Active famotidine (PEPCID) 40 mg tablet TAKE 1 TABLET(40 MG) BY MOUTH DAILY 90 tablet 2 Active potassium chloride ER 20 mEq CR tablet TAKE 2 TABLETS BY MOUTH DAILY AT 8 AM 3 Active sertraline (ZOLOFT) 50 mg tablet Take 1 tablet (50 mg total) by mouth daily 3 Active amLODIPine (NORVASC) 5 mg tablet Take 1 tablet (5 mg total) by mouth daily 3 Active ketoconazole (NIZORAL) 2 % cream APPLY TOPICALLY TO THE AFFECTED AREA TWICE DAILY 3 Active sertraline (ZOLOFT) 100 mg tablet 3 Active hydrALAZINE (APRESOLINE) 50 mg tablet TAKE 2 TABLET BY MOUTH THREE TIMES DAILY 540 tablet 1 3 Active lidocaine (LIDODERM) 5 % PLACE 1 PATCH TO MOST PAINFUL AREA FOR 12 HOURS, THEN REMOVE FOR 12 HOURS 90 patch 4 Active Ventolin HFA 90 mcg/actuation inhaler INHALE 2 PUFFS BY MOUTH EVERY 6 HOURS 4 Active azithromycin (ZITHROMAX) 500 mg tablet Take 1 tablet (500 mg total) by mouth daily 4 Active metoprolol XL (TOPROL-XL) 25 mg extended release tablet Take 1 tablet (25 mg total) by mouth daily 4 Active predniSONE (DELTASONE) 20 mg tablet TAKE 2 TABLETS BY MOUTH DAILY FOR 5 DAYS 4 Active metoprolol XL (TOPROL-XL) 50 mg extended release tablet Take 1 tablet (50 mg total) by mouth daily 4 Active nitroglycerin (NITROSTAT) 0.3 mg SL tablet 4 Active furosemide (LASIX) 80 mg tablet Take 0.5 tablets (40 mg total) by mouth daily 5 Active fluticasone propionate (CUTIVATE) 0.05 % cream 5 Active ALPRAZolam (XANAX) 0.5 mg tablet TAKE 1 TABLET BY MOUTH 45 MINUTES BEFORE PROCEDURE 5 Active Active Problems Problem Noted Date Diagnosed Date CKD (chronic kidney disease) stage 3, GFR 30-59 ml/min 09/26/2024 MGUS (monoclonal gammopathy of unknown significa nce) 03/07/2021 Anemia in stage 3 chronic kidney disease 021 Renal osteodystrophy 07/16/2020 Mixed hyperlipidemia 04/01/2020 Basal cell carcinoma (BCC) of skin of nose 02/04 Overview (02/05/2020): Added automatically from request for surgery [id number] Planned postoperative wound closure 02/05/2020 Overview (02/05/2020): Added automatically from request for surgery [id number] Isolated proteinuria without specific morphologi c lesion 09/13/2019 SOB (shortness of breath) 02/23/2019 Dizziness 02/23/2019 History of dry mouth 08/23/2017 Hypersomnia 04/06/2017 Obstructive sleep apnea, adult 04/06/2017 Chronic coronary artery disease 04/05/2017 Osteoarthritis 04/05/2017 Central retinal artery occlusion 04/05/2017 Hypertension 04/05/2017 Disturbance in sleep behavior 04/05/2017 Sleep disturbance 04/05/2017 Clostridium difficile infection 01/17/2017 Vitamin D deficiency disease 01/04/2017 Gastric ulcer 02/17/2016 Abdominal aortic aneurysm (AAA) without rupture 01/06/2016 Chronic diastolic heart failure 12/12/2015 Overview (08/15/2016): Chronic diastolic heart failure Bradycardia 12/12/2015 Overview (08/15/2016): Bradycardia Ventricular bigeminy 12/12/2015 Overview (08/15/2016): Ventricular bigeminy History of myocardial infarction 12/12/2015 Overview (08/15/2016): H/O acute myocardial infarction History of cardiac arrest 12/12/2015 Overview (08/15/2016): H/O cardiac arrest Coronary artery disease of n ative artery of [place] tribe heart with stable angina pectoris 12/12/2015 Overview (08/15/2016): Coronary artery disease involving [place] coronary artery of [place] heart without angina pectoris Hypotension due to drugs 12/12/2015 Overview (08/15/2016): Hypotension due to medication Cardiomyopathy 12/12/2015 Overview (08/15/2016): Cardiomyopathy Nausea 11/29/2015 Weight loss 11/29/2015 Abdominal pain 11/29/2015 Chronic diarrhea 11/29/2015 Microscopic colitis 11/25/2015 Angina pectoris 04/04/2014 Overview (08/15/2016): Angina pectoris Obstructive sleep apnea syndrome 04/04/2014 Overview (08/15/2016): STAN on CPAP Benign hypertension 04/04/2014 Overview (08/15/2016): HTN (hypertension), benign Dyslipidemia 04/04/2014 Overview (08/15/2016): Dyslipidemia Generalized ischemic myocardial dysfunction 03/11 Overview (08/15/2016): Ischemic cardiomyopathy Tobacco dependence syndrome 04/04/2014 Overview (08/15/2016): Tobacco abuse S/P coronary artery stent placement Tobacco use Resolved Problems Problem Noted Date Diagnosed Date Resolved Date Iron deficiency anemia, unspecified 08/20/2016 09/04/2021 RACHEL (iron deficiency anemia) 08/20/2016 09/04/2021 Anemia 02/17/2016 09/04/2021 Encounters Date Type Department Care Team Description 10/06/2024 Telephone [facility] Surgery [address] [facility] Floor 1 [place] [address] Duane Roger MD 09/26/2024 6:00 PM CDT Lab [facility] [address] [place] [phone] 09/26/2024 5:45 PM CDT Lab [facility]) [address] [place] [phone] Anemia in stage 3 chronic kidney disease, unspecified whether stage 3a or 3b CKD (HCC); Stage 3 chronic kidney disease, unspecified whether stage 3a or 3b CKD (HCC); Screening for hematuria or proteinuria; Primary hypertension; Vitamin D deficiency disease; Obstructive sleep apnea syndrome; Renal osteodystrophy 09/26/2024 2:00 PM CDT Office Visit [facility] Nephrology [address] [facility] 5th [place] [address] [place] [address] Bernabe Nichols MD Renal osteodystrophy (Primary Dx); Primary hypertension; Stage 3a chronic kidney disease (HCC) from Last 3 Months Immunizations Immunization Administration Dates Next Due Influenza, Quadrivalent, Hig h Dose, Preservative Free, Intrr 03/15/2020 Influenza, Trivalent, High D ose, Split, Preservative Free, Intramuscular 03/12/2014 Influenza, Unspecified 02/07/2019 Pfizer SARS-CoV-2 Monovalent Vaccination (12+ Yrs) PURPLE 02/18/2021,07/26/2020,07/05/2020 Pneumococcal Polysaccharide PPV23 03/12/2014 Tdap 02/07/2019 Surgical History Surgery Date Site/Laterality Comments APPENDECTOMY CHOLECYSTECTOMY INGUINAL HERNIA REPAIR ROTATOR CUFF REPAIR CORONARY ANGIOPLASTY WITH STENT PLACEMENT 02/07/2019 - 03/09/2019 NEPHRECTOMY 05/10/2009 - 05/09/2010 Right due to deformity at [facility]E [facility]UM[facility] SURGERY Medical History Medical History Date Comments Cardiomyopathy CHF (congestive heart failure) (HCC) Bradycardia Coronary artery disease With his tory of stents in 1999 [employer] Congenital single kidney Pancreatitis Remotely, unclea r details Collagenous colitis Vitamin D deficiency Iron deficiency Gastric ulcer [place] to be relat ed to combination of NSAIDs and smoking contributing to history of poor healing History of CO (myocardial infarction) With history of cardiac arrest GI bleed In 08/2016, pres umed diverticular bleed Abdominal aortic aneurysm (AAA) Abdominal pain 11/29/2015 Central retinal artery occlusion 04/05/2017 Angina pectoris 04/04/2014 Angina pectoris Tobacco dependence syndrome 04/04/2014 [employer]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 Coronary artery disease of n ative artery of [place] heart with stable angina pectoris 12/12/2015 Coronary artery disease invo lving [place] coronary artery of [place] heart without angina pectoris Obstructive sleep apnea syndrome 04/04/2014 STAN on CPAP Obstructive sleep apnea, adult 04/06/2017 Abdominal aortic aneurysm (A AA) without rupture 01/06/2016 Hypertension 04/05/2017 Benign hypertension 04/04/2014 HTN (hyperte nsion), benign Chronic diastolic heart failure (HCC) 12/12/2015 Chronic diastolic heart failure Bradycardia 12/12/2015 Bradycardia Ventricular bigeminy 12/12/2015 Ventricular bigeminy Microscopic colitis 11/25/2015 Nausea 11/29/2015 Myocardial infarction (HCC) Aneurysm Family History Medical History Relation Name Comments Cancer Brother Heart attack Brother Heart disease Brother Hypertension Brother Stroke Brother Heart disease Father Stroke Father Relation Name Status Comments Brother Father Social History Tobacco Use Types Packs/Day Years Used Date Smoking Tobacco: Former Cigarettes Q uit: 02/05/2020 Smokeless Tobacco: Never Tobacco Cessation:Counseling Given: Not Answered Alcohol Use Standard Drinks/Week Comments Not Currently 0 (1 standard drink = 0.6 oz pur e alcohol) rare Sex and Gender Information Value Date Recorded Sex Assigned at Not on file Legal Sex Male 2:02 AM RESEARCH EDITOR Gender Identity Male 05/20/2020 4:45 PM RESEARCH EDITOR Sexual Orientation Straight 09/11/2019 5: 16 PM CDT Obstetrics History Last Filed Vital Signs Vital Sign Reading Time Taken Comments Blood Pressure 124/73 09/26/2024 2:21 PM CDT Pulse 65 09/26/2024 2:21 PM CDT Temperature 36.4 C (97.6 F) 09/29/2023 10:55 AM CDT Respiratory Rate 18 09/29/2023 10:55 AM CDT Oxygen Saturation 99% 06/19/2024 10:12 AM RESEARCH EDITOR Inhaled Oxygen Concentration - - Weight 100.2 kg (221 lb) 06/19/2024 10:12 AM RESEARCH EDITOR Height 182.9 cm (6') 06/19/2024 10:12 AM RESEARCH EDITOR Body Mass Index 29.97 06/19/2024 10:12 AM RESEARCH EDITOR Plan of Treatment Health Maintenance Due Date Last Done Comments Depression Screening 1944 Hepatitis B Screening 1962 Zoster Vaccine (1 of 2) 1994 Well Visit 65+ 2009 Pneumococcal vaccine 65+ (2 of 2 - PCV) 03/12/2015 03/12/2014 Fall Risk Assessment 02/08/2021 02/09/2020 Covid-19 Vaccine (4 - 2023-2 5 season) 2024 02/18/2021, 07/26/2020, 07/05/2020 Influenza Vaccine (#1) 2025 0, 02/07/2019, 03/12/2014 DTaP/Tdap/Td Vaccine (2 - Td or Tdap) 02/07/2029 02/07/2019 Colon Cancer Screening-CT Colonography Discontinued 08/14/2016, 01/08/2016 Colon Cancer Screening-Colonoscopy Discontinued 08/14/2016, 01/08/2016 Colon Cancer Screening-DNA Stool Discontinued 08/15/19 17, 01/08/2016 Colon Cancer Screening-FIT Discontinued 08/14/2016, Colon Cancer Screening-FOBT Discontinued 08/14/2016, 0 01/08/2016 Colon Cancer Screening-Sigmoidoscopy Discontinued 08/14/2016, 01/08/2016 Colorectal Cancer Screening Discontinued Abdominal Aortic Aneurysm (A AA) Screen Completed 12/20/2024, 12/31/2023, 09/03/2022, Additional history exists Medical Devices Implanted Type Area Log Deckman Device Identifier Shelf Expiration Date Model / Serial / Lot UniYu Garth [id number] Synergy 2.5mm 32mm 144cm Radiopaque 1 Access Port Inflation Lumen - [id number] Implanted:Qty: 1 on 02/24/2019 by Shahid Khan MD at [facility] N/A: Coronary [place] [employer] Garth 08/03/2020 [id number] / / [id number] Description:BARTOLO to Circumfle x Procedures Procedure Name Priority Date/Time Associated Diagnosis Comments IGG Routine 10/05/2024 1:28 PM CDT MGUS (monoclonal gammopathy of unknown significance) IGM Routine 10/05/2024 1:28 PM CDT MGUS (monoclonal gammopathy of unknown significance) IGA Routine 10/05/2024 1:28 PM CDT MGUS (monoclonal gammopathy of unknown significance) PROTEIN ELECTROPHORESIS, WITH REFLEX, SERUM Routine 10/05/2024 1:28 PM CDT MGUS (monoclonal gammopathy of unknown significance) CBC WITH AUTO DIFFERENTIAL Routine 10/05/2024 1:28 PM CDT MGUS (monoclonal gammopathy of unknown significance) EGFR Routine 09/26/2024 1:56 PM CDT Anemia in stage 3 chronic kidney disease, unspecified whether stage 3a or 3b CKD (HCC) Stage 3 chronic kidney disease, unspecified whether stage 3a or 3b CKD (HCC) Screening for hematuria or proteinuria Primary hypertension Vitamin D deficiency disease Obstructive sleep apnea syndrome Renal osteodystrophy DIFFERENTIAL AUTO Routine 09/26/2024 1:5 6 PM CDT Anemia in stage 3 chronic kidney disease, unspecified whether stage 3a or 3b CKD (HCC) Stage 3 chronic kidney disease, unspecified whether stage 3a or 3b CKD (HCC) Screening for hematuria or proteinuria Primary hypertension Vitamin D deficiency disease Obstructive sleep apnea syndrome Renal osteodystrophy CBC WITH AUTO DIFFERENTIAL Routine 09/26/2024 1:56 PM CDT Anemia in stage 3 chronic kidney disease, unspecified whether stage 3a or 3b CKD (HCC) Stage 3 chronic kidney disease, unspecified whether stage 3a or 3b CKD (HCC) Screening for hematuria or proteinuria Primary hypertension Vitamin D deficiency disease Obstructive sleep apnea syndrome Renal osteodystrophy RENAL FUNCTION PANEL Routine 09/26/2024 1:56 PM CDT Anemia in stage 3 chronic kidney disease, unspecified whether stage 3a or 3b CKD (HCC) Stage 3 chronic kidney disease, unspecified whether stage 3a or 3b CKD (HCC) Screening for hematuria or proteinuria Primary hypertension Vitamin D deficiency disease Obstructive sleep apnea syndrome Renal osteodystrophy PTH Routine 09/26/2024 1:56 PM CDT Anemia in stage 3 chronic kidney disease, unspecified whether stage 3a or 3b CKD (HCC) Stage 3 chronic kidney disease, unspecified whether stage 3a or 3b CKD (HCC) Screening for hematuria or proteinuria Primary hypertension Vitamin D deficiency disease Obstructive sleep apnea syndrome Renal osteodystrophy PROTEIN / CREATININE RATIO, URINE, RANDOM Routine 09/26/2024 1:56 PM CDT Anemia in stage 3 chronic kidney disease, unspecified whether stage 3a or 3b CKD (HCC) Stage 3 chronic kidney disease, unspecified whether stage 3a or 3b CKD (HCC) Screening for hematuria or proteinuria Primary hypertension Vitamin D deficiency disease Obstructive sleep apnea syndrome Renal osteodystrophy VITAMIN D 25 HYDROXY Routine 09/26/2024 1:56 PM CDT Anemia in stage 3 chronic kidney disease, unspecified whether stage 3a or 3b CKD (HCC) Stage 3 chronic kidney disease, unspecified whether stage 3a or 3b CKD (HCC) Screening for hematuria or proteinuria Primary hypertension Vitamin D deficiency disease Obstructive sleep apnea syndrome Renal osteodystrophy URINALYSIS AND REFLEX TO MICROSCOPIC AND CULTURE Routine 09/26/2024 1:56 PM CDT Anemia in stage 3 chronic kidney disease, unspecified whether stage 3a or 3b CKD (HCC) Stage 3 chronic kidney disease, unspecified whether stage 3a or 3b CKD (HCC) Screening for hematuria or proteinuria Primary hypertension Vitamin D deficiency disease Obstructive sleep apnea syndrome Renal osteodystrophy CTA ABDOMEN PELVIS W WO CONTRAST Schedule Routine, Read Routine (OP Routine) 09/03/2021 11:38 AM CDT Abdominal aortic aneurysm (AAA) without rupture COLONOSCOPY REPORT 08/14/2016 from Last 3 Months or Most Recently Relevant to Health Maintenance Results * (ABNORMAL) CBC with auto differential (10/05/2024 1:28 PM CDT) WBC 7.7 3.8 - 10.8 Thousand/u L [facility] RBC, POC 4.02(L) 4.20 - 5.80 Million/uL [facility] Hgb 11.1(L) 13.2 - 17.1 g/dL [facility] Hct 35.3(L) 38.5 - 50.0 % [facility] MCV 87.8 80.0 - 100.0 fL [facility] MCH 27.6 27.0 - 33.0 pg [facility] MCHC 31.4(L) 32.0 - 36.0 g/dL [facility] Comment: For adults, a slight decrease in the calculated MCHC value (in the range of 30 to 32 g/dL) is most likely not clinically significant; however, it should be interpreted with caution in correlation with other red cell parameters and the patient's clinical condition. Rdw 14.5 11.0 - 15.0 % [facility] Platelets 182 140 - 400 Thousand/u L [facility] MPV 11.2 7.5 - 12.5 fL [facility] Neutrophils, abs 5,744 1,500 - 7,800 cells/uL [facility] Lymphocytes, abs 1,047 850 - 3,900 cells/uL [facility] Monocyte abs 601 200 - 950 cells/uL [facility] Eosinophils, abs 270 15 - 500 cells/uL [facility] Basophils, abs 39 0 - 200 cells/uL [facility] Neutrophils 74.6 % [facility] Lymphocyte pct 13.6 % [facility] Monocytes 7.8 % [facility] Eosinophils 3.5 % [facility] Basophils 0.5 % [facility] Blood 10/05/2024 1:28 PM CDT 10/05/2024 1:28 PM CDT us Berto Peoples MD LAB BLOOD ORDERABLES Final R esult [facility] [address] [place] [address] * (ABNORMAL) Protein electrophoresis with reflex, serum with interpretation (10/05/2024 1:28 PM CDT) Pathologist [facility] Protein, sr 6.3 6.1 - 8.1 g/dL [facility] ALBUMIN 3.6(L) 3.8 - 4.8 g/dL [facility] Alpha-1 Globulin 0.4(H) 0.2 - 0.3 g/dL [facility] Alpha-2 Globuliin 0.8 0.5 - 0.9 g/dL [facility] Beta-1 globulin 0.4 0.4 - 0.6 g/dL [facility] Beta 2 globulin 0.3 0.2 - 0.5 g/dL [facility] Gamma globulin 0.8 0.8 - 1.7 g/dL [facility] Abnormal protein band 0.6(H) NONE DETECTED g/dL [facility] SPE, interp [facility] Comment: Restricted band (M-spike) migrating in the gamma region. Consider serum immunofixation to rule out a monoclonal protein if clinically indicated. Blood 10/05/2024 1:28 PM CDT 10/05/2024 1:28 PM CDT Berto Peoples MD LAB BLOOD ORDERABLES Final R esult Performing Organization Address [facility] de Phone Number [facility] [address] [place] [address] * IgA (10/05/2024 1:28 PM CDT) Immunoglobulin A 143 70 - 320 mg/dL [facility] Blood 10/05/2024 1:28 PM CDT 10/05/2024 1:28 PM CDT Berto Peoples MD LAB BLOOD ORDERABLES [facility] Performing Organization Address [facility] de Phone Number [facility] [address] [place] [address] * (ABNORMAL) IgM (10/05/2024 1:28 PM CDT) Immunoglobulin M 36(L) 50 - 300 mg/dL [facility] Blood 10/05/2024 1:28 PM CDT 10/05/2024 1:28 PM CDT Berto Peoples MD LAB BLOOD ORDERABLES Final R esult Performing Organization Address [facility] de Phone Number [facility] [address] [place] [address] * IgG (10/05/2024 1:28 PM CDT) Immunoglobulin G 1,005 600 - 1,540 mg/dL [facility] Blood 10/05/2024 1:28 PM CDT 10/05/2024 1:28 PM CDT us Berto Peoples MD LAB BLOOD ORDERABLES Final R esult Performing Organization Address [facility] de Phone Number [facility] [address] [address] * (ABNORMAL) eGFR (09/26/2024 1:56 PM CDT) Pathologist [facility] eGFR 30(L) >=60 mL/min/1. 73 m2 Comment: Interpretive Data Reference Interval Normal >/= 90 mL/min/1.73m2 Mildly decreased* 60 - 89 mL/min/1.73m2 Mildly to moderately decreased 45 - 59 mL/min/1.73m2 Moderately to severely decreased 30 - 44 mL/min/1.73m2 Severely decreased 15 - 29 mL/min/1.73m2 Kidney Failure < 15 mL/min/1.73m2 *Relative to young adult level Estimated glomerular filtration rate is determined by the 2020 CKD-EPI equation recommended by the National Kidney Foundation (A Unifying Approach to GFR Estimation: Recommendations of the NKF-ASK Task Force on Reassessing the Inclusion of Race in Diagnosing Kidney Disease, JASN 2020). The CKD-EPI equation should not be used for patients with unstable renal function and has not been validated in children and those over 70. Current interpretive data was last reviewed 2021. Blood 09/26/2024 1:56 PM CDT 09/26/2024 2:35 PM CDT us Bernabe Nichols MD LAB BLOOD ORDERABLES Fin al Result [facility] [address] [facility] Department of Laboratories [place], [place] [id number] * Differential, auto (09/26/2024 1:56 PM CDT) Pathologist [facility] Neutrophil abs 4.34 1.50 - 6.50 K/cumm Imm gran abs 0.02 0.00 - 0.10 K/cumm [facility] Lymphocyte abs 1.18 0.80 - 3.30 K/cumm [facility] Monocyte abs 0.43 0.20 - 0.80 K/cumm [facility] Eosinophil abs 0.15 0.00 - 0.50 K/cumm [facility] Basophil abs 0.03 0.00 - 0.10 K/cumm [facility] Neutrophil pct 70.6 % [facility] Comment: Interpretive Data Percent cell count reference ranges are not reported, since discordance with absolute values may lead to misinterpretation of CBC data. Current Interpretive Data was last revised on 2017. Imm gran pct 0.3 % [facility] Comment: Interpretive Data Percent cell count reference ranges are not reported, since discordance with absolute values may lead to misinterpretation of CBC data. Current Interpretive Data was last revised on 2017. Lymphocyte pct 19.2 % [facility] Comment: Interpretive Data Percent cell count reference ranges are not reported, since discordance with absolute values may lead to misinterpretation of CBC data. Current Interpretive Data was last revised on 2017. Monocyte pct 7.0 % [facility] Comment: Interpretive Data Percent cell count reference ranges are not reported, since discordance with absolute values may lead to misinterpretation of CBC data. Current Interpretive Data was last revised on 2017. Eosinophil pct 2.4 % [facility] Comment: Interpretive Data Percent cell count reference ranges are not reported, since discordance with absolute values may lead to misinterpretation of CBC data. Current Interpretive Data was last revised on 2017. Basophil pct 0.5 % [facility] Comment: Interpretive Data Percent cell count reference ranges are not reported, since discordance with absolute values may lead to misinterpretation of CBC data. Current Interpretive Data was last revised on 2017. Blood 09/26/2024 1:56 PM CDT 09/26/2024 2:29 PM CDT us Bernabe Nichols MD LAB BLOOD ORDERABLES Fin al Result [facility] [address] [facility] Department of Laboratories [place], [place] [id number] * Urinalysis reflex to microscopic and culture Urine, clean voided (09/26/2024 1:56 PM CDT) Color, ur Straw Yellow Clarity, ur Clear Clear [facility] Specific gravity, ur 1.018 1.003 - 1.030 [facility] pH, urine 5.5 [facility] Comment: Interpretive Data U rine pH is affected by diet, medications, systemic acid-base disturbances, and renal tubular function. pH may affect urinary stone formation. For example, urine pH below 6.0 may help reduce the tendency for calcium phosphate stones and pH greater than 6.0 may reduce the tendency for uric acid stone formation. Source: [facility] Current Interpretive Data was last revised on 2017 Protein, ur ql Negative Negative [facility] Glucose, ur ql Negative Negative [facility] Ketones, ur Negative Negative [facility] Bilirubin, ur Negative Negative [facility] Blood, ur Negative Negative [facility] Urobilinogen, ur <2.0 <2.0 mg/dL [facility] Nitrite, ur Negative Negative [facility] Leukocyte esterase, ur Negative Negative [facility] UA reflex comment Reflex conditions for microscopic UA and culture not met. [facility] Urine, clean voided 09/26/2024 1:56 PM CDT 09/26/2024 2:29 PM CDT us Bernabe Nichols MD LAB MICROBIOLOGY - GENER AL ORDERABLES Final Result [facility] [place] [address] * (ABNORMAL) CBC with auto differential (09/26/2024 1:56 PM CDT) WBC 6.15 3.80 - 9.90 K/cumm Hgb 11.4(L) 13.0 - 17.5 g/dL [facility] Hct 34.9(L) 38.9 - 50.3 % [facility] Plt 181 150 - 400 K/cumm [facility] MPV 11.3 9.1 - 12.3 fL [facility] RBC 4.08(L) 4.30 - 5.80 M/cumm [facility] MCV 85.5 81.3 - 96.4 fL [facility] MCH 27.9 27.1 - 33.3 pg [facility] MCHC 32.7 32.3 - 35.7 g/dL [facility] RDW CV 15.3(H) 11.1 - 14.9 % [facility] RDW SD 48.0 35.7 - 48.1 fL [facility] NRBC abs 0.00 0.00 - 0.01 K/cumm [facility] Blood 09/26/2024 1:56 PM CDT 09/26/2024 2:29 PM CDT Bernabe Nichols MD LAB BLOOD ORDERABLES Fin al Result Performing Organization Address [facility] de Phone Number [facility] [place] [address] * Protein / creatinine ratio, urine, random (09/26/2024 1:56 PM CDT) Protein, ur, quant 6.2 mg/dL Comment: Interpretive Data No reference range established. Current interpretive data was last revised 2018. Creatinine Ur 105.1 mg/dL [facility] Comment: Interpretive Data No reference range established. Current interpretive data was last revised 2018. Protein/creatinin e ratio 59.0 0.0 - 180.0 mg/g CR [facility] Urine 09/26/2024 1:56 PM CDT 09/26/2024 2:29 PM CDT us Bernabe Nichols MD LAB URINE ORDERABLES Fin al Result Performing Organization Address [facility] Co de Phone Number [facility] [place] [address] * Vitamin D 25 hydroxy (09/26/2024 1:56 PM CDT) Vitamin D 25-OH 44 30 - 80 ng/mL Blood 09/26/2024 1:56 PM CDT 09/26/2024 2:29 PM CDT Bernabe Nichols MD LAB BLOOD ORDERABLES Fin al Result [facility] [place] [address] * PTH (09/26/2024 1:56 PM CDT) Pathologist [facility] PTH 59 15 - 65 pg/mL Blood 09/26/2024 1:56 PM CDT 09/26/2024 2:29 PM CDT Bernabe Nichols MD LAB BLOOD ORDERABLES Fin al Result Performing Organization Address [facility] de Phone Number [facility] [place] [address] * (ABNORMAL) Renal function panel (09/26/2024 1:56 PM CDT) [facility] Sodium 143 135 - 145 mmol/L Potassium, pl 4.9 3.3 - 4.9 mmol/L [facility] Chloride 107 97 - 110 mmol/L [facility] CO2 27 22 - 32 mmol/L [facility] Anion gap 9 2 - 15 mmol/L [facility] BUN 28(H) 6 - 25 mg/dL [facility] Creatinine 2.15(H) 0.80 - 1.30 mg/dL [facility] Glucose 120 70 - 199 mg/dL [facility] Comment: Interpretive Data Fasting glucose >/= 126 mg/dl is diagnostic for diabetes. Fasting is defined as no caloric intake for at least 8 hours. Fasting glucose between 100 mg/dl to 125 mg/dl is diagnostic of prediabetes. In a patient with classic symptoms of hyperglycemia or hyperglycemic crisis, a random glucose >/= 200 mg/dl is diagnostic for diabetes. In the absence of unequivocal hyperglycemia, results should be confirmed by repeat testing. The classification and Diagnosis of Diabetes Diabetes Care 2021; 46: S19-S40. Current interpretive data was last revised 2022. Calcium 9.1 8.5 - 10.3 mg/dL [facility] Phosphorus, pl 3.7 2.3 - 4.5 mg/dL [facility] Albumin 3.8 3.5 - 5.0 g/dL [facility] Blood 09/26/2024 1:56 PM CDT 09/26/2024 2:29 PM CDT us Bernabe Nichols MD LAB BLOOD ORDERABLES Fin al Result [facility] [place] [address] * CTA Abdomen Pelvis (09/03/2021 11:38 AM CDT) Anatomical Region Laterality Modality Body N/A Computed Tomogra phy 09/03/2021 2:06 PM CDT Impressions 09/03/2021 4:39 PM CDT IMPRESSION: 1. 424 mm x 42 mm infrarenal abdominal aortic aneurysm, slightly increased since 2016 when it measured 39 x 38 mm . 2. AAA volume: 84 cc. Dictated by: Shivam Winters M.D. The radiology attending physician has personally reviewed this study, and had reviewed and/or edited this written report and agrees with it. Electronically signed by: Srinivasan Hendrix M.D. Narrative 09/03/2021 4:39 PM CDT EXAMINATION: CT ANGIOGRAPHY OF THE ABDOMEN AND PELVIS WITH AND WITHOUT CONTRAST HISTORY: Abdominal aortic aneurysm monitor TECHNIQUE: CT angiography of the abdomen and pelvis was performed prior to and following uneventful intravenous administration of 69 ml Optiray-350 using the pre-endoluminal stent graft protocol. Vascular 3D images were generated on a dedicated workstation and also reviewed. COMPARISON: 12/25/2015 FINDINGS: VASCULAR FINDINGS: There is an an infrarenal abdominal aortic aneurysm. There are no signs of aneurysm instability. Celiac artery: No significant stenosis SMA: No significant stenosis LAUREN: No significant stenosis Renal arteries: No significant stenosis Vascular measurements: Aortic diameter at proximal implantation site: 24 mm AP x 24 mm [id number]-[id number] Aortic diameter 10mm inferior to proximal implantation site: 24 mm AP x 22 mm xjgeg-[id number] Aortic diameter 15mm inferior to proximal implantation site: 22 mm AP x 22 mm aufnk-wm-qpht Maximum outer aneurysm diameter: 42 mm AP x 42 mm gjjsd-zj-tbba. Aortic neck length: 44 mm Right common iliac diameter: 18 mm Left common iliac diameter: 18 mm Right external iliac diameter: 11 mm Left external iliac diameter: 10 mm Length from lower renal artery to right common iliac origin: 101 mm Length from lower renal artery to left common iliac origin: 101 mm Right length for sealing/lower renal to iliac bifurcation: 197 mm Left length for sealing/lower renal to iliac bifurcation: 174 mm AAA volume (lowest renal artery to aortic bifurcation): 84 cc NON-VASCULAR FINDINGS: Diverticulosis. 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 Procedure Note Srinivasan Hendrix MD - 09/03/2021 EXAMINATION: CT ANGIOGRAPHY OF THE ABDOMEN AND PELVIS WITH AND WITHOUT CONTRAST HISTORY: Abdominal aortic aneurysm monitor TECHNIQUE: CT angiography of the abdomen and pelvis was performed prior to and following uneventful intravenous administration of 69 ml Optiray-350 using the pre-endoluminal stent graft protocol. Vascular 3D images were generated on a dedicated workstation and also reviewed. COMPARISON: 12/25/2015 FINDINGS: VASCULAR FINDINGS: There is an an infrarenal abdominal aortic aneurysm. There are no signs of aneurysm instability. Celiac artery: No significant stenosis SMA: No significant stenosis LAUREN: No significant stenosis Renal arteries: No significant stenosis Vascular measurements: Aortic diameter at proximal implantation site: 24 mm AP x 24 mm [id number] Aortic diameter 10mm inferior to proximal implantation site: 24 mm AP x 22 mm fjveu-yu-rgyt Aortic diameter 15mm inferior to proximal implantation site: 22 mm AP x 22 mm gveis-ki-ptsl Maximum outer aneurysm diameter: 42 mm AP x 42 mm tienl-nm-nmic. Aortic neck length: 44 mm Right common iliac diameter: 18 mm Left common iliac diameter: 18 mm Right external iliac diameter: 11 mm Left external iliac diameter: 10 mm Length from lower renal artery to right common iliac origin: 101 mm Length from lower renal artery to left common iliac origin: 101 mm Right length for sealing/lower renal to iliac bifurcation: 197 mm Left length for sealing/lower renal to iliac bifurcation: 174 mm AAA volume (lowest renal artery to aortic bifurcation): 84 cc NON-VASCULAR FINDINGS: Diverticulosis. 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 IMPRESSION: IMPRESSION: 1. 424 mm x 42 mm infrarenal abdominal aortic aneurysm, slightly increased since 2016 when it measured 39 x 38 mm . 2. AAA volume: 84 cc. Dictated by: Shivam Winters M.D. The radiology attending physician has personally reviewed this study, and had reviewed and/or edited this written report and agrees with it. Electronically signed by: Srinivasan Hendrix M.D. Duane Roger MD IMG CT PROCEDURES Final Resul t * COLONOSCOPY REPORT (08/14/2016) Anatomical Region Laterality Modality Other Narrative 08/14/2016 Ordered by an unspecified provider. Historical Provider GI PROCEDURE ORDERABLES F inal Result from Last 3 Months or Most Recently Relevant to Health Maintenance Insurance MEDICARE [facility] MEDICARE [facility] MEDICARE [facility] Advance Directives For more information, please contact: [phone] * Full Code (Latest Code Status on File) Date Activated Date Inactivated Comments 02/23/2019 4:20 AM 02/27/2019 3:14 PM Care Teams [employer] Supervisor Relationship Specialty Start Date End Date Jacob Bowen MD [address] [place] [address] PCP - General 01/14/17 Shahid Khan MD [address] [place] [address] Referring Physician Cardiovascular Disease 02/05/20
--- OUTSIDE RECORDS SUMMARY | 2024-12-16 07:46 | XMS_ITS | Encounter Summary ---
Author Organization [facility] Address [address] 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
--- OUTSIDE RECORDS SUMMARY | 2024-12-16 07:46 | XMS_ITS | Encounter Summary ---
Author Organization [facility] Healthcare Address [address] [place] [address] Care Team Providers Care Telegraph Repeater Technician Name Role Phone Jacob Bowen MD Primary Care Prov ider Shahid Khan MD Unavailable Encounter Details Date Type Department Care Team (Late st Contact Info) Description 07/16/2017 Orders Only [facility] Health Information Management [address] [place] [address] Scanning, Provider Social History Tobacco Use Types Packs/Day Years Used Date Smoking Tobacco: Never Assessed Sex and Gender Information Value Date Recorded Sex Assigned at Not on file 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 Gender Identity Male 05/20/2020 4:45 PM TAMALE MACHINE FEEDER Sexual Orientation Straight 09/11/2019 5: 16 PM CDT documented as of this encounter Plan of Treatment Not on file documented as of this encounter Procedures Procedure Name Priority Date/Time Associated Diagnosis Comments SCAN - RADIOLOGY/IMAGING 07/16/2017 documented in this encounter Results * SCAN - RADIOLOGY/IMAGING (07/16/2017) Anatomical Region Laterality Modality Other us Provider Scanning Final Result documented in this encounter Visit Diagnoses Not on filedocumented in this encounter Care Teams Telegraph Repeater Technician Relationship Specialty Start Date End Date Jacob Bowen MD [address] [place] [address] PCP - General 9/7/17 Shahid Khan MD [address] [place] [address] Referring Physician Cardiovascular Disease 02/05/20 TIFFANIE PEÑA [address] [address] Referring Physician Emergency Medicine 02/07/19 documented as of this encounter
--- OUTSIDE RECORDS SUMMARY | 2024-12-16 07:46 | XMS_ITS | Continuity of Care Document ---
Author Organization [facility] [place] [address] [place] [address] Phone Care Team Providers Care Groundhand Name Role Phone Quentin Pineda Unavailable Unavailable Procedures Procedure Date Eye Exam Established Pt Ophthalmoscopy, Subsequent Eye Exam Established Pt Ophthalmoscopy, Subsequent Eye Exam Established Pt Ophthalmoscopy, Subsequent Eye Exam Established Pt Ophthalmoscopy, Subsequent Injection Eye Drug Kenalog/Triamcinolone Acetonide Inj Eye Exam Established Pt Ophthalmoscopy, Subsequent Injection Eye Drug Kenalog/Triamcinolone Acetonide Inj Eye Exam Established Pt Ophthalmoscopy, Subsequent Office Consultation Ophthalmoscopy Injection Eye Drug Kenalog/Triamcinolone Acetonide Inj Eye Exam, New Patient Advance Directives Directive Yes / No Effective Date File Name No Information Encounters Encounter Description Practice Location Reason(s) For Visit Diagnoses Date Provider Providers Copied on Encounter [facility], [address], [place], [place], [id number], [place] tel:[phone] [facility] No Information Florence Saavedra. [address] [place], [address], [place]. tel:[phone] Referring Provider: Quentin Serrano, [address] [place], [address]. tel:[phone] [facility], [address], [place], [place], [id number], [place] tel:[phone] [facility] No Information Jun-0 7-200 8 Miriam Saavedra. [address] [place], [address], [place]. tel:[phone] [facility], [address], [place], [place], [id number], [place] tel:[phone] [facility] No Information 1-200 8 Miriam Saavedra. [address] [place], [address], [place]. tel:[phone] Referring Provider: Quentin Serrano, [address] [place], [address]. tel:[phone] [facility], [address], [place], [place], [id number], [place] tel:[phone] [facility] No Information 4-200 8 Miriam Saavedra. [address] [place], [address], [place]. tel:[phone] [facility], [address], [place], [place], [id number], [place] tel:[phone] [facility] No Information Dec-1 0-200 7 Miriam Saavedra. [address] [place], [address], [place]. tel:[phone] [facility], [address], [place], [place], [id number], [place] tel:[phone] [facility] No Information Nov-1 9-200 7 Miriam Saavedra. [address] [place], [address], [place]. tel:[phone] [facility], [address] [place] [address] [address], [place], [place], [id number], [place] tel:[phone] [facility] No Information Oct-2 5-200 7 Miriam Saavedra. [address] [place], [place], [facility], . tel:[phone] [facility], [address] [place] [address] [address], [place], [place], [id number], [place] tel:[phone] [facility] No Information Oct-1 1-200 7 Miriam Saavedra. [address] [place], [address], [place]. tel:[phone] Office Consultation [facility], [address] [place] [address] [address], [place], [place], [id number], [place] tel:[phone] [facility] No Information Sep-2 7-200 7 Miriam Saavedra. [address] [place], [place], [facility], [place]. tel:[phone] Referring Provider: Blair Goldman, [address] [place], [place] [address], [place], [place], [facility]. tel:[phone] [facility], [address] [place] [address] [address], [place], [place], [id number], [place] tel:[phone] [facility] No Information Sep-2 1-200 7 Justin Pinto. [facility] , [address], [place], [place], [facility], . tel:[phone] Family History Family Member Type Diagnosis Age At Onset No Information Payers Payer name Insurance type Covered constitution party ID Sami zayas(s) [facility] Out Of State [id number] Social History Type Description Quantity Date Captured Comments Sex Male Smoking Status No Information Chief Complaint And Reason For Visit No Information Reason For Referral Reason For Referral No Information History Of Present Illness Encounter Date Complaint History Of Prese nt Illness No Information Functional Status Date Functional Assessmen t No Information Instructions Date Instruction Additional Infor mation No Information Assessments Type Assessment Date No Information Patient Care Teams Name Effective Dates (start - stop) Status Members No Information
--- OUTSIDE RECORDS SUMMARY | 2024-12-16 07:46 | XMS_ITS | Encounter Summary ---
Author Organization [facility] Address 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 [address] [email or web address] Cardiac Catheterization Comprehensive Report Patient: Ivan Márquez Study ID: [id number] Gender: M : 1945 Age: 62 years Race: 1 Room: Bed: Height: 72 in ( 182.9 cm ) Study Date: October 11, 2007 Patient status: Outpatient Weight: 284.9 lb ( 129.5 kg ) Access. #: [id number] POC: Attending MD: Tyrone Performing MD: Tyrone Indications and History: INDICATIONS: Atypical anginal pain. HISTORY: Prior cardiovascular procedures: Angioplasty of the mid circumflex and mid RCA ( August 13, 1994 ). Stent of the mid circumflex ( September 28, 1999 ). of the mid RCA ( September 28, 1999 ). Procedure(s) Performed: DIAGNOSTIC PROCEDURES: Left heart catheterization. Left ventriculography. Selective coronary angiography. Study Conclusions: SUMMARY - Analysis of regional contractile function demonstrated severe posterobasal hypokinesis. Global left ventricular function was normal. EF estimated by contrast ventriculography was 50 %. - Coronary angiography demonstrated minor luminal irregularities. RECOMMENDATIONS The patient's chest discomfort does not appear due to obstructive coronary artery disease. The etiology of the patient's discomfort is still not clear. COMPLICATIONS: There were no complications. Description of Procedure: BACKGROUND INFORMATION: The procedures, together with their attendant risks and alternatives, and conscious sedation were explained to the patient and informed consent was obtained. Contrast ( Optiray, 150 ml ) was administered during the procedure. The patient was given 25.000 mcg FENTANYL (IVP). The patient was given 50.000 mL (IV) IV Solutions. The patient was given 3.000 l/min OXYGEN. The patient was given 2.000 mg VERSED (IVP). NARRATIVE: - Right femoral artery access. Cardiac structures: VENTRICULOGRAPHY: Analysis of regional contractile function demonstrated severe posterobasal hypokinesis. Global left ventricular function was normal. EF estimated by contrast ventriculography was 50 %. Coronary and graft angiography: LEFT ANTERIOR DESCENDING AND BRANCHES: LAD: The vessel was large. Angiography showed mild diffuse disease. LEFT CIRCUMFLEX AND BRANCHES: Circumflex: The vessel was medium size (co-dominant). Angiography showed mild diffuse disease. RIGHT CORONARY AND BRANCHES: RCA: The vessel was small (co-dominant). Angiography showed moderate diffuse disease. IMPRESSIONS: Coronary angiography demonstrated minor luminal irregularities. Condition1: --- Pressure mmHg Rate dPdt AO 155-S/ 96-D, 120-M 79 BPM LV 168-S/ 5-BD, 13-ED 76 BPM 1940 AOp 172-S/ 90-D, 124-M 66 BPM PBa 178-S/ 92-D, 128-M 77 BPM PBv 174-S/ 5-BD, 13-ED 77 BPM 2000 Prepared and Electronically Authenticated Jono Cardona MD Confirmed October 11, 2007 15:23:41 Procedure Note Provider, Historical - 10/11/2007 Please type in written order [place] [address] [place] [address] [email or web address] Cardiac Catheterization Comprehensive Report Patient: Ivan Márquez Study ID: [id number] Gender: M : 1945 Age: 62 years Race: 1 Room: Bed: Height: 72 in ( 182.9 cm ) Study Date: October 11, 2007 Patient status: Outpatient Weight: 284.9 lb ( 129.5 kg ) Access. #: [id number] POC: Attending MD: Tyrone Mayberry MD: Tyrone Indications and History: INDICATIONS: Atypical anginal pain. HISTORY: Prior cardiovascular procedures: Angioplasty of the mid circumflex andmid RCA ( August 13, 1994 ). Stent of the mid circumflex ( September 28, 1999 ). of the mid RCA ( September 28, 1999 ). Procedure(s) Performed: DIAGNOSTIC PROCEDURES: Left heart catheterization. Left ventriculography. Selective coronary angiography. Study Conclusions: SUMMARY - Analysis of regional contractile function demonstrated severe posterobasal hypokinesis. Global left ventricular function was normal. EF estimated by contrast ventriculography was 50 %. - Coronary angiography demonstrated minor luminal irregularities. RECOMMENDATIONS The patient's chest discomfort does not appear due to obstructivecoronary artery disease. The etiology of the patient's discomfort is still not clear. COMPLICATIONS: There were no complications. Description of Procedure: BACKGROUND INFORMATION: The procedures, together with their attendant risks and alternatives,and conscious sedation were explained to the patient and informed consentwas obtained. Contrast ( Optiray, 150 ml ) was administered during the procedure. The patient was given 25.000 mcg FENTANYL (IVP). The patientwas given 50.000 mL (IV) IV Solutions. The patient was given 3.000 l/min OXYGEN. The patient was given 2.000 mg VERSED (IVP). NARRATIVE: - Right femoral artery access. Cardiac structures: VENTRICULOGRAPHY: Analysis of regional contractile function demonstrated severeposterobasal hypokinesis. Global left ventricular function was normal. EF estimatedby contrast ventriculography was 50 %. Coronary and graft angiography: LEFT ANTERIOR DESCENDING AND BRANCHES: LAD: The vessel was large. Angiography showed mild diffuse disease. LEFT CIRCUMFLEX AND BRANCHES: Circumflex: The vessel was medium size (co-dominant). Angiography showed mild diffuse disease. RIGHT CORONARY AND BRANCHES: RCA: The vessel was small (co-dominant). Angiography showed moderate diffuse disease. IMPRESSIONS: Coronary angiography demonstrated minor luminal irregularities. Condition1: --- Pressure mmHg Rate dPdt AO 155-S/ 96-D, 120-M 79 BPM LV 168-S/ 5-BD, 13-ED 76 BPM 1940 AOp 172-S/ 90-D, 124-M 66 BPM PBa 178-S/ 92-D, 128-M 77 BPM PBv 174-S/ 5-BD, 13-ED 77 BPM 1999 Prepared and Electronically Authenticated Jono Cardona MD Confirmed October 11, 2007 15:23:41 us Jono Cardona MD FLUOROSCOPY ORDERABLES Final Result INTERFACE SYSTEM Refer to clinic/hospital department documented in this encounter Visit Diagnoses Diagnosis Other chest pain documented in this encounter
--- OUTSIDE RECORDS SUMMARY | 2024-12-16 07:46 | XMS_ITS | Encounter Summary ---
Author Organization [facility] Address [address] [address] Care Team Providers Care Fruit Room Hand Name Role Phone Jacob Bowen MD Primary Care Prov ider Jacob Bowen MD Primary Care Prov ider Veronica Jackson Primary Care Provider Jacob Tilley MD Primary Care Prov ider Shahid Khan MD Unavailable Encounter Details Date Type Department Care Team (Late st Contact Info) Description 03/21/2016 Orders Only [facility] ProviderGlenn MD [address] [place] [address] Social History Tobacco Use Types Packs/Day Years Used Date Smoking Tobacco: Never Assessed Sex and Gender Information Value Date Recorded Sex Assigned at Not on file 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 Historical Provider [facility] MICHELE MICHAELS Final Result documented in this encounter Visit Diagnoses Not on filedocumented in this encounter Care Teams Fruit Room Hand Relationship Specialty Start Date End Date Jacob Bowen MD [address] [place] [address] PCP - General 08/07/16 09/20/16 Jacob Bowen MD [address] [place] [address] PCP - General 12/19/15 08/06/16 Veronica Jackson [address] [place] [address] PCP - General 09/21/16 01/13/17 Jacob Bowen MD [address] [place] [address] PCP - General 01/14/17 Shahid Khan MD [address] [place] [address] Referring Physician Cardiovascular Disease 02/05/20 TIFFANIE PEÑA III, [address] [address] Referring Physician Emergency Medicine 02/07/19 documented as of this encounter
--- OUTSIDE RECORDS SUMMARY | 2024-12-16 07:46 | XMS_ITS ---
Author Organization [facility] Address [address] [place] [address] Care Team Providers Care Gizzard Skin Remover Name Role Phone Jacob Bowen MD Primary Care Prov ider Shahid Khan MD Unavailable Active Problems Problem Noted Date Diagnosed Date CKD (chronic kidney disease) stage 3, GFR 30-59 ml/min 09/26/2024 MGUS (monoclonal gammopathy of unknown significa nce) 03/07/2021 Anemia in stage 3 chronic kidney disease 021 Renal osteodystrophy 07/16/2020 Mixed hyperlipidemia 04/01/2020 Basal cell carcinoma (BCC) of skin of nose 02/04 Overview (02/05/2020): Added automatically from request for surgery [id number] Planned postoperative wound closure 02/05/2020 Overview (02/05/2020): Added automatically from request for surgery [id number] 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 Past Treatment and Therapy Plans No past plan information found. Lifetime Dose Tracking * Chemical Lifetime Dose Automatic Entry Manual Entr y Air kerma at the reference point (Ka,r) 4,794 mGy 0 mGy 4,794 mGy DLP 1,238 mGycm 1,238 mGycm 0 mGycm Resolved Problems Problem Noted Date Diagnosed Date Resolved Date Iron deficiency anemia, unspecified 08/20/2016 09/04/2021 RACHEL (iron deficiency anemia) 08/20/2016 09/04/2021 Anemia 02/17/2016 09/04/2021
--- OUTSIDE RECORDS SUMMARY | 2024-12-16 07:46 | XMS_ITS | Encounter Summary ---
Author Organization [facility] Address [address] [facility] [address] [place] [address] Phone Care Team Providers Care Scraper Tender Name Role Phone Jacob Bowen MD Primary Care Prov ider Shahid Khan MD Unavailable Encounter Details Date Type Department Care Team (Late st Contact Info) Description 05/16/[address] [facility] [address] [facility] [address] [place] [address] Micky Shafer LPN Social History Tobacco Use Types Packs/Day Years Used Date Smoking Tobacco: Former Cigarettes Q uit: 02/05/2020 Smokeless Tobacco: Never Alcohol Use Standard Drinks/Week Comments Not Currently 0 (1 standard drink = 0.6 oz pur e alcohol) rare Sex and Gender Information Value Date Recorded Sex Assigned at Not on file Legal Sex Male 2:02 AM CARBONATOR Gender Identity Male 05/20/2020 4:45 PM CARBONATOR Sexual Orientation Straight 09/11/2019 5: 16 PM CDT documented as of this encounter Plan of Treatment Not on file documented as of this encounter Visit Diagnoses Not on filedocumented in this encounter Care Teams Scraper Tender Relationship Specialty Start Date End Date Jacob Bowen MD [address] [place] [address] PCP - General 01/14/17 Shahid Khan MD [address] [place] [address] Referring Physician Cardiovascular Disease 02/05/20 TIFFANIE PEÑA III, [address] [address] Referring Physician Emergency Medicine 02/07/19 documented as of this encounter
[2024-12-16 07:50] VITALS: BP 160/87; PULSE 53; RESP 18; TEMP 36.6; O2SAT 97
--- NOTE | 2024-12-16 07:54 | ED.GENADULT ---
HPI - General Adult General Chief complaint: Skin/Abscess/Foreign Body Stated complaint: fish hook in R big toe Time Seen by Provider: 12/16/24 07:53 Source: patient and family Mode of arrival: ambulatory Limitations: no limitations History of Present Illness HPI narrative: [place] to right big toe 3 hour prior to arrival while cleaning old stuff at home. Unknown last tetanus shot Related Data Home Medications ?Medication ?Instructions ?Recorded ?Confirmed ?Last Taken ?Type sildenafil 100 mg tablet 50 mg PO DAILY PRN 11/18/22 06/13/24 Unknown History nitroglycerin 0.3 mg sublingual 0.3 mg sublingual Q5M PRN 12/22/23 06/13/24 Unknown History tablet Allergies Allergy/AdvReac Type Severity Reaction Status Date / Time ticagrelor (From Brilinta) Allergy Anxiety Verified 12/16/24 07:55 Review of Systems Review of Systems: All systems reviewed & are unremarkable except as noted in HPI and below PMFSH Past Medical History Medical History Tobacco dependence Chronic back pain Normal colonoscopy 08/24 Pure hypercholesterolemia, unspecified Essential (primary) hypertension Gastro-esophageal reflux disease without esophagitis Atherosclerotic heart disease of [place] coronary artery with other forms of angina pectoris Abdominal aortic aneurysm, without rupture Being monitored. Most recent measurement was 4.4 centimeters per patient report. Obstructive sleep apnea (adult) (pediatric) Surgical History Surgical History History of rotator cuff surgery Left History of foot surgery Left 2005; Right 2010 History of right nephrectomy 2010 History of cholecystectomy Stented coronary artery Family History Family History Father Hypertension Acute myocardial infarction Sibling Family history of malignant neoplasm Family history of heart disease in male family member before age 55 Social History Social History Social History: Surrogate medical decision maker: Lida Márquez, spouse. Code status: Full code. Smoking packs per day: 2 Smoking cigarettes per day: 40.0 Years smoked: 60 Smoking pack-years: 120.00 Smoking status: Current every day smoker Tobacco type: cigarettes Second hand tobacco smoke exposure: Yes Alcohol intake: never Substance use: never Substance use type: does not use and marijuana Lack of Transportation: No Lack of Food: Never True Current Housing: I Have Housing Concerned About Future Housing: No Difficulty Paying Gas/Electric Bills: No Difficulty Paying for Meds: No Currently Unemployed: No Education: High School Diploma/GED Difficulty w/ Childcare or Family Care: No Living arrangements: with family Additional living arrangements comments: The patient lives with his in [place]. Occupation/Education: retired Additional occupation/education comments: Retired. Gender identity (if verbalized by the patient): Male Sexual Orientation (if Verbalized by the Patient): Straight or Heterosexual Spiritual care concerns: No Agree to blood products: Yes Exam Narrative: General appearance: Well-developed, well-nourished Skin: Normal color Vascular: Normal peripheral pulses, normal capillary refill. Musculoskeletal: Right big toe fishhook in place Neurologic: Alert and oriented ?3, COMPUTER NETWORKING INSTRUCTOR is normal as tested, no gross motor deficit Course Vital Signs Vital signs: Vital Signs Temperature 36.6 C 12/16/24 07:50 Pulse Rate 53 L 12/16/24 07:50 Respiratory Rate 18 12/16/24 07:50 Blood Pressure 160/87 H 12/16/24 07:50 Pulse Oximetry 97 12/16/24 07:50 Oxygen Delivery Room Air 12/16/24 07:50 Temperature 36.6 C 12/16/24 07:50 Pulse Rate 53 L 12/16/24 07:50 Respiratory Rate 18 12/16/24 07:50 Blood Pressure 160/87 H 12/16/24 07:50 Pulse Oximetry 97 12/16/24 07:50 Oxygen Delivery Room Air 12/16/24 07:50 Procedures Foreign Body Removal Foreign Body #1: Foreign Body Removal Date: 12/16/24 Foreign Body Removal Time: 09:37 Time Out Performed: yes (10) Site: right and other ( big toe) Description of foreign body: fish hook Sedation/Analgesia: none Technique: manual removal and removal with forceps Confirmed by:: direct visualization Complications: none Post-procedure exam: awake, alert Neurovascular: normal capillary fill Foreign Body Removal Narrative: Lidocaine 1% Betadine Cutting the fish hook then pushed through, successful Medical Decision Making Vital Signs Vital Signs: Vital Signs Temperature 36.6 C 12/16/24 07:50 Pulse Rate 53 L 12/16/24 07:50 Respiratory Rate 18 12/16/24 07:50 Blood Pressure 160/87 H 12/16/24 07:50 Pulse Oximetry 97 12/16/24 07:50 Oxygen Delivery Room Air 12/16/24 07:50 Temperature 36.6 C 12/16/24 07:50 Pulse Rate 53 L 12/16/24 07:50 Respiratory Rate 18 12/16/24 07:50 Blood Pressure 160/87 H 12/16/24 07:50 Pulse Oximetry 97 12/16/24 07:50 Oxygen Delivery Room Air 12/16/24 07:50 Discharge Plan Discharge Clinical Impression: Fish hook in great toe Patient Disposition: Home Condition: Stable Instructions: Antibiotic Form, Puncture Wound in the Foot (ED) Additional Instructions: Return if symptoms are worsening , call your family physician for appointment, take Tylenol as as needed for aches and pain, continue home medications. Keep foot elevated Patient Language: Thai Prescriptions: New cephalexin 500 mg tablet 500 mg PO Q6H 7 Days Qty: 28 0RF No Action nitroglycerin 0.3 mg tablet, sublingual 0.3 mg sublingual Q5M PRN Rx Instructions: do not exceed 3 doses per episode albuterol sulfate 2.5 mg /3 mL (0.083 %) Solution For Nebulization 2.5 mg inhalation Q6HRT Qty: 30 0RF aspirin 81 mg Tablet,Delayed Release (Dr/Ec) 81 mg PO QAM Qty: 30 0RF sildenafil 100 mg tablet 50 mg PO DAILY PRN Rx Instructions: administer 30 minutes to 4 hours before activity omega-3 fatty acids 1,000 mg capsule 1,000 mg PO BID Qty: 180 1RF amlodipine 5 mg tablet 5 mg PO DAILY Qty: 90 3RF losartan 100 mg tablet 100 mg PO DAILY Qty: 90 2RF furosemide 80 mg tablet 40 mg PO DAILY Qty: 90 1RF famotidine 40 mg tablet 40 mg PO BID Qty: 180 3RF gabapentin 600 mg tablet 600 mg PO QID Qty: 120 6RF pantoprazole 40 mg tablet,delayed release (DR/EC) 40 mg PO QAM Qty: 90 0RF trazodone 100 mg tablet 100 mg PO HS Qty: 90 1RF lidocaine [Lidoderm] 5 % adhesive patch,medicated 2 patch transdermal DAILY Qty: 60 3RF isosorbide mononitrate 60 mg tablet extended release 24 hr 60 mg PO DAILY Qty: 90 2RF atorvastatin 20 mg tablet 20 mg PO HS Qty: 90 2RF bupropion HCl 150 mg tablet sustained-release 12 hr 150 mg PO BID Qty: 180 1RF potassium chloride 20 mEq tablet extended release 40 meq PO DAILY Qty: 180 2RF testosterone 20.25 mg/1.25 gram (1.62 %) gel in metered-dose pump 4 pump topical DAILY Qty: 150 0RF Rx Instructions: apply 2 pump amount over max area of EACH upper arm and shoulder colestipol 1 gram tablet See Rx Instructions .ROUTE .COMPLEX Qty: 360 2RF Dose Instruction: TAKE 2 TABLETS BY MOUTH TWICE DAILY Rx Instructions: TAKE 2 TABLETS BY MOUTH TWICE DAILY oxycodone-acetaminophen 10-325 mg tablet 1 tablet PO Q4H PRN (Reason: Pain) Qty: 180 0RF modafinil 200 mg tablet 400 mg PO QAM Qty: 60 5RF Follow-up/Referrals: Jacob Bowen MD [Primary Care Provider] -
--- OUTSIDE RECORDS SUMMARY | 2024-12-16 08:03 | XMS_ITS | Continuity of Care Document ---
Author Organization [facility] Address [address] [place] [address] Phone Care Team Providers Care Manager Transplant Name Role Phone Quentin Pineda Unavailable Unavailable [...] Diagnoses Date Provider Providers Copied on Encounter [facility], [address], [place], [place], [id number], [place] tel:[phone] [facility] No Information Florence Saavedra. [address] [place], [address], [place]. tel:[phone] Referring Provider: Quentin Serrano, [address] [place], [address]. tel:[phone] [facility], [address], [place], [place], [id number], [place] tel:[phone] [facility] No Information Jun-0 7-200 8 Miriam Saavdera. [address] [place], [address], [place]. tel:[phone] [facility], [address], [place], [place], [id number], [place] tel:[phone] [facility] No Information 1-200 8 Miriam Saavedra. [address] [place], [address], [place]. tel:[phone] Referring Provider: Quentin Serrano, [address] [place], [address]. tel:[phone] [facility], [address], [place], [place], [id number], [place] tel:[phone] [facility] No Information 4-200 8 Miriam Saavedra. [address] [place], [address], [place]. tel:[phone] [facility], [address], [place], [place], [id number], [place] tel:[phone] [facility] No Information Dec-1 0-200 7 Miriam Saavedra. [address] [place], [address], [place]. tel:[phone] [facility], [address], [place], [place], [id number], [place] tel:[phone] [facility] No Information Nov-1 9-200 7 Miriam Saavedra. [address] [place], [address], [place]. tel:[phone] [facility], [address] [place] [address] [address], [place], [place], [id number], [place] tel:[phone] [facility] No Information Oct-2 5-200 7 Miriam Saavedra. [address] [place], [place], [facility], . tel:[phone] [facility], [address] [place] [address] [address], [place], [place], [id number], [place] tel:[phone] [facility] No Information Oct-1 1-200 7 Miriam Saavedra. [address] [place], [address], [place]. tel:[phone] Office Consultation [facility], [address] [place] [address] [address], [place], [place], [id number], [place] tel:[phone] [facility] No Information Sep-2 7-200 7 Miriam Saavedra. [address] [place], [place], [facility], [place]. tel:[phone] Referring Provider: Blair Goldman, [address] [place], [place] [address], [place], [place], [facility]. tel:[phone] [facility], [address] [place] [address] [address], [place], [place], [id number], [place] tel:[phone] [facility] No Information Sep-2 1-200 7 Justin Pinto. [facility] , [address], [place], [place], [facility], . tel:[phone] Family History Family Member Type Diagnosis Age At Onset No Information Payers Payer name Insurance type Covered alliance party ID Sami zayas(s) [facility] Out Of State [id number] Social History Type Description Quantity Date Captured [...]
[2024-12-16] MEDS: TETANUS,DIPHTHERIA,AC PERTUSSIS ADULT (0.5 ML) BOOSTRIX IM (09:09)
[2024-12-16] MEDS: CEPHALEXIN 500 MG CAPSULE PO (09:41)
[2024-12-16 09:43] VITALS: BP 151/80; PULSE 75; RESP 18; O2SAT 99
--- NOTE | 2024-12-16 09:46 | PC.NURSE ---
whole hook removed from the toe by the EDP.
== END 2024-12-16 09:46 | disposition home or self-care (01) ==
PROVIDERS: Emergency Provider Emergency Medicine; PCP Family Medicine Adolescent Medicine
DX: S91.141A Puncture wound with foreign body of right great toe without damage to nail, initial encounter (principal); W45.8XXA Other foreign body or object entering through skin, initial encounter; I10 Essential (primary) hypertension; G47.33 Obstructive sleep apnea (adult) (pediatric); K21.9 Gastro-esophageal reflux disease without esophagitis; M54.9 Dorsalgia, unspecified; G89.29 Other chronic pain; F17.210 Nicotine dependence, cigarettes, uncomplicated; Z23 Encounter for immunization
CPT/HCPCS: 90471; 90715; 99283; A9270; J2003

== ENCOUNTER 2025-03-30 13:56 | Outpatient (CLI) | payer MEDICARE, SELFPAY ==
--- OUTSIDE RECORDS SUMMARY | 2025-03-30 14:11 | XMS_ITS | Encounter Summary ---
Author Organization [facility] Address [address] [place] [address] Phone Care Team Providers Care Button Decorating Machine Operator Name Role Phone Jacob Bowen MD Primary Care Prov ider Shahid Khan MD Unavailable Encounter Details Date Type Department Care Team (Late st Contact Info) Description 05/16/2020 Telephone [facility] [address] [facility] Medical Office [address] [place] [address] Micky Shafer LPN Social History Tobacco Use Types Packs/Day Years Used Date Smoking Tobacco: Former Cigarettes Q uit: 02/05/2020 Smokeless Tobacco: Never Alcohol Use Standard Drinks/Week Comments Not Currently 0 (1 standard drink = 0.6 oz pur e alcohol) rare Sex and Gender Information Value Date Recorded Sex Assigned at Not on file Legal Sex Male 2:02 AM HYDRAULIC JACK ADJUSTER Gender Identity Male 05/20/2020 4:45 PM HYDRAULIC JACK ADJUSTER Sexual Orientation Straight 09/11/2019 5: 16 PM CDT documented as of this encounter Plan of Treatment Not on file documented as of this encounter Visit Diagnoses Not on filedocumented in this encounter Care Teams Button Decorating Machine Operator Relationship Specialty Start Date End Date Jacob Bowen MD PCP - General 01/14/17 Shahid Khan MD Referring Physician Cardiovascular Disease 02/05/20 TIFFANIE PEÑA [address] [address] Referring Physician Emergency Medicine 02/07/19 documented as of this encounter
--- OUTSIDE RECORDS SUMMARY | 2025-03-30 14:11 | XMS_ITS | Encounter Summary ---
Author Organization [facility] Address [address] [place] [address] Care Team Providers Care Injection Moulding Machine Operator Name Role Phone Unavailable Primary Care Provider Unavailabl e Encounter Details Date Type Department Care Team (Late st Contact Info) Description 10/10/2007 Inpatient Historical HIS PATIENT IN A BED Jono Cardona MD [address] [facility] [address] [place] [address] Other Chest Pain Social History Tobacco Use Types Packs/Day Years Used Date Smoking Tobacco: Never Assessed Sex and Gender Information Value Date Recorded Sex Assigned at Not on file Legal Sex Male 5:14 AM DISABILITY HEARING OFFICER Gender Identity Not on file Sexual Orientation [...] PM CDT Please type in written order [facility] [address] [place] [address] [email or web address] Cardiac Catheterization Comprehensive Report Patient: Ivan Márquez Study ID: [id number] Gender: M : 1945 Age: 62 years Race: 1 Room: Bed: Height: 72 in ( 182.9 cm ) Study Date: October 11, 2007 Patient status: Outpatient Weight: 284.9 lb ( 129.5 kg ) Access. #: [id number] POC: Attending MD: Tyrone Performing MD: Tyrone [...] - 10/11/2007 Please type in written order [place] [address] [place] [address] [email or web address] Cardiac Catheterization Comprehensive Report Patient: Ivan Márquez Study ID: [id number] Gender: M : 1945 Age: 62 years Race: 1 Room: Bed: Height: 72 in ( 182.9 cm ) Study Date: October 11, 2007 Patient status: Outpatient Weight: 284.9 lb ( 129.5 kg ) Access. #: [id number] POC: Attending MD: Tyrone Mayberry MD: Tyrone [...]
--- OUTSIDE RECORDS SUMMARY | 2025-03-30 14:11 | XMS_ITS | Encounter Summary ---
Author Organization [facility] Address [address] [place] [address] Care Team Providers Care Palaeontologist Name Role Phone Jacob Bowen MD Primary Care Prov ider Shahid Khan MD Unavailable Encounter Details Date Type Department Care Team (Late st Contact Info) Description 07/16/2017 Orders Only [facility] Health Information Management [address] [place] [address] Scanning, Provider Social History Tobacco Use Types Packs/Day Years Used Date Smoking Tobacco: Never Assessed Sex and Gender Information Value Date Recorded Sex Assigned at Not on file Legal Sex Male 2:02 AM BORING MACHINE SET UP OPERATOR JIG Gender Identity Male 05/20/2020 4:45 PM BORING MACHINE SET UP OPERATOR JIG Sexual Orientation Straight 09/11/2019 5: 16 PM CDT documented as of this encounter Functional Status * BP Location Answer Date of Assessment Author Right arm 07/19/2017 12:09 PM CDT Malia Carias MA * BP Location Answer Date of Assessment Author Right arm 07/19/2017 12:09 PM CDT Malia Carias MA documented as of this encounter Plan of Treatment Not on file documented as of this encounter Procedures Procedure Name Priority Date/Time Associated Diagnosis Comments SCAN - RADIOLOGY/IMAGING 07/16/2017 documented in this encounter Results * SCAN - RADIOLOGY/IMAGING (07/16/2017) Anatomical Region Laterality Modality Other us Provider Scanning Final Result documented in this encounter Visit Diagnoses Not on filedocumented in this encounter Care Teams Palaeontologist Relationship Specialty Start Date End Date Jacob Bowen MD PCP - General 01/14/17 Shahid Khan MD Referring Physician Cardiovascular Disease 02/05/20 TIFFANIE PEÑA [place] [id number] Referring Physician Emergency Medicine 02/07/19 documented as of this encounter
--- OUTSIDE RECORDS SUMMARY | 2025-03-30 14:11 | XMS_ITS | Encounter Summary ---
Author Organization [facility] Address [address] [place] [address] Phone Care Team Providers Care Rn Clinical Documentation Specialist Name Role Phone Jacob Bowen MD Primary [...] on file Legal Sex Male 2:02 AM COBBLER APPRENTICE Gender Identity Male 05/20/2020 4:45 PM COBBLER APPRENTICE Sexual Orientation Straight 09/11/2019 5: 16 PM [...] on filedocumented in this encounter Care Teams Rn Clinical Documentation Specialist Relationship Specialty Start Date End Date Jacob Bowen MD PCP - General 01/14/17 Shahid Khan MD Referring Physician Cardiovascular Disease 02/05/20 documented as of this encounter
--- OUTSIDE RECORDS SUMMARY | 2025-03-30 14:11 | XMS_ITS | Clinical Summary ---
Author Organization [facility] Address [address] [place] [address] Care Team Providers Care Log Roller Name Role Phone Jacob Bowen MD Primary [...] capsule by mouth every morning Active glucosamine/alcira armstrong A sod (glucosamine-cho ndroitin) 167-133 mg [...] MOUTH 45 MINUTES BEFORE PROCEDURE 5 Active omega-3 fatty acids-fish oil 300-1,000 mg capsule Take 2 capsules (2 g total) by mouth daily Active Active Problems Problem Noted Date Diagnosed Date CKD (chronic kidney disease) stage 3, GFR 30-59 ml/min 09/26/2024 MGUS (monoclonal gammopathy of unknown significa nce) 03/07/2021 Anemia in stage 3 chronic kidney disease 021 Renal osteodystrophy 07/16/2020 Mixed hyperlipidemia 04/01/2020 Basal cell carcinoma (BCC) of skin of nose 02/04 Overview (02/05/2020): Added automatically from request for surgery [id number] Planned postoperative wound closure 02/05/2020 Overview (02/05/2020): Added automatically from request for surgery [id number] Isolated proteinuria without specific morphologi c lesion [...] artery disease of n ative artery of [place] heart with stable angina pectoris 12/12/2015 Overview (08/15/2016): Coronary artery disease involving [place] coronary artery of [place] heart without angina pectoris Hypotension due to [...] Encounters Date Type Department Care Team Description 03/19/2025 Orders Only [facility] Medicine Nephrology [address] [facility] Medicine 5th [place] [address] [place] [address] Bernabe Nichols MD Stage 3a chronic kidney disease (HCC) (Primary Dx); Anemia in stage 3 chronic kidney disease, unspecified whether stage 3a or 3b CKD (HCC); Primary hypertension; Persistent proteinuria from Last 3 Months Immunizations Immunization Administration [...] Vitamin D deficiency Iron deficiency Gastric ulcer [place] to be relat ed to combination of NSAIDs and smoking contributing to history of poor healing History of NH (myocardial infarction) With history of cardiac arrest GI bleed In 08/2016, pres umed diverticular bleed Abdominal aortic aneurysm (AAA) Abdominal pain 11/29/2015 Central retinal artery occlusion 04/05/2017 Angina pectoris 04/04/2014 Angina pectoris Tobacco dependence syndrome 04/04/2014 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 12/12/2015 Coronary artery disease invo lving [place] coronary artery of [place] heart without angina pectoris Obstructive sleep apnea [...] Used Date Smoking Tobacco: Every Day Cigarettes Last attempted to quit: 02/05/2020 Smokeless Tobacco: Never Tobacco Cessation:Ready to Q uit: Not Asked; Counseling Given: Not Answered Alcohol Use Standard Drinks/Week Comments Not Currently 0 (1 standard drink = 0.6 oz pur e alcohol) rare Sex and Gender Information Value Date Recorded Sex Assigned at Not on file Legal Sex Male 2:02 AM HEALTH INFORMATION TECHNICIAN Gender Identity Male 05/20/2020 4:45 PM HEALTH INFORMATION TECHNICIAN Sexual Orientation Straight 09/11/2019 5: 16 PM CDT Last Filed Vital Signs Vital Sign Reading Time Taken Comments Blood Pressure 124/73 09/26/2024 2:21 PM CDT Pulse 65 09/26/2024 2:21 PM CDT Temperature 36.4 C (97.6 F) 09/29/2023 10:55 AM CDT Respiratory Rate 18 09/29/2023 10:55 AM CDT Oxygen Saturation 99% 06/19/2024 10:12 AM HEALTH INFORMATION TECHNICIAN Inhaled Oxygen Concentration - - Weight 100.2 kg (221 lb) 06/19/2024 10:12 AM HEALTH INFORMATION TECHNICIAN Height 182.9 cm (6') 06/19/2024 10:12 AM HEALTH INFORMATION TECHNICIAN Body Mass Index 29.97 06/19/2024 10:12 AM HEALTH INFORMATION TECHNICIAN Plan of Treatment Health Maintenance Due Date Last Done Comments Depression Screening 1945 Hepatitis B Screening 1962 Well Visit 65+ 2009 Fall Risk Assessment 02/08/2021 02/09/2020 Covid-19 Vaccine (4 - 2024-2 6 season) 2025 02/18/2021, 07/26/2020, 07/05/2020 Influenza Vaccine (#1) 2025 4, 02/21/2021, 02/11/2021, Additional history exists DTaP/Tdap/Td Vaccine (3 - Td or Tdap) 12/16/2034 12/16/2024, 02/07/2019 Colon Cancer Screening-CT Colonography Discontinued 08/14/2016, 01/08/2016 Colon Cancer Screening-Colonoscopy Discontinued 08/14/2016, 01/08/2016 Colon Cancer Screening-DNA Stool Discontinued 08/15/19 17, 01/08/2016 Colon Cancer Screening-FIT Discontinued 08/14/2016, Colon Cancer Screening-FOBT Discontinued 08/14/2016, 0 01/08/2016 Colon Cancer Screening-Sigmoidoscopy Discontinued 08/14/2016, 01/08/2016 Colorectal Cancer Screening Discontinued Pneumococcal vaccine 65+ Completed 021, 02/09/2019, 03/12/2014 Zoster Vaccine Completed 06/24/2023, 04/13/2023 Abdominal Aortic Aneurysm (A AA) Screen Completed 12/20/2024, 12/20/2024, 12/31/2023, Additional history exists Medical Devices Implanted Type Area Slate Trimmer Device Identifier Shelf Expiration Date Model / Serial / Lot [employer] [id number] Synergy 2.5mm 32mm 144cm Radiopaque 1 Access Port Inflation Lumen - [id number] Implanted:Qty: 1 on 02/24/2019 by Shahid Khan MD at [facility] N/A: Coronary Fanear Garth 08/03/2020 [id number] / / [id number] Description:BARTOLO to Circumfle x Procedures Procedure Name Priority Date/Time Associated Diagnosis Comments CTA ABDOMEN PELVIS W WO CONTRAST Schedule Routine, Read Routine (OP Routine) 09/03/2021 11:38 AM CDT Abdominal aortic aneurysm (AAA) without rupture COLONOSCOPY REPORT 08/14/2016 from Last 3 Months or Most Recently Relevant to Health Maintenance Results * CTA Abdomen Pelvis (09/03/2021 11:38 AM CDT) Anatomical Region Laterality Modality Body N/A Computed Tomogra phy 09/03/2021 2:06 PM CDT Impressions 09/03/2021 4:39 PM CDT IMPRESSION: 1. 424 mm x 42 mm infrarenal abdominal aortic aneurysm, slightly increased since 2015 when it measured 39 x 38 mm [...] site: 24 mm AP x 24 mm uiheu-ao-ehxa Aortic diameter 10mm inferior to proximal implantation site: 24 mm AP x 22 mm iaxqm-ji-odkg Aortic diameter 15mm inferior to proximal implantation site: 22 mm AP x 22 mm opkhz-jv-zhsq Maximum outer aneurysm diameter: 42 mm AP x 42 mm mgwiz-ar-osot. Aortic neck length: 44 mm Right common [...] site: 24 mm AP x 24 mm pfinw-kh-gxrh Aortic diameter 10mm inferior to proximal implantation site: 24 mm AP x 22 mm qrohp-th-gogh Aortic diameter 15mm inferior to proximal implantation site: 22 mm AP x 22 mm jhzlg-pu-qqgq Maximum outer aneurysm diameter: 42 mm AP x 42 mm ymzah-mh-ozge. Aortic neck length: 44 mm Right common [...] Recently Relevant to Health Maintenance Insurance MEDICARE [facility]ICARE [facility] Advance Directives For more information, please contact: [phone] * Full Code (Latest Code Status on File) Date Activated Date Inactivated Comments 02/23/2019 4:20 AM 02/27/2019 3:14 PM Care Teams Log Roller Relationship Specialty Start Date End Date Jacob Bowen MD PCP - General 01/14/17 Shahid Khan MD Referring Physician Cardiovascular Disease 02/05/20
--- OUTSIDE RECORDS SUMMARY | 2025-03-30 14:11 | XMS_ITS | Encounter Summary ---
Author Organization [facility] Address [address] [place] [address] Phone Care Team Providers Care Virology Teacher Name Role Phone Jacob Bowen MD Primary Care Prov ider Shahid Khan MD Unavailable Encounter Details Date Type Department Care Team (Late st Contact Info) Description 04/05/2019 Orders Only [facility] Scanning, Provider Social History Tobacco Use Types Packs/Day Years Used Date Smoking Tobacco: Every Day Cigarettes Smokeless Tobacco: Never Alcohol Use Standard Drinks/Week Comments No 0 (1 standard drink = 0.6 oz pur e alcohol) Sex and Gender Information Value Date Recorded Sex Assigned at Not on file Legal Sex Male 2:02 AM SALES APPLICATIONS ENGINEER Gender Identity Male 05/20/2020 4:45 PM SALES APPLICATIONS ENGINEER Sexual Orientation Straight 09/11/2019 5: 16 PM [...] on filedocumented in this encounter Care Teams Virology Teacher Relationship Specialty Start Date End Date Jacob Bowen MD PCP - General 01/14/17 Shahid Khan MD Referring Physician Cardiovascular Disease 02/05/20 TIFFANIE PEÑA [address] [address] Referring Physician Emergency Medicine 02/07/19 documented as of this encounter
--- OUTSIDE RECORDS SUMMARY | 2025-03-30 14:11 | XMS_ITS | Clinical Summary ---
Author Organization [facility] Address [address] [place]: Epic Prelude ADT RAE BHAKTA [address] Care Team Providers Care Application Systems Engineer Name Role Phone Unavailable Primary Care Provider Unavailabl e Social History Tobacco Use Types Packs/Day Years Used Date Smoking Tobacco: Never Assessed Sex and Gender Information Value Date Recorded Sex Assigned at Not on file Legal Sex Male 5:14 AM GRID CASTER Gender Identity Not on file Sexual Orientation [...]
--- OUTSIDE RECORDS SUMMARY | 2025-03-30 14:11 | XMS_ITS ---
Author Organization [facility] Address [address] [place] [address] Care Team Providers Care Loom Cleaner Name Role Phone Jacob Bowen MD Primary [...] (02/05/2020): Added automatically from request for surgery [id number] Planned postoperative wound closure 02/05/2020 Overview (02/05/2020): Added automatically from request for surgery [id number] Isolated proteinuria without specific morphologi c lesion [...] artery disease of n ative artery of [place] heart with stable angina pectoris 12/12/2015 Overview (08/15/2016): Coronary artery disease involving [place] coronary artery of [place] heart without angina pectoris Hypotension due to [...] Lifetime Dose Automatic Entry Manual Entr y Fluoro Time 37.8 minutes 0 minutes 37.8 minutes Air kerma at the reference p oint (Ka,r) 4,794 mGy 0 mGy 4,794 mGy DLP 1,815 mGycm 1,815 mGycm 0 mGycm DAP 36,598.3 Gy-cm2 0 Gy-cm2 36,598.3 Gy- cm2 Resolved Problems Problem Noted Date Diagnosed Date Resolved Date Iron deficiency anemia, unspecified 08/20/2016 09/04/2021 RACHEL (iron deficiency anemia) 08/20/2016 09/04/2021 Anemia 02/17/2016 09/04/2021
--- OUTSIDE RECORDS SUMMARY | 2025-03-30 14:11 | XMS_ITS | Encounter Summary ---
Author Organization [facility] Address [address] [address] Care Team Providers Care Telecommunications Field Engineer Name Role Phone Jacob Bowen MD Primary Care Prov ider Jacob Bowen MD Primary Care Prov ider Veronica Jackson Primary Care Provider Jacob Tilley MD Primary Care Prov ider Shahid Khan MD Unavailable Encounter Details Date Type Department Care Team (Late st Contact Info) Description 03/23/2016 Orders Only [facility] ProviderGlenn MD [address] [place] [address] Social History Tobacco Use Types Packs/Day Years Used Date Smoking Tobacco: Never Assessed Sex and Gender Information Value Date Recorded Sex Assigned at Not on file Legal Sex Male 2:02 AM CHEMICAL LABORATORY CHIEF Gender Identity Male 05/20/2020 4:45 PM CHEMICAL LABORATORY CHIEF Sexual Orientation Straight 09/11/2019 5: 16 PM CDT documented as of this encounter Functional Status documented as of this encounter Plan of Treatment Not on file documented as of this encounter Procedures Procedure Name Priority Date/Time Associated Diagnosis Comments CARDIOLOGY REPORT 03/23/2016 documented in this encounter Results * CARDIOLOGY REPORT (03/23/2016) Anatomical Region Laterality Modality Other Narrative 03/23/2016 Ordered by an unspecified provider. us Historical Provider [facility] MICHELE MICHAELS Final Result documented in this encounter Visit Diagnoses Not on filedocumented in this encounter Care Teams Telecommunications Field Engineer Relationship Specialty Start Date End Date Jacob Bowen MD PCP - General 08/07/16 09/20/16 Jacob Bowen MD PCP - General 12/19/15 08/06/16 Veronica Jackson PCP - General 09/21/16 01/13/17 Jacob Bowen MD PCP - General 01/14/17 Shahid Khan MD Referring Physician Cardiovascular Disease 02/05/20 TIFFANIE PEÑA [address] [address] Referring Physician Emergency Medicine 02/07/19 documented as of this encounter
--- OUTSIDE RECORDS SUMMARY | 2025-03-30 14:11 | XMS_ITS | Clinical Summary ---
Author Organization [facility] Address [address] [place] [address] Care Team Providers Care Certified Registered Nurse Anesthetist Name Role Phone Unavailable Primary Care Provider Unavailabl e Source Comments [facility],non-owned Affiliates and Associated Physician Practices is amultiple site organization consisting of ambulatory clinics and hospital sitesin [place], [place], [place] and [place]. This disclosure is being madepursuant to the Care Everywhere program and may not contain all information available regarding this patient. Last updated 18.[employer] [facility] Allergies No known active allergies Medications * [...] on file Legal Sex Male 6:21 AM AUTOMATION AND CONTROLS SUPERVISOR Gender Identity Not on file Sexual Orientation Not on file Last Filed Vital Signs Vital Sign Reading Time Taken Comments Blood Pressure 171/75 03/26/2017 11:00 PM AUTOMATION AND CONTROLS SUPERVISOR Pulse 49 03/26/2017 11:00 PM AUTOMATION AND CONTROLS SUPERVISOR Temperature 36.7 C (98.1 F) 03/26/2017 8:45 PM AUTOMATION AND CONTROLS SUPERVISOR Respiratory Rate 16 03/26/2017 11:00 PM AUTOMATION AND CONTROLS SUPERVISOR Oxygen Saturation 95% 03/26/2017 11:00 PM AUTOMATION AND CONTROLS SUPERVISOR Inhaled Oxygen Concentration - - Weight 90.9 kg (200 lb 6.4 oz) 03/26/2017 8:45 P M AUTOMATION AND CONTROLS SUPERVISOR Height 182.9 cm (6') 03/26/2017 8:45 PM AUTOMATION AND CONTROLS SUPERVISOR Body Mass Index 27.18 03/26/2017 8:45 PM AUTOMATION AND CONTROLS SUPERVISOR Plan of Treatment Health Maintenance Due Date Last Done Comments DTAP/TDAP/TD VACCINES (1 - Tdap) 08/29/1964 PNEUMOCOCCAL VACCINE 50+ (1 of 1 - PCV) 1994 ZOSTER VACCINE (1 of 2) 1994 Respiratory Syncytial Virus (RSV) Vaccine Pt: or over 60 yrs (1 - 1-dose 75+ series) 08/29/2019 DEPRESSION SCREENING 05/10/2024 COVID-19 VACCINE (1 - 2024-2 6 season) 2025 INFLUENZA VACCINE (#1) 2025 HEPATITIS B VACCINE [...]
--- OUTSIDE RECORDS SUMMARY | 2025-03-30 14:11 | XMS_ITS | Encounter Summary ---
Author Organization [facility] Address [address] [place]: Epic Prelude ADT RAE BHAK[place] [address] Care Team Providers Care Principal Java Software Engineer Name Role Phone Unavailable Primary Care Provider Unavailabl e Encounter Details Date Type Department Care Team (Late st Contact Info) Description 04/02/1992 Outpatient Historical Dung Pool MD NO ADDRESS ON FILE Social History Tobacco Use Types Packs/Day Years Used Date Smoking Tobacco: Never Assessed Sex and Gender Information Value Date Recorded Sex Assigned at Not on file Legal Sex Male 5:14 AM MANAGER COMMUNITY RELATIONS Gender Identity Not on file Sexual Orientation Not on file documented as of this encounter Plan of Treatment Not on file documented as of this encounter Visit Diagnoses Not on filedocumented in this encounter
--- OUTSIDE RECORDS SUMMARY | 2025-03-30 14:11 | XMS_ITS | Encounter Summary ---
Author Organization [facility] Address [address] [place]: Epic Prelude ADT [place]AE [place] [address] Care Team Providers Care Yoghurt Maker Name Role Phone Unavailable Primary Care Provider Unavailabl e Encounter Details Date Type Department Care Team (Late st Contact Info) Description 07/20/1991 Outpatient Historical Dung Pool MD NO ADDRESS ON FILE Social History Tobacco Use Types Packs/Day Years Used Date Smoking Tobacco: Never Assessed Sex and Gender Information Value Date Recorded Sex Assigned at Not on file Legal Sex Male 5:14 AM MEDICAL ASSISTANT CARDIOLOGY Gender Identity Not on file Sexual Orientation Not on file documented as of this encounter Plan of Treatment Not on file documented as of this encounter Visit Diagnoses Not on filedocumented in this encounter
--- OUTSIDE RECORDS SUMMARY | 2025-03-30 14:11 | XMS_ITS | Encounter Summary ---
Author Organization [facility] Address [address] [address] Care Team Providers Care Studio Producer Name Role Phone Jacob Bowen MD Primary Care Prov ider Jacob Bowen MD Primary Care Prov ider Veronica Jackson Primary Care Provider Jacob Tilley MD Primary Care Prov ider Shahid Khan MD Unavailable Encounter Details Date Type Department Care Team (Late st Contact Info) Description 03/21/2016 Orders Only [facility] ProviderGlenn MD [address] [place] [address] Social History Tobacco Use Types Packs/Day Years Used Date Smoking Tobacco: Never Assessed Sex and Gender Information Value Date Recorded Sex Assigned at Not on file Legal Sex Male 2:02 AM FRAME STYLIST Gender Identity Male 05/20/2020 4:45 PM FRAME STYLIST Sexual Orientation Straight 09/11/2019 5: 16 PM CDT documented as of this encounter Functional Status documented as of this encounter Plan of Treatment Not on file documented as of this encounter Procedures Procedure Name Priority Date/Time Associated Diagnosis Comments CARDIOLOGY REPORT 03/21/2016 documented in this encounter Results * CARDIOLOGY REPORT (03/21/2016) Anatomical Region Laterality Modality Other Narrative 03/21/2016 Ordered by an unspecified provider. us Historical Provider CV CARDIAC SERVICES MICHELE MICHAELS Final Result documented in this encounter Visit Diagnoses Not on filedocumented in this encounter Care Teams Studio Producer Relationship Specialty Start Date End Date Jacob Bowen MD PCP - General 08/07/16 09/20/16 Jacob Bowen MD PCP - General 12/19/15 08/06/16 Veronica Jackson PCP - General 09/21/16 01/13/17 Jacob Bowen MD PCP - General 01/14/17 Shahid Khan MD Referring Physician Cardiovascular Disease 02/05/20 TIFFANIE PEÑA [address] [address] Referring Physician Emergency Medicine 02/07/19 documented as of this encounter
[2025-03-30 14:54] LABS: Hematocrit 37.6 % (42.0-52.0); Hemoglobin 11.6 g/dL (14.0-18.0); Immature Granulocyte Percent A 0.4 % (0-0.5); Lymphocytes Absolute Auto 1.20 K/mm3 (0.9-3.2); Mean Corpuscular HGB Conc 30.9 g/dl (32-36); Mean Corpuscular Hemoglobin 28.2 pg (26-34); Mean Corpuscular Volume 91.5 fl (80-100); Nucleated Red Blood Cells Absolute Auto 0.000 K/mm3 (0.0-0.012); Nucleated Red Blood Cells Perc 0.0 % (0.0-0.2); Platelet Count Result 191 k/mm3 (150-375); Red Blood Count 4.11 M/mm3 (4.6-6.20); White Blood Count 7.7 K/mm3 (4.5-10.0)
[2025-03-30 14:57] LABS: Add Urine Microscopic? NO; Appearance Urine Clear (Clear); Glucose Urine UA Negative (Negative); Leukocyte Esterase Ur Negative LEU/UL (Negative); Nitrate Urine Negative (Negative); Specific Grav Ur 1.012 (1.001-1.035)
[2025-03-30 15:07] LABS: Albumin Level 3.9 g/dL (3.5-5.1); Anion Gap 6 mmol/L (4-12); Blood Urea Nitrogen 19 mg/dL (9-20); Calcium 9.2 mg/dL (8.4-10.2); Carbon Dioxide 27 mmol/L (22-30); Chloride 105 mmol/L (98-107); Estimated Glomerular Filt Rate 38; Glucose 113 mg/dL (65-110); Potassium 4.3 mmol/L (3.4-5.0); Sodium 138 mmol/L (137-145)
[2025-03-30 15:09] LABS: Total Protein Urine Random 7 mg/dL; Ur Ttl Prot Creatinine Ratio 0.11 mg/mg (0-0.20)
[2025-03-30 15:19] LABS: Parathyroid Intact 39.0 pg/mL (14.5-75.2)
== END 2025-03-30 13:57 | disposition home or self-care (01) ==
PROVIDERS: PCP Family Medicine Adolescent Medicine
DX: I12.9 Hypertensive chronic kidney disease with stage 1 through stage 4 chronic kidney disease, or unspecified chronic kidney disease (principal); N18.31 Chronic kidney disease, stage 3a; D63.1 Anemia in chronic kidney disease; Z13.89 Encounter for screening for other disorder; R80.1 Persistent proteinuria, unspecified; E55.9 Vitamin D deficiency, unspecified; G47.33 Obstructive sleep apnea (adult) (pediatric); N25.0 Renal osteodystrophy
CPT/HCPCS: 36415; 80069; 81003; 82306; 82570; 83970; 84156; 85025